=== PATIENT | male | born 1955 | race Caucasian/White ===

== ENCOUNTER → 2016-12-22 | Outpatient (CLI) | payer MEDICARE | LOC: OD 09:06 | PROVIDERS: ATTEND Internal Medicine Medical Oncology | DX: C34.32 Malignant neoplasm of lower lobe, left bronchus or lung (principal) | CPT/HCPCS: 71020 ==

== ENCOUNTER 2017-04-06 00:18 | Emergency (ER) | payer MEDICARE ==
[2017-04-06 00:26] VITALS: BP 117/70
[2017-04-06] MEDS ORDERED: LIDOCAINE 1% INJ-PF (10 MG/ML) 30 ML SDV INJ ONE (00:39)
--- NOTE | 2017-04-06 00:43 | ER Document Report ---
ED General - General Chief Complaint: Laceration Stated Complaint: FOOT INJURY Time Seen by Provider: 04/06/17 00:36 Notes: Patient is a 61-year-old male who presents after cutting a bottom of his right foot. Patient stepped out of the car and sample came off and then he stepped on some sharp because of his foot. Because it is at the base of the right toe. He was bleeding earlier. He is on Plavix. Bleeding is now controlled. No other complaints or injuries other than a scrape over his right elbow. Tetanus shot was approximately 3-4 years ago. TRAVEL OUTSIDE OF THE [place] IN LAST 30 DAYS: No - Related Data Allergies/Adverse Reactions: Penicillins Allergy (Verified 08/06/16 21:34) Past Medical History - Social History Smoking Status: Never Smoker Frequency of alcohol use: None Drug Abuse: None Family History: Reviewed & Not Pertinent Patient has suicidal ideation: No Patient has homicidal ideation: No - Past Medical History Cardiac Medical History: Reports: Hx Coronary Artery Disease, Hx Heart Attack - x3, most recent 1997, Hx Hypercholesterolemia, Hx Hypertension, Hx Peripheral Vascular Disease Pulmonary Medical History: Reports: Hx Bronchitis, Hx COPD, Hx Pneumonia, Hx Sleep Apnea Neurological Medical History: Reports: Hx Migraine, Hx Seizures Renal/ Medical History: Reports: Hx Benign Prostatic Hyperplasia. Denies: Hx Peritoneal Dialysis Malignancy Medical History: Reports Hx Lung Cancer Musculoskeltal Medical History: Reports Hx Arthritis Psychiatric Medical History: Reports: Hx Anxiety, Hx Depression Past Surgical History: Reports: Hx Cardiac Catheterization - Stent 2, Hx Cardiac Surgery, Hx Cholecystectomy - Immunizations Immunizations up to date: Yes Hx Diphtheria, Pertussis, Tetanus Vaccination: Yes Hx Pneumococcal Vaccination: 09/20/11 Review of Systems - Review of Systems Notes: My Normal Review Basic REVIEW OF SYSTEMS: CONSTITUTIONAL : Denies fever, chills, or sweats. Denies recent illness. MUSCULOSKELETAL: cut on Base of right fourth toe. SKIN: Denies rash or skin lesions. NEUROLOGICAL: Denies sensory or motor loss. ALL OTHER SYSTEMS REVIEWED AND NEGATIVE. Physical Exam - Vital signs Vitals: Temp Pulse Resp BP Pulse Ox 97.6 F 91 18 117/70 95 04/06/17 00:20 04/06/17 00:20 04/06/17 00:20 04/06/17 00:20 04/06/17 00:20 - Notes Notes: General Appearance: Well nourished, somnolent but says that he is always like this after he takes his sleeping medications. This is his normal baseline at nighttime., cooperative, no acute distress, no obvious discomfort. Vitals: reviewed, See vital signs table. Extremities: strength 5/5 in all extremities, good pulses in all extremities, cut on the mei of the right 4th toe on the plantar aspect. Wound is dirty, no edema. Skin: warm, dry, appropriate color, no rash. superficial abrasion to right arm. Neuro: distal Sensation intact. Course - Vital Signs Vital signs: Temp Pulse Resp BP Pulse Ox 97.6 F 91 18 117/70 95 04/06/17 00:20 04/06/17 00:20 04/06/17 00:20 04/06/17 00:20 04/06/17 00:20 - Transfer of Care Notes: 04/06/17 01:53 Wound was thoroughly irrigated and cleaned. It was sutured closed. The nurse did apply sterile dressings to the wound of the toe. She also applied a sterile dressing to the skin tear on the right arm. I will place him on doxycycline because the wound is on the bottom of the foot to the dirty area. I will do this to help prevent infection. X-ray showed no evidence for foreign body. Patient will be discharged home but they are encouraged to return to ER if there is any redness or swelling or signs of infection. Patient's family member agrees with plan and patient will be discharged home. Dictation of this chart was performed using voice recognition software; therefore, there may be some unintended grammatical errors. Procedures - Laceration/Wound Repair Right Toe 4th digit Wound length (cm): 1 Wound's Depth, Shape: Linear Anesthetic type: 1% Lidocaine Wound explored: Clean Irrigated w/ Saline (mLs): 90 Wound Repaired With: Sutures Suture Size/Type: 6:0, Ethilon Number of Sutures: 3 Post-procedure NV exam normal: Yes Complications: No Discharge - Discharge Clinical Impression: Toe laceration Qualifiers: Encounter type: initial encounter Toe: unspecified toe Damage to nail status: without damage Foreign body presence: without foreign body Laterality: right Qualified Code(s): S91.119A - Laceration without foreign body of unspecified toe without damage to nail, initial encounter Condition: Good Disposition: HOME, SELF-CARE Additional Instructions: LACERATION CARE: Your laceration has been sutured to keep the skin edges aligned during healing. The time of suture removal depends on the nature and location of your cut. Please follow the care instructions the doctor has outlined for you and return for further care, according to the schedule you've been given. Keep the wound and dressing clean. Unless you were told otherwise, you may shower daily, blotting the wound dry with a clean, unused towel. At other times, If the dressing gets wet or blood soaked, remove it and blot the wound dry, then reapply a new dressing. Unless you were instructed otherwise, dressings should be changed at least daily. If any signs of infection occur (swelling, redness, drainage, increasing tenderness, red streaks, tender lumps in the armpit or groin above the laceration, or fever), see the doctor immediately. SOAP CLEANSING: Gently wash the wound daily using a mild soap (like Ivory, Phisoderm, Neutrogena). Use warm water, rubbing gently until all debris, ooze, and crusting have been washed from the wound. Allow to dry briefly (about 10 minutes) after cleaning. Repeat this cleansing at least three times a day for the first two days and then once or twice a day. PROPHYLACTIC ANTIBIOTIC: The antibiotics which have been prescribed are designed to decrease the risk of infection. Only certain types of wounds benefit from this -- the typical cut, scrape, or burn DOES NOT require antibiotics. Of course, infection can still occur despite the use of prophylactic antibiotics. Your wound will heal with less chance of an infectious complication if you take the medication as directed. The most important dose is the FIRST dose, so don't delay filling the prescription! ORAL FOLLOW-UP CARE: Your sutures should be removed in __7___ days. To facilitate a timely removal of your sutures, you may return to the Emergency Department at [facility]. You do not need to call for an appointment, but the best time to come in for suture removal is early in the morning. If you have been referred to another physician for follow-up care, call that physicians office for an appointment as you were instructed. If you experience a significant change in your laceration, or if you are concerned there may be an infection (swelling, redness, drainage, increasing tenderness, red streaks, tender lumps in the armpit or groin above the laceration, or fever) , return to the Emergency Department immediately re-evaluation. Please stay out of the sun because the antibiotic you are on will make your skin very sensitive to the sun. Prescriptions: Doxycycline Hyclate 100 mg PO AC #7 capsule
--- NOTE | 2017-04-06 01:36 | RADIOLOGY REPORT (SQ) ---
EXAM DESCRIPTION: TOE RIGHT COMPLETED DATE/TIME: 04/06/2017 1:23 am REASON FOR STUDY: laceration 4th toe right foot COMPARISON: None. NUMBER OF VIEWS: Three views. 4 images. TECHNIQUE: AP, lateral, and oblique images acquired of the right fourth toe. LIMITATIONS: None. FINDINGS: MINERALIZATION: Normal. BONES: No acute fracture or dislocation. No worrisome bone lesions. JOINTS: No effusions. SOFT TISSUES: Clinically known right 4th toe soft tissue laceration. No foreign body. OTHER: No other significant finding. IMPRESSION: Soft tissue injury. No evidence of acute bone or joint involvement. No radiopaque fore ign body. COMMENT: SITE OF TRAUMA/COMPLAINT MARKED/STAMP COMPLETED: YES. TECHNICAL DOCUMENTATION: JOB ID: [id number] [employer]- All Rights Reserved
[2017-04-06] MEDS ORDERED: DOXYCYCLINE HYCLATE 100 MG TABLET PO ONE (01:51)
== END 2017-04-06 02:30 | disposition home or self-care (01) ==
LOC: ER 00:18
PROC: 0HQMXZZ Repair Right Foot Skin, External Approach (ICD-10-PCS; principal; 2017-04-06)
DX: S91.311A Laceration without foreign body, right foot, initial encounter (principal); W45.8XXA Other foreign body or object entering through skin, initial encounter
CPT/HCPCS: 99283; 73660; 12001; A9270; J3490

== ENCOUNTER → 2017-12-16 | Outpatient (CLI) | payer MEDICARE ==
--- NOTE | 2017-12-16 14:19 | RADIOLOGY REPORT (SQ) ---
EXAM DESCRIPTION: CT CHEST WITH COMPLETED DATE/TIME: 12/16/2017 11:52 am REASON FOR STUDY: PERSONAL HX OF LUNG CA (Z85.118) Z85.118 PERSONAL HISTORY OF MALIGNANT NEOPLASM O F BRONCHUS A COMPARISON: Chest x-ray 12/22/[address] 03/31/2015 TECHNIQUE: CT scan of the chest performed using helical scanning technique with dynamic intravenous contrast injection. Images reviewed with lung, soft tissue and bone windows. Reconstructed coronal and sagittal MPR images reviewed. All images stored on PACS. All CT scanners at this facility use dose modulation, iterative reconstruction, and/or weight based d osing when appropriate to reduce radiation dose to as low as reasonably achievable (ALARA). [facility]: Dose Right [facility]: CareDose [facility]: Dose Right [facility]: Teradose 4D [facility]: [employer] CONTRAST TYPE AND DOSE: contrast/concentration: Isovue 370.00 mg/ml; Total Contrast Delivered: 80.0 ml; Total Saline Delivered: 55.0 ml RENAL FUNCTION: Creatinine 0.8 RADIATION DOSE: CT Rad equipment meets quality standard of care and radiation dose reduction techniq ues were employed. CTDIvol: 6.4 mGy. DLP: 250 mGy-cm. . LIMITATIONS: None. FINDINGS: LUNGS AND PLEURA: Emphysematous changes are present in both upper lobes. There is no new pulmonary mass. There is no pleural effusion. HILAR AND MEDIASTINAL STRUCTURES: No identified masses or abnormal nodes. HEART AND VASCULAR STRUCTURES: No aneurysm or dissection. No central pulmonary emboli. No pericardi al effusion. HARDWARE: None in the chest. UPPER ABDOMEN: No significant findings. Limited exam. THYROID AND OTHER SOFT TISSUES: No masses. No adenopathy. BONES: No significant finding. OTHER: No other significant finding. IMPRESSION: Pulmonary emphysema. There is no evidence of recurrent or metastatic neoplasm in the est. TECHNICAL DOCUMENTATION: JOB ID: [id number] Quality ID # [id number]: Final reports with documentation of one or more dose reduction techniques (e.g., Au tomated exposure control, adjustment of the mA and/or kV according to patient size, use of iterative reconstruction technique) 2010 [employer]- All Rights Reserved Reading location - IP/workstation name: [email or web address]
== END ==
LOC: RAD 10:41
PROVIDERS: ATTEND Internal Medicine
DX: Z85.118 Personal history of other malignant neoplasm of bronchus and lung (principal); J43.9 Emphysema, unspecified
CPT/HCPCS: 71260; 82565

== ENCOUNTER 2018-10-17 22:38 | Emergency (ER) | payer MEDICARE ==
[2018-10-18] MEDS ORDERED: OXYCODONE-ACETAMINOPHEN 5-325 MG TABLET PO ONE (00:34)
--- NOTE | 2018-10-18 00:58 | ER Document Report ---
HPI - HPI Patient complains to provider of: right rib pain Time Seen by Provider: 10/18/18 00:19 Pain Level: 5 Context: Patient is a 63-year-old male presents to the emergency department complaining of a right rib pain. Patient states about a week ago he tripped and fell onto the concrete onto his right side. Patient states he has been experiencing right pain below his scapula and radiating around underneath his right arm. Patient states it hurts more when you palpate that area and when he takes a deep breath. Patient denies hitting his head, neck, or loss of consciousness upon initial fall. Past medical history: [place], left lung cancer, hypertension, hyperlipidemia Medications: Unknown Allergies: Penicillin Past Medical History - General Information source: Patient - Social History Smoking Status: Current Every Day Smoker Chew tobacco use (# tins/day): No Frequency of alcohol use: None Drug Abuse: None Family History: Reviewed & Not Pertinent Patient has suicidal ideation: No Patient has homicidal ideation: No - Past Medical History Cardiac Medical History: Reports: Hx Coronary Artery Disease, Hx Heart Attack - x3, most recent 1997, Hx Hypercholesterolemia, Hx Hypertension, Hx Peripheral Vascular Disease Pulmonary Medical History: Reports: Hx Bronchitis, Hx COPD, Hx Pneumonia, Hx Sleep Apnea Neurological Medical History: Reports: Hx Migraine, Hx Seizures Renal/ Medical History: Reports: Hx Benign Prostatic Hyperplasia. Denies: Hx Peritoneal Dialysis Malignancy Medical History: Reports Hx Lung Cancer Musculoskeletal Medical History: Reports Hx Arthritis Psychiatric Medical History: Reports: Hx Anxiety, Hx Depression Past Surgical History: Reports: Hx Cardiac Catheterization - Stent 2, Hx Cardiac Surgery, Hx Cholecystectomy - Immunizations Immunizations up to date: Yes Hx Diphtheria, Pertussis, Tetanus Vaccination: Yes Hx Pneumococcal Vaccination: 09/20/11 Vertical Provider Document - CONSTITUTIONAL Agree With Documented VS: Yes Notes: GENERAL: Smells heavily of cigarette smoke in patient room. Alert, interacts well. No acute distress. HEAD: Normocephalic, atraumatic. EYES: Pupils equal, round, and reactive to light. Extraocular movements intact. ENT: Oral mucosa moist, tongue midline. NECK: Full range of motion. Supple. Trachea midline. LUNGS: Clear to auscultation bilaterally, no wheezes, rales, or rhonchi. No respiratory distress. Chest: No crepitus felt, no erythema or ecchymosis noted. Patient complains of pain below right scapula upon palpation and radiating around to below right nipple during palpation of ribs. HEART: Regular rate and rhythm. No murmur ABDOMEN: Soft, non-tender. Non-distended. Bowel sounds present in all 4 quadrants. EXTREMITIES: Moves all 4 extremities spontaneously. No edema, normal radial and dorsalis pedis pulses bilaterally. No cyanosis. BACK: no cervical, thoracic, lumbar midline tenderness. No saddle anesthesia, normal distal neurovascular exam. NEUROLOGICAL: Alert and oriented x3. Normal speech. cranial nerves II through XII grossly intact PSYCH: Normal affect, normal mood. SKIN: Warm, dry, normal turgor. No rashes or lesions noted. - INFECTION CONTROL TRAVEL OUTSIDE OF THE [place] IN LAST 30 DAYS: No Course - Re-evaluation Re-evalutation: 10/18/18 01:14 Patient's chest x-ray does reveal a poorly defined nodular opacity in the right upper lobe measuring 3.6 x 3.0 cm. Patient does have a history of lung cancer in his left side. States he has not been to oncology within a year. Discussed with him at length the need to follow-up with primary care provider and inevitably oncology to get an outpatient CT and potentially biopsy. No rib fractures seen at this time. No pneumothorax seen. Discussed chest x-ray with the Dr. Bae who does recommend covering the patient for community-acquired pneumonia. Discussed this at length with patient. Patient and agree ends with treatment plan. Patient stable for discharge. 10/18/18 01:27 Patient is on a pain management contract for chronic back pain. He refuses narcotics in the emergency room but does have his prescription narcotics with him. Discussed need to continue to take those for rib pain. - Vital Signs Vital signs: Temp Pulse Resp BP Pulse Ox 98.2 F 98 20 114/70 94 10/17/18 22:54 10/17/18 22:54 10/17/18 22:54 10/17/18 22:54 10/17/18 22:54 Discharge - Discharge Clinical Impression: Rib pain Pneumonia Qualifiers: Pneumonia type: due to unspecified organism Laterality: right Lung location: upper lobe of lung Qualified Code(s): J18.1 - Lobar pneumonia, unspecified organism Condition: Stable Disposition: HOME, SELF-CARE Instructions: Chest Wall Pain ([facility]), Pneumonia ([facility]) Additional Instructions: As we discussed you have been seen and treated in the emergency department for pain in your right ribs. Because it is unclear exactly what is showing up on your chest x-ray I am going to cover you for pneumonia. This means you need to take antibiotics as prescribed. You should continue to follow-up with your primary care provider and inevitably oncology in case this is not pneumonia. Please use incentive spirometer as often as possible. Please take pain medication around the clock to aid in your pain. Please return to the emergency room for any other concerning symptoms. Prescriptions: Doxycycline Hyclate 100 mg PO BID #14 capsule Referrals: AYDEE SAUCEDA MD [Primary Care Provider] - Follow up as needed
--- NOTE | 2018-10-18 01:05 | RADIOLOGY REPORT (SQ) ---
EXAM DESCRIPTION: XR CHEST 2 VIEWS COMPLETED DATE/TME: 10/18/2018 00:00 CLINICAL HISTORY: 63 years, Male, rib pain COMPARISON: CT chest 12/16/2017, chest x-ray 12/22/2016. NUMBER OF VIEWS: 2 TECHNIQUE: Frontal and lateral views of the chest LIMITATIONS: None. FINDINGS: The heart size is normal. PICC catheter in place. The distal tip has a coiled appearance in the region of the subclavian vein,. Osteopenia. Poorly defined nodular opacity in the right upper lobe measuring 3.6 x 3.0 cm. Underlying emphysema. IMPRESSION: Poorly defined, nodular opacity in the right upper lobe, for which malignancy is not excluded. Follow-up with CT recommended. Underlying emphysema. copyright 2010 [employer]- All Rights Reserved
[2018-10-18 01:28] VITALS: BP 128/70
== END 2018-10-18 01:30 | disposition home or self-care (01) ==
LOC: ER 22:38
DX: J18.1 Lobar pneumonia, unspecified organism (principal); R07.81 Pleurodynia; W01.0XXA Fall on same level from slipping, tripping and stumbling without subsequent striking against object, initial encounter; M79.601 Pain in right arm; F17.200 Nicotine dependence, unspecified, uncomplicated; I25.10 Atherosclerotic heart disease of native coronary artery without angina pectoris; I25.2 Old myocardial infarction; I10 Essential (primary) hypertension; J44.9 Chronic obstructive pulmonary disease, unspecified
CPT/HCPCS: 71046; 99283

== ENCOUNTER → 2018-11-14 | Outpatient (CLI) | payer MEDICARE ==
--- NOTE | 2018-11-14 10:41 | RADIOLOGY REPORT (SQ) ---
EXAM DESCRIPTION: CT CHEST WITH COMPLETED DATE/TIME: 11/14/2018 10:18 am REASON FOR STUDY: MALIGNANT NEOPLASM OF UNSPEC PART OF UNSPEC LUNG (C34.90) C34.90 MALIGNANT NEOPLA SM OF UNSP PART OF UNSP BRONCHUS OR L COMPARISON: 12/16/2017 TECHNIQUE: CT scan of the chest performed using helical scanning technique with dynamic intravenous contrast injection. Images reviewed with lung, soft tissue and bone windows. Reconstructed coronal and sagittal MPR and MIP images reviewed. All images stored on PACS. All CT scanners at this facility use dose modulation, iterative reconstruction, and/or weight based d osing when appropriate to reduce radiation dose to as low as reasonably achievable (ALARA). [facility]: Dose Right [facility]: CareDose [facility]: Dose Right [facility]: Teradose 4D [facility]: [facility] CONTRAST TYPE AND DOSE: contrast/concentration: Isovue 350.00 mg/ml; Total Contrast Delivered: 80.0 ml; Total Saline Delivered: 55.0 ml 80 cc Omnipaque 350 RENAL FUNCTION: Creatinine 0.7 RADIATION DOSE: CT Rad equipment meets quality standard of care and radiation dose reduction techniq ues were employed. CTDIvol: 6.8 mGy. DLP: 273 mGy-cm. . LIMITATIONS: None. FINDINGS: LUNGS AND PLEURA: There is a new anterior right-sided pleural based and chest wall mass me asuring approximately 8.5 x 4.7 cm (series 2, image 18). There is extension through the chest wall w ith involvement of the right anterolateral 2nd and 3rd ribs. There is associated pathologic right 3r d rib fracture. Postsurgical changes from the left lobectomy. There is centrilobular and panacinar emphysema. Additional fibrotic change along the peripheral right upper pain anterior left lobes, lik ela treatment related. No pneumothorax. No significant pleural effusion. HILAR AND MEDIASTINAL STRUCTURES: Mediastinal adenopathy, largest precarinal node measures 13 mm in s hort axis (series 4, image 54). HEART AND VASCULAR STRUCTURES: Coronary atherosclerosis. Normal heart size. No pericardial effusion . HARDWARE: Right approach central venous catheter looped within the right brachiocephalic vein. UPPER ABDOMEN: No significant findings. Limited exam. THYROID AND OTHER SOFT TISSUES: No masses. No adenopathy. BONES: Pathologic rib fracture of the anterolateral right-sided 3rd rib. Lytic appearance of the ant erior right 2nd and 3rd rib. No additional acute osseous abnormality. IMPRESSION: 1. New anterior right pleural-based mass measuring 8.5 x 4.7 cm most compatible with ne oplasm. There is extension through the chest wall with involvement of the right 2nd and 3rd ribs wit h pathologic right 3rd rib fracture. 2. Mediastinal adenopathy, largest precarinal node measures 13 mm, suspicious for metastatic disease . TECHNICAL DOCUMENTATION: JOB ID: [id number] Quality ID # [id number]: Final reports with documentation of one or more dose reduction techniques (e.g., Au tomated exposure control, adjustment of the mA and/or kV according to patient size, use of iterative reconstruction technique) 2010 [employer]- All Rights Reserved Reading location - IP/workstation name: [email or web address]
== END ==
LOC: RAD 09:32
PROVIDERS: ATTEND Internal Medicine
DX: C34.90 Malignant neoplasm of unspecified part of unspecified bronchus or lung (principal); J44.9 Chronic obstructive pulmonary disease, unspecified; R22.2 Localized swelling, mass and lump, trunk; R59.0 Localized enlarged lymph nodes
CPT/HCPCS: 71260; 82565

== ENCOUNTER → 2018-11-19 | Outpatient (CLI) | payer MEDICARE ==
--- NOTE | 2018-11-20 09:55 | RADIOLOGY REPORT (SQ) ---
EXAM DESCRIPTION: PET CT SKULL/THIGH COMPLETED DATE/TIME: 11/19/2018 9:05 pm REASON FOR STUDY: LUNG CANCER C34.01 MALIGNANT NEOPLASM OF RIGHT MAIN BRONCHUS COMPARISON: None. Correlation: Chest CT 11/14/2018. RADIONUCLIDE AND DOSE: 9.6 mCi F18 FDG The route of agent administration: Intravenous FASTING BLOOD SUGAR: 117 mg/dl CONTRAST TYPE AND DOSE: No CT contrast given. TECHNIQUE: Blood glucose level was verified. Above dose of FDG was injected intravenously. 2-D seg mented attenuation correction images were obtained from the base of the skull to the midthighs. Nonc ontrast CT images were obtained for attenuation correction and fusion with emission images. CT image s were performed without oral or intravenous contrast and are not sensitive for parenchymal lesions. A series of overlapping emission PET images were obtained. Images reviewed and manipulated at [facility] work station by the radiologist. Images stored on PACS. LIMITATIONS: None. FINDINGS: HEAD AND NECK: No areas of abnormal metabolic activity in the soft tissues of the head and neck. CHEST: Right upper lung anterior chest wall mass 12.2 SUV. Unchanged morphologically from recent CT. ABDOMEN AND PELVIS: No areas of abnormal metabolic activity in the abdomen or pelvis. Expected physi ologic activity is present in the genitourinary system and bowel. PROXIMAL LOWER EXTREMITIES: No areas of abnormal metabolic activity in the soft tissues of the lower extremities. BONES: No abnormal metabolic activity in the visualized skeleton. ADDITIONAL CT FINDINGS: No additional significant findings on the noncontrast CT images. OTHER: Blood pool 1.8 SUV. Background liver 2.4 SUV. IMPRESSION: Hypermetabolic right anterior chest wall mass. No evidence of metastatic disease. TECHNICAL DOCUMENTATION: JOB ID: [id number] [employer]- All Rights Reserved Reading location - IP/workstation name: [email or web address]
== END ==
LOC: RAD 18:15
PROVIDERS: ATTEND Internal Medicine Medical Oncology
DX: C34.91 Malignant neoplasm of unspecified part of right bronchus or lung (principal)
CPT/HCPCS: 78815; A9552

== ENCOUNTER → 2018-11-21 | Day surgery (SDC) | payer MEDICARE ==
[~2018-11-21] MED LIST: FENTANYL CITRATE INJ/PF 100 MCG/2 ML AMPUL ONE; LIDOCAINE 1% INJ-PF (10 MG/ML) 30 ML SDV ONE; MIDAZOLAM 2 MG/2 ML INJ ONE
[2018-11-21 09:27] LABS: HEMOGLOBIN 14.3 g/dL (13.5-17.0); MEAN CORPUSCULAR HEMOGLOBIN 33.3 pg (27.0-33.4); MEAN CORPUSCULAR HGB CONC 34.8 g/dL (32.0-36.0); MEAN CORPUSCULAR VOLUME 96 fl (80-97); PLATELET COUNT 360 10^3/uL (150-450); RED BLOOD COUNT 4.29 10^6/uL (4.35-5.55); RED CELL DISTRIBUTION WIDTH 12.1 % (11.5-14.0); WHITE BLOOD COUNT 25.5 10^3/uL (4.0-10.5)
[2018-11-21 09:44] LABS: BLOOD UREA NITROGEN 5 mg/dL (7-20)
[2018-11-21 09:58] LABS: INTERNATIONAL RATION (INR) 0.97; PROTHROMBIN TIME 13.4 SEC (11.4-15.4)
[2018-11-21 09:59] LABS: PARTIAL THROMBOPLASTIN TIME 36.6 SEC (23.5-35.8)
--- NOTE | 2018-11-21 14:26 | RADIOLOGY REPORT (SQ) ---
EXAM DESCRIPTION: CT BIOPSY LUNG/MEDIASTINUM; CT NEEDLE PLACEMENT COMPLETED DATE/TIME: 11/21/2018 11:55 am REASON FOR STUDY: MALIGNANT NEOPLASM OF UNSPECIFIED PART OF RIGHT BRONCHUS; MALIGNANT NEOPLASM OF UN SPECIFIED PART OF RIGHT BRONCHUS, LUNG BIOPSY C34.91 MALIGNANT NEOPLASM OF UNSP PART OF RIGHT BRONCH US OR Z79.01 BUS OR [employer] (CURRENT) USE OF ANTICOAGULANTS COMPARISON: None. TECHNIQUE: CT guided biopsy of the right anterior chest wall mass performed with conscious sedation. CT Fluoroscopy Time: [address] scanners at this facility use dose modulation, iterative reconstruction, and/or weight based d osing when appropriate to reduce radiation dose to as low as reasonably achievable (ALARA). [facility]: Dose Right [facility]: CareDose [facility]: Dose Right [facility]: Teradose 4D [facility]: Smart ITema RADIATION DOSE: CT Rad equipment meets quality standard of care and radiation dose reduction techni ques were employed. CTDIvol: 16.1 mGy. DLP: 245 mGy-cm.mGy. FINDINGS: After obtaining informed consent and explaining the risks and benefits of conscious sedati on,the patient agreed to the procedure. Prior to the procedure, a time out was performed to verify th e patient's identity and planned procedure. IV sedation was administered and physician direction by the registered nurse using 1 milligrams of Ve rsed and 50 micrograms of fentanyl, for conscious sedation. Physiologic monitoring was provided befor e, during, and after sedation. The total sedation time was 30 minutes. Documentation face to face time, the performing proceduralist, spent monitoring the patient: [address] scanning was performed to localize the percutaneous site for the biopsy approach. After sterile skin prep and local lidocaine for skin and deep tissue anesthesia, a coaxial biopsy nee dle was used to obtain multiple cores of tissue. The biopsy tissue was submitted to the lab in forma angela. There were no immediate complications. Pathology is pending at the time of dictation. IMPRESSION: CT GUIDED BIOPSY OF THE RIGHT ANTERIOR CHEST WALL MASS PERFORMED WITHOUT IMMEDIATE COMPL ICATION. PATHOLOGY PENDING. COMMENT: Quality ID 145: Final reports for procedures using fluoroscopy that document radiation exp osure indices, or exposure time and number of fluorographic images (if radiation exposure indices are not available) Patient medication list reviewed: Yes- Quality ID# [id number]:Eligible professional attests to documenting i n the medical record they obtained, updated, or reviewed the patient's current medications.. TECHNICAL DOCUMENTATION: JOB ID: [id number] Quality ID# [id number]: Final reports with documentation of one or more dose reduction techniques (e.g., Aut omated exposure control, adjustment of the mA and/or kV according to patient size, use of iterative r econstruction technique) 2010 [employer]- All Rights Reserved Reading location - IP/workstation name: [email or web address]
--- NOTE | 2018-11-21 14:26 | RADIOLOGY REPORT (SQ) ---
EXAM DESCRIPTION: CT BIOPSY LUNG/MEDIASTINUM; CT NEEDLE PLACEMENT COMPLETED DATE/TIME: 11/21/2018 11:55 am REASON FOR STUDY: MALIGNANT NEOPLASM OF UNSPECIFIED PART OF RIGHT BRONCHUS; MALIGNANT NEOPLASM OF UN SPECIFIED PART OF RIGHT BRONCHUS, LUNG BIOPSY C34.91 MALIGNANT NEOPLASM OF UNSP PART OF RIGHT BRONCH US OR Z79.01 [employer] (CURRENT) USE OF ANTICOAGULANTS COMPARISON: None. TECHNIQUE: CT guided biopsy of the right anterior chest wall mass performed with conscious sedation. CT Fluoroscopy Time: [address] scanners at this facility use dose modulation, iterative reconstruction, and/or weight based d osing when appropriate to reduce radiation dose to as low as reasonably achievable (ALARA). [facility]: Dose Right [facility]: CareDose [facility]: Dose Right [facility]: Teradose 4D [facility]: Smart SmartMove RADIATION DOSE: CT Rad equipment meets quality standard of care and radiation dose reduction techni ques were employed. CTDIvol: 16.1 mGy. DLP: 245 mGy-cm.mGy. FINDINGS: After obtaining informed consent and explaining the risks and benefits of conscious sedati on,the patient agreed to the procedure. Prior to the procedure, a time out was performed to verify th e patient's identity and planned procedure. IV sedation was administered and physician direction by the registered nurse using 1 milligrams of Ve rsed and 50 micrograms of fentanyl, for conscious sedation. Physiologic monitoring was provided befor e, during, and after sedation. The total sedation time was 30 minutes. Documentation face to face time, the performing proceduralist, spent monitoring the patient: [address] scanning was performed to localize the percutaneous site for the biopsy approach. After sterile skin prep and local lidocaine for skin and deep tissue anesthesia, a coaxial biopsy nee dle was used to obtain multiple cores of tissue. The biopsy tissue was submitted to the lab in forma angela. There were no immediate complications. Pathology is pending at the time of dictation. IMPRESSION: CT GUIDED BIOPSY OF THE RIGHT ANTERIOR CHEST WALL MASS PERFORMED WITHOUT IMMEDIATE COMPL ICATION. PATHOLOGY PENDING. COMMENT: Quality ID 145: Final reports for procedures using fluoroscopy that document radiation exp osure indices, or exposure time and number of fluorographic images (if radiation exposure indices are not available) Patient medication list reviewed: Yes- Quality ID# [id number]:Eligible professional attests to documenting i n the medical record they obtained, updated, or reviewed the patient's current medications.. TECHNICAL DOCUMENTATION: JOB ID: [id number] Quality ID# 436: Final reports with documentation of one or more dose reduction techniques (e.g., Aut omated exposure control, adjustment of the mA and/or kV according to patient size, use of iterative r econstruction technique) 2010 [employer]- All Rights Reserved Reading location - IP/workstation name: [email or web address]
[2018-11-21 16:59] VITALS: BP 118/75
== END ==
LOC: RAD 08:26
PROVIDERS: ATTEND Internal Medicine Medical Oncology
DX: C34.91 Malignant neoplasm of unspecified part of right bronchus or lung (principal); I25.10 Atherosclerotic heart disease of native coronary artery without angina pectoris; E78.5 Hyperlipidemia, unspecified; J44.9 Chronic obstructive pulmonary disease, unspecified; E11.65 Type 2 diabetes mellitus with hyperglycemia; E11.49 Type 2 diabetes mellitus with other diabetic neurological complication; E78.00 Pure hypercholesterolemia, unspecified; Z72.0 Tobacco use; Z86.73 Personal history of transient ischemic attack (TIA), and cerebral infarction without residual deficits; Z79.82 Long term (current) use of aspirin; Z79.01 Long term (current) use of anticoagulants; Z88.0 Allergy status to penicillin; Z79.51 Long term (current) use of inhaled steroids; Z79.899 Other long term (current) drug therapy; Z79.02 Long term (current) use of antithrombotics/antiplatelets
CPT/HCPCS: 36415; 84520; 82565; 85027; 85610; 85730; 88342 ×2; 88341 ×2; 88305 ×2; 88313 ×2; 77012; 32405; J2250; J3010; J3490

== ENCOUNTER 2019-02-01 11:40 | Observation (INO) | payer MEDICARE ==
[2019-02-01 12:27] LABS: INTERNATIONAL RATION (INR) 0.99; PROTHROMBIN TIME 13.6 SEC (11.4-15.4)
[2019-02-01 12:28] LABS: HEMATOCRIT 20.7 % (37.9-51.0); MEAN CORPUSCULAR HEMOGLOBIN 36.5 pg (27.0-33.4); MEAN CORPUSCULAR HGB CONC 35.1 g/dL (32.0-36.0); MEAN CORPUSCULAR VOLUME 104 fl (80-97); PARTIAL THROMBOPLASTIN TIME 37.1 SEC (23.5-35.8); RED BLOOD COUNT 1.99 10^6/uL (4.35-5.55); RED CELL DISTRIBUTION WIDTH 19.3 % (11.5-14.0); WHITE BLOOD COUNT 4.9 10^3/uL (4.0-10.5)
[2019-02-01 12:35] LABS: APPEARANCE,URINE SLIGHTLY-CLOUDY; BILIRUBIN,URINE NEGATIVE (NEGATIVE); COLOR,URINE YELLOW; GLUCOSE, URINE 50 mg/dL (NEGATIVE); KETONES,URINE NEGATIVE (NEGATIVE); LEUKOCYTE ESTERASE,URINE NEGATIVE (NEGATIVE); NITRITE,URINE NEGATIVE (NEGATIVE); PROTEIN,URINE NEGATIVE (NEGATIVE); URINE SPECIFIC GRAVITY 1.006; UROBILINOGEN,URINE NEGATIVE mg/dL (<2.0)
[2019-02-01 12:48] LABS: ALANINE AMINOTRANSFERASE 28 U/L (21-72); ALBUMIN 2.9 g/dL (3.5-5.0); ALKALINE PHOSPHATASE 87 U/L (38-126); ANION GAP 7 (5-19); ASPARTATE AMINO TRANSFERASE 26 U/L (17-59); BILIRUBIN,DIRECT 0.2 mg/dL (0.0-0.4); BILIRUBIN,TOTAL 0.2 mg/dL (0.2-1.3); BLOOD UREA NITROGEN 6 mg/dL (7-20); CALCIUM 8.6 mg/dL (8.4-10.2); CARBON DIOXIDE 27 mmol/L (22-30); CHLORIDE 98 mmol/L (98-107); GLUCOSE 85 mg/dL (75-110); POTASSIUM 3.5 mmol/L (3.6-5.0); SODIUM 132.3 mmol/L (137-145); TOTAL PROTEIN 5.9 g/dL (6.3-8.2)
[2019-02-01] MEDS ORDERED: NORMAL SALINE 250 ML IV PRN (12:49)
[2019-02-01 12:58] LABS: HEMOGLOBIN 7.3 g/dL (13.5-17.0)
[2019-02-01 13:00] LABS: ABSOLUTE LYMPHOCYTES# (MANUAL) 0.8 10^3/uL (0.5-4.7); BASOPHILS % (MANUAL) 0 % (0-2); EOSINOPHILS % (MANUAL) 1 % (0-6); LYMPHOCYTES % (MANUAL) 16 % (13-45); MONOCYTES % (MANUAL) 21 % (3-13); SEGMENTED NEUTROPHILS % (MAN) 62 % (42-78); TOTAL CELLS COUNTED 100
[2019-02-01 13:03] LABS: ANISOCYTOSIS 2+; PLATELET COMMENT DECREASED; PLATELET COUNT 94 10^3/uL (150-450)
--- NOTE | 2019-02-01 14:43 | ER Document Report ---
ED General - General Chief Complaint: Abnormal Lab Results Stated Complaint: urinary issues Time Seen by Provider: 02/01/19 12:46 Notes: Patient was sent here to get blood. Patient of Dr. Padilla was with right lung cancer. He has been getting chemotherapy, most recently last week. Also receiving radiation therapy, having a dose this morning. Seen in Valerie's office jovani found to have a hemoglobin of 6.7. Sent here for blood. Patient says he is not vomiting any. Has never vomited blood. He is also not having any change in his bowels or diarrhea and has not noticed any blood in bowel movements. He has been unsteady on his feet and weak and falling. Was seen by Valerie yesterday and blood pressure was low so he got a couple of bags of fluid and then another couple of bags of fluid today. Patient received Procrit yesterday. Patient was diagnosed with lung cancer about 3 years ago and underwent a lower left lobectomy and was told he was free of cancer, but it has now recurred recently. TRAVEL OUTSIDE OF THE [place] IN LAST 30 DAYS: No - Related Data Allergies/Adverse Reactions: Penicillins Allergy (Verified 02/01/19 11:44) Past Medical History - Social History Smoking Status: Current Every Day Smoker Family History: Reviewed & Not Pertinent - Past Medical History Cardiac Medical History: Reports: Hx Coronary Artery Disease, Hx Heart Attack - x3, most recent 1997, Hx Hypercholesterolemia, Hx Hypertension, Hx Peripheral Vascular Disease Pulmonary Medical History: Reports: Hx Bronchitis, Hx COPD, Hx Pneumonia, Hx Sleep Apnea Neurological Medical History: Reports: Hx Migraine, Hx Seizures - brain injury. Denies: Hx Cerebrovascular Accident Renal/ Medical History: Reports: Hx Benign Prostatic Hyperplasia Malignancy Medical History: Reports Hx Lung Cancer Musculoskeletal Medical History: Reports Hx Arthritis Psychiatric Medical History: Reports: Hx Anxiety, Hx Depression Past Surgical History: Reports: Hx Cardiac Catheterization - Stent 2, Hx Cardiac Surgery, Hx Cholecystectomy - Immunizations Immunizations up to date: Yes Hx Diphtheria, Pertussis, Tetanus Vaccination: Yes Hx Pneumococcal Vaccination: 09/20/11 Review of Systems - Review of Systems Notes: REVIEW OF SYSTEMS: CONSTITUTIONAL : Denies fever. Feels generally weak. EENT: Denies eye, ear, mouth or throat pain or other symptoms. Abrasions of the nose from falling onto the floor. CARDIOVASCULAR: Denies chest pain. RESPIRATORY: Denies cough, chest congestion, or shortness of breath. GASTROINTESTINAL: Denies abdominal pain or nausea, vomiting, or diarrhea. GENITOURINARY: Denies difficulty or painful urinating, urinary frequency, blood in urine. MUSCULOSKELETAL: Denies back or neck pain. Denies joint pain or swelling. SKIN: Denies rash or skin lesions. NEUROLOGICAL: Denies LOC or altered mental status. Denies headache. Denies sensory loss or motor deficits. ALL OTHER SYSTEMS REVIEWED AND NEGATIVE. Physical Exam - Vital signs Vitals: Temp Pulse Resp BP Pulse Ox 98.1 F 100 16 96/51 L 95 02/01/19 11:46 02/01/19 11:46 02/01/19 11:46 02/01/19 11:46 02/01/19 11:46 Interpretation: Hypotensive Notes: PHYSICAL EXAMINATION: GENERAL: Well-appearing, in no acute distress. Blood pressure low. HEAD: Atraumatic, normocephalic. EYES: Pupils equal round and reactive to light, extraocular movements intact. ENT: oropharynx clear without exudates. Moist mucous membranes. There are 2 abrasions of the nose, one across the bridge of the nose and the other one at the tip of the nose. These are from the patient's falling. And hitting the floor NECK: Normal range of motion, supple. LUNGS: Breath sounds clear and equal bilaterally. HEART: Regular rate and rhythm without murmurs. ABDOMEN: Soft, nontender. No guarding or rebound. No masses. BACK: No tenderness throughout entire back. EXTREMITIES: Normal range of motion without pain. NEUROLOGICAL: Normal speech, normal gait. Normal sensory, motor, and reflex exams. Awake, alert, and oriented x3. Cranial nerves normal. PSYCH: Normal mood, normal affect. SKIN: Warm, dry, no rashes. Course - Re-evaluation Re-evalutation: 02/01/19 14:55 Patient's blood was typed and crossmatched and couple of units ordered. They are running at this time. I spoke with Dr. Victoria, this patient's primary care provider and he will admit the patient. 02/01/19 14:57 Patient's blood pressure has now come up to systolic over 100. - Vital Signs Vital signs: Temp Pulse Resp BP Pulse Ox 98.3 F 102 H 24 H 109/62 96 02/01/19 16:55 04/25/19 15:15 02/01/19 15:15 02/01/19 15:15 02/01/19 15:15 - Laboratory Result Diagrams: 02/01/19 12:03 02/01/19 12:03 Laboratory results interpreted by me: 02/01/19 02/01/19 02/01/19 12:03 12:03 12:03 RBC 1.99 L Hgb 7.3 L Hct 20.7 L MCV 104 H MCH 36.5 H RDW 19.3 H Plt Count 94 L Monocytes % (Manual) 21 H APTT Sodium 132.3 L Potassium 3.5 L BUN 6 L Total Protein 5.9 L Albumin 2.9 L Urine Glucose (UA) 50 H Crossmatch 02/01/19 02/01/19 12:03 12:06 RBC Hgb Hct MCV MCH RDW Plt Count Monocytes % (Manual) APTT 37.1 H Sodium Potassium BUN Total Protein Albumin Urine Glucose (UA) Crossmatch See Detail Discharge - Discharge Clinical Impression: Hypotension, Anemia, Lung cancer Condition: Stable Disposition: ADMITTED OBSERVATION Admitting Provider: Seth Unit Admitted: Telemetry
--- NOTE | 2019-02-01 19:06 | EKG REPORT ---
SEVERITY:- ABNORMAL ECG - SINUS RHYTHM BORDERLINE LEFT AXIS DEVIATION NONSPECIFIC ST-T CHANGES ANTEROSEPTAL LEADS : Confirmed by: Jimmy Valentine MD 01-Feb-2019 19:05:27
[2019-02-01] MEDS ORDERED: BUTALB/ACETAMINOPHEN/CAFFEINE 1 TAB EACH PO PRN (20:26)
[2019-02-01] MEDS ORDERED: ALBUTEROL SULFATE HFA (90 MCG/PUFF) 200 PUFF/8.5 GM MDI IH PRN (20:26)
[2019-02-01] MEDS ORDERED: PROCHLORPERAZINE MALEATE 10 MG TABLET PO PRN (20:26)
--- NOTE | 2019-02-01 20:26 | PDOC H&P ---
History of Present Illness Admission Date/PCP: 02/01/19 15:14 AYDEE SAUCEDA MD History of Present Illness: LAKSHMI ALAMO is a 63 year old male,He has malignant neoplasm of the Lung presently on active chemotherapy and also radiation therapy he was referred from oncologist office to the emergency room because of severe anemia despite Procrit administrationThe initial hemogram demonstrated low hemoglobin and also thrombocytopenia Past Medical History Cardiac Medical History: Reports: Coronary Artery Disease, Myocardial Infarction - x3, most recent 1997, Hyperlipidema, Hypertension, Peripheral Vascular Disease Pulmonary Medical History: Reports: Bronchitis, Chronic Obstructive Pulmonary Disease (COPD), Pneumonia, Sleep Apnea Neurological Medical History: Reports: Migraine, Seizures - brain injury Malignancy Medical History: Reports: Lung Cancer Musculoskeltal Medical History: Reports: Arthritis Psychiatric Medical History: Reports: Depression Hematology: Denies: Anemia Past Surgical History Past Surgical History: Reports: Cardiac Catheterization - Stent 2, Cholecystectomy Social History Smoking Status: Current Every Day Smoker Cigarettes Packs Per Day: 1 Number of Years Smokin Last Time Smoked: 02/01/2019 Frequency of Alcohol Use: None Hx Recreational Drug Use: No Drugs: None Hx Prescription Drug Abuse: No - Advance Directive Resuscitation Status: Full Code Family History Family History: Reviewed & Not Pertinent Parental Family History Reviewed: Yes Children Family History Reviewed: Yes Sibling(s) Family History Reviewed.: Yes Medication/Allergy Home Medications: Albuterol Sulfate [Proair HFA Inhalation Aerosol 8.5 gm MDI] 2 puff IH Q4HP PRN 02/01/19 Aspirin [Ecotrin 81 mg EC Tablet] 81 mg PO DAILY 02/01/19 Butalb/Acetaminophen/Caffeine [Fioricet (50-325-40 mg) Tablet] 1 tab PO Q4HP PRN 02/01/19 Carbamazepine [Tegretol 200 mg Tablet] 200 mg PO BID 02/01/19 Clopidogrel Bisulfate [Plavix 75 mg Tablet] 75 mg PO DAILY 02/01/19 Dexlansoprazole [Dexilant 30 mg Capsule] 30 mg PO DAILY 02/01/19 Diclofenac Sodium 1 gm TOP QID 02/01/19 Duloxetine HCl [Cymbalta] 60 mg PO BID 02/01/19 Finasteride [Proscar 5 mg Tablet] 5 mg PO QPM 02/01/19 Fluticasone Propionate [Flonase Nasal [place] 50 Mcg/[place] 16 gm] 1 spray NASL DAILY 02/01/19 Fluticasone/Salmeterol [Advair 250-50 Diskus 14 Dose/Diskus] 1 puff IH Q12 02/01/19 Folic Acid [Folvite 1 mg Tablet] 1 mg PO DAILY 02/01/19 Levetiracetam [Keppra 500 mg Tablet] 500 mg PO Q12 02/01/19 Levocetirizine Dihydrochloride [Xyzal] 5 mg PO QPM 02/01/19 Montelukast Sodium [Singulair 10 mg Tablet] 10 mg PO DAILY 02/01/19 Olanzapine [Zyprexa] 20 mg PO QHS 02/01/19 Oxycodone HCl 20 mg PO Q6 02/01/19 Pnv,Calcium 72/Iron/Folic Acid [Pnv Plus Multivit Tab] 1 tab PO DAILY 02/01/19 Prochlorperazine Maleate [Compazine 10 mg Tablet] 10 mg PO Q6HP PRN 02/01/19 Ramipril [Altace 2.5 mg Capsule] 2.5 mg PO DAILY 02/01/19 Rosuvastatin Calcium [Crestor 20 mg Tablet] 20 mg PO QHS 02/01/19 Tamsulosin HCl [Flomax 0.4 mg Cap.sr] 0.4 mg PO QPM 02/01/19 Tiotropium [place] [Spiriva Handihaler 5 Cap/Kit (18 Mcg/Cap)] 1 puff IH DAILY 02/01/19 Trihexyphenidyl HCl [Artane 2 mg Tablet] 2 mg PO QHS 02/01/19 Allergies/Adverse Reactions: Penicillins Allergy (Verified 02/01/19 11:44) Review of Systems Constitutional: PRESENT: fatigue. ABSENT: chills, fever(s), headache(s), weight gain, weight loss Eyes: ABSENT: visual disturbances Ears: ABSENT: hearing changes Cardiovascular: ABSENT: chest pain, dyspnea on exertion, edema, orthropnea, palpitations Respiratory: ABSENT: cough, hemoptysis Gastrointestinal: ABSENT: abdominal pain, constipation, diarrhea, hematemesis, hematochezia, nausea, vomiting Genitourinary: ABSENT: dysuria, hematuria Musculoskeletal: ABSENT: joint swelling Integumentary: ABSENT: rash, wounds Neurological: ABSENT: abnormal gait, abnormal speech, confusion, dizziness, focal weakness, syncope Psychiatric: ABSENT: anxiety, depression, homidical ideation, suicidal ideation Endocrine: ABSENT: cold intolerance, heat intolerance, menstrual abnormalities, polydipsia, polyuria Hematologic/Lymphatic: ABSENT: easy bleeding, easy bruising, lymphadenopathy Physical Exam Vital Signs: Temp Pulse Resp BP Pulse Ox 99.2 F 93 20 114/62 91 L 02/01/19 19:10 02/01/19 19:10 02/01/19 19:10 02/01/19 19:10 02/01/19 19:10 Intake & Output 01/31/19 02/01/19 02/02/19 06:59 06:59 06:59 Intake Total 850 Balance 850 Weight 75.9 kg General appearance: PRESENT: no acute distress Head exam: PRESENT: atraumatic, normocephalic Eye exam: PRESENT: conjunctiva pale, PERRLA Mouth exam: PRESENT: moist, tongue midline Neck exam: PRESENT: full ROM Cardiovascular exam: PRESENT: RRR, +S1, +S2 Vascular exam: PRESENT: normal capillary refill GI/Abdominal exam: PRESENT: normal bowel sounds, soft Rectal exam: PRESENT: deferred Neurological exam: PRESENT: alert, CN II-XII grossly intact Psychiatric exam: PRESENT: appropriate affect, normal mood Skin exam: PRESENT: dry, intact, warm Results Laboratory Results: 02/01/19 12:03 02/01/19 12:03 02/01/19 02/01/19 02/01/19 12:03 12:03 12:03 WBC 4.9 RBC 1.99 L Hgb 7.3 L Hct 20.7 L MCV 104 H MCH 36.5 H MCHC 35.1 RDW 19.3 H Plt Count 94 L Seg Neutrophils % Not Reportable Lymphocytes % Not Reportable Monocytes % Not Reportable Eosinophils % Not Reportable Basophils % Not Reportable Absolute Neutrophils Not Reportable Absolute Lymphocytes Not Reportable Absolute Monocytes Not Reportable Absolute Eosinophils Not Reportable Absolute Basophils Not Reportable Sodium 132.3 L Potassium 3.5 L Chloride 98 Carbon Dioxide 27 Anion Gap 7 BUN 6 L Creatinine 0.66 Est GFR ( Amer) > 60 Est GFR (Non-Af Amer) > 60 Glucose 85 Calcium 8.6 Total Bilirubin 0.2 AST 26 ALT 28 Alkaline Phosphatase 87 Total Protein 5.9 L Albumin 2.9 L Urine Color YELLOW Urine Appearance SLIGHTLY-CLOUDY Urine pH 7.0 Ur Specific [place] 1.006 Urine Protein NEGATIVE Urine Glucose (UA) 50 H Urine Ketones NEGATIVE Urine Blood NEGATIVE Urine Nitrite NEGATIVE Ur Leukocyte Esterase NEGATIVE Urine WBC (Auto) 0 Urine RBC (Auto) 0 Blood Type Antibody Screen 02/01/19 12:06 WBC RBC Hgb Hct MCV MCH MCHC RDW Plt Count Seg Neutrophils % Lymphocytes % Monocytes % Eosinophils % Basophils % Absolute Neutrophils Absolute Lymphocytes Absolute Monocytes Absolute Eosinophils Absolute Basophils Sodium Potassium Chloride Carbon Dioxide Anion Gap BUN Creatinine Est GFR ( Amer) Est GFR (Non-Af Amer) Glucose Calcium Total Bilirubin AST ALT Alkaline Phosphatase Total Protein Albumin Urine Color Urine Appearance Urine pH Ur Specific [place] Urine Protein Urine Glucose (UA) Urine Ketones Urine Blood Urine Nitrite Ur Leukocyte Esterase Urine WBC (Auto) Urine RBC (Auto) Blood Type A POSITIVE Antibody Screen NEGATIVE Assessment & Plan - Diagnosis (1) Anemia Qualifiers: Anemia type: other cause Other causes of anemia: antineoplastic chemotherapy Qualified Code(s): D64.81 - Anemia due to antineoplastic chemotherapy; T45.1X5A - Adverse effect of antineoplastic and immunosuppressive drugs, initial encounter Is this a current diagnosis for this admission?: Yes Plan: Patient is admitted for blood transfusion he has anemia related to chemotherapy (2) Lung cancer Qualifiers: Laterality: right Lung location: unspecified part of lung Qualified Code(s): C34.91 - Malignant neoplasm of unspecified part of right bronchus or lung Is this a current diagnosis for this admission?: Yes
[2019-02-01] MEDS ORDERED: (PENDING PHARMACY ID) (Dexlansoprazole [Dexilant 30 Mg Capsule] 30 MG) PO SCH (20:30)
[2019-02-01] MEDS ORDERED: (PENDING PHARMACY ID) (Pnv,Calcium 72/Iron/Folic Acid [Pnv Prenatal Plus Multivit Tab] 1 T PO SCH (20:30)
[2019-02-01] MEDS: TIOTROPIUM BROMIDE DPI 5 CAP/KIT (18 MCG/CAP) IH SCH (21:03)
[2019-02-01] MEDS: TAMSULOSIN HCL 0.4 MG CAP.SR.24H PO SCH (21:53)
[2019-02-01] MEDS: CETIRIZINE 5 MG TABLET PO SCH (21:53)
[2019-02-01] MEDS: LEVETIRACETAM 500 MG TABLET PO SCH (21:53)
[2019-02-01] MEDS: FOLIC ACID 1 MG TABLET PO SCH (21:54)
[2019-02-01] MEDS: FINASTERIDE 5 MG TABLET PO SCH (21:54)
[2019-02-01] MEDS: DULOXETINE HCL 30 MG CAPSULE.DR PO SCH (21:54)
[2019-02-01] MEDS: CARBAMAZEPINE 200 MG TABLET PO SCH (21:54)
[2019-02-01] MEDS: TRIHEXYPHENIDYL HCL 2 MG TABLET PO SCH (21:55)
[2019-02-01] MEDS: OLANZAPINE 5 MG TABLET PO SCH (21:55)
[2019-02-01] MEDS: MONTELUKAST SODIUM 10 MG TABLET PO SCH (21:55)
[2019-02-01] MEDS: OXYCODONE HCL IR 5 MG TABLET PO SCH (21:56)
[2019-02-01] MEDS: FLUTICASONE NASAL SPRAY 50 MCG/SPRY 120 SPRAY/16 GM NASL SCH (21:56)
[2019-02-01] MEDS: ATORVASTATIN CALCIUM 40 MG TABLET PO SCH (21:58)
[2019-02-01] MEDS ORDERED: (PENDING PHARMACY ID) (Fluticasone/Salmeterol 1 PUFF) IH SCH (22:00)
[2019-02-01] MEDS ORDERED: DICLOFENAC SODIUM 1 GM TOP SCH (22:00)
[2019-02-01] MEDS ORDERED: (PENDING PHARMACY ID) (Rosuvastatin Calcium [Crestor 20 Mg Tablet] 20 MG) PO SCH (22:00)
[2019-02-01] MEDS ORDERED: RAMIPRIL 2.5 MG CAPSULE ONE (22:04)
[2019-02-01] MEDS: RAMIPRIL 2.5 MG CAPSULE PO SCH (22:06)
[2019-02-02] MEDS: OXYCODONE HCL IR 5 MG TABLET PO SCH ×4 (02:26→21:37)
[2019-02-02 09:44] LABS: HEMATOCRIT 25.8 % (37.9-51.0); HEMOGLOBIN 8.9 g/dL (13.5-17.0); MEAN CORPUSCULAR HEMOGLOBIN 33.5 pg (27.0-33.4); MEAN CORPUSCULAR HGB CONC 34.6 g/dL (32.0-36.0); PLATELET COUNT 109 10^3/uL (150-450); RED BLOOD COUNT 2.66 10^6/uL (4.35-5.55); RED CELL DISTRIBUTION WIDTH 22.6 % (11.5-14.0); WHITE BLOOD COUNT 4.6 10^3/uL (4.0-10.5)
[2019-02-02] MEDS: RAMIPRIL 2.5 MG CAPSULE PO SCH (09:57)
[2019-02-02] MEDS: FLUTICASONE NASAL SPRAY 50 MCG/SPRY 120 SPRAY/16 GM NASL SCH (09:57)
[2019-02-02] MEDS: PRENATAL VITAMIN W DHA CAPSULE PO SCH (09:57)
[2019-02-02] MEDS: PANTOPRAZOLE SODIUM 20 MG TABLET.DR PO SCH (09:58)
[2019-02-02] MEDS: FLUTICASONE/VILANTEROL 200-25 MCG/DOSE IH SCH (09:58)
[2019-02-02] MEDS: DULOXETINE HCL 30 MG CAPSULE.DR PO SCH ×2 (09:58→21:35)
[2019-02-02] MEDS: CARBAMAZEPINE 200 MG TABLET PO SCH ×3 (09:59→20:22)
[2019-02-02] MEDS: FOLIC ACID 1 MG TABLET PO SCH (09:59)
[2019-02-02] MEDS: LEVETIRACETAM 500 MG TABLET PO SCH ×2 (09:59→21:35)
[2019-02-02] MEDS: MONTELUKAST SODIUM 10 MG TABLET PO SCH (09:59)
[2019-02-02 10:00] LABS: ALANINE AMINOTRANSFERASE 28 U/L (21-72); ALBUMIN 2.7 g/dL (3.5-5.0); ALKALINE PHOSPHATASE 86 U/L (38-126); ANION GAP 11 (5-19); ASPARTATE AMINO TRANSFERASE 21 U/L (17-59); BILIRUBIN,DIRECT 0.3 mg/dL (0.0-0.4); BILIRUBIN,TOTAL 0.4 mg/dL (0.2-1.3); BLOOD UREA NITROGEN 7 mg/dL (7-20); CALCIUM 8.5 mg/dL (8.4-10.2); CARBON DIOXIDE 25 mmol/L (22-30); CHLORIDE 98 mmol/L (98-107); GLUCOSE 157 mg/dL (75-110); POTASSIUM 3.5 mmol/L (3.6-5.0); SODIUM 134.3 mmol/L (137-145); TOTAL PROTEIN 5.5 g/dL (6.3-8.2)
[2019-02-02] MEDS: TIOTROPIUM BROMIDE DPI 5 CAP/KIT (18 MCG/CAP) IH SCH (10:00)
[2019-02-02 10:02] LABS: MEAN CORPUSCULAR VOLUME 97 fl (80-97)
[2019-02-02 10:17] LABS: ABSOLUTE MONOCYTES # (MANUAL) 0.6 10^3/uL (0.1-1.4); BAND NEUTROPHILS % (MANUAL) 4 % (3-5); BASOPHILS % (MANUAL) 0 % (0-2); EOSINOPHILS % (MANUAL) 0 % (0-6); LYMPHOCYTES % (MANUAL) 19 % (13-45); MONOCYTES % (MANUAL) 14 % (3-13); SEGMENTED NEUTROPHILS % (MAN) 61 % (42-78); TOTAL CELLS COUNTED 100
[2019-02-02 10:23] LABS: POLYCHROMASIA 1+
[2019-02-02 10:24] LABS: ANISOCYTOSIS 2+; OVALOCYTES 2+; PLATELET CLUMPS PRESENT; POIKILOCYTOSIS 1+; TEAR DROP CELLS SLIGHT
[2019-02-02 10:31] LABS: PLATELET COMMENT ADEQUATE
[2019-02-02] MEDS: IPRATROPIUM/ALBUTEROL 0.5-2.5 MG/3 ML AMPUL NEB PRN (17:27)
[2019-02-02] MEDS: FINASTERIDE 5 MG TABLET PO SCH (17:40)
[2019-02-02] MEDS: CETIRIZINE 5 MG TABLET PO SCH (17:40)
[2019-02-02] MEDS: TAMSULOSIN HCL 0.4 MG CAP.SR.24H PO SCH (17:40)
[2019-02-02] MEDS: ATORVASTATIN CALCIUM 40 MG TABLET PO SCH (21:35)
[2019-02-02] MEDS: TRIHEXYPHENIDYL HCL 2 MG TABLET PO SCH (21:35)
[2019-02-02] MEDS: OLANZAPINE 5 MG TABLET PO SCH (21:35)
[2019-02-02] MEDS ORDERED: PT OWN MED (POM) PO PRN (22:17)
[2019-02-03] MEDS: IPRATROPIUM/ALBUTEROL 0.5-2.5 MG/3 ML AMPUL NEB PRN ×2 (00:08→12:20)
[2019-02-03 04:39] LABS: MEAN CORPUSCULAR HEMOGLOBIN 33.2 pg (27.0-33.4); MEAN CORPUSCULAR HGB CONC 35.5 g/dL (32.0-36.0); PLATELET COUNT 115 10^3/uL (150-450); RED CELL DISTRIBUTION WIDTH 20.5 % (11.5-14.0); WHITE BLOOD COUNT 4.1 10^3/uL (4.0-10.5)
[2019-02-03 05:11] LABS: MEAN CORPUSCULAR VOLUME 93 fl (80-97)
[2019-02-03 05:18] LABS: ABSOLUTE LYMPHOCYTES# (MANUAL) 0.9 10^3/uL (0.5-4.7); ABSOLUTE MONOCYTES # (MANUAL) 0.5 10^3/uL (0.1-1.4); ABSOLUTE NEUTROPHILS# (MANUAL) 2.7 10^3/uL (1.7-8.2); BASOPHILS % (MANUAL) 0 % (0-2); EOSINOPHILS % (MANUAL) 0 % (0-6); LYMPHOCYTES % (MANUAL) 20 % (13-45); MONOCYTES % (MANUAL) 13 % (3-13); SEGMENTED NEUTROPHILS % (MAN) 66 % (42-78); TOTAL CELLS COUNTED 100
[2019-02-03 05:21] LABS: TOXIC GRANULATION 1+; TOXIC VACUOLATION PRESENT
[2019-02-03 05:22] LABS: ANISOCYTOSIS 2+; OVALOCYTES 2+; PLATELET COMMENT ADEQUATE; POIKILOCYTOSIS 2+; TEAR DROP CELLS 1+
--- NOTE | 2019-02-03 09:36 | RADIOLOGY REPORT (SQ) ---
EXAM DESCRIPTION: CHEST 2 VIEWS COMPLETED DATE/TIME: 02/03/2019 9:06 am REASON FOR STUDY: rule out pleural effusion COMPARISON: 10/18/2018. EXAM PARAMETERS: NUMBER OF VIEWS: two views TECHNIQUE: Digital Frontal and Lateral radiographic views of the chest acquired. RADIATION DOSE: NA LIMITATIONS: none FINDINGS: LUNGS AND PLEURA: Chronic interstitial changes. Faint density in the anterior right chest , unchanged. No pleural effusion or pneumothorax. MEDIASTINUM AND HILAR STRUCTURES: No masses or contour abnormalities. HEART AND VASCULAR STRUCTURES: Heart normal size. No evidence for failure. BONES: No acute findings. HARDWARE: PICC line. OTHER: No other significant finding. IMPRESSION: CHRONIC INTERSTITIAL CHANGES. FAINT DENSITY IN THE ANTERIOR RIGHT CHEST SECONDARY TO CH EST WALL MASS, UNCHANGED. NO PLEURAL EFFUSION OR PNEUMOTHORAX. TECHNICAL DOCUMENTATION: JOB ID: [id number] [employer]- All Rights Reserved Reading location - IP/workstation name: [email or web address]
[2019-02-03] MEDS: DULOXETINE HCL 30 MG CAPSULE.DR PO SCH (09:59)
[2019-02-03] MEDS: FLUTICASONE/VILANTEROL 200-25 MCG/DOSE IH SCH (09:59)
[2019-02-03] MEDS: FLUTICASONE NASAL SPRAY 50 MCG/SPRY 120 SPRAY/16 GM NASL SCH (09:59)
[2019-02-03] MEDS: FOLIC ACID 1 MG TABLET PO SCH (09:59)
[2019-02-03] MEDS: TIOTROPIUM BROMIDE DPI 5 CAP/KIT (18 MCG/CAP) IH SCH (10:00)
[2019-02-03] MEDS: MONTELUKAST SODIUM 10 MG TABLET PO SCH (10:00)
[2019-02-03] MEDS: PANTOPRAZOLE SODIUM 20 MG TABLET.DR PO SCH (10:00)
[2019-02-03] MEDS: PRENATAL VITAMIN W DHA CAPSULE PO SCH (10:00)
[2019-02-03] MEDS: LEVETIRACETAM 500 MG TABLET PO SCH (10:00)
--- NOTE | 2019-02-03 12:33 | PDOC DISCHARGE SUMMARY ---
General - Admit/Disc Date/PCP Admission Date/Primary Care Provider: 02/01/19 15:14 AYDEE SAUCEDA MD Discharge Date: 02/03/19 - Discharge Diagnosis (1) Anemia Is this a current diagnosis for this admission?: Yes (2) Lung cancer Is this a current diagnosis for this admission?: Yes - Additional Information Resuscitation Status: Full Code Home Medications: Albuterol Sulfate [Proair HFA Inhalation Aerosol 8.5 gm MDI] 2 puff IH Q4HP PRN 02/01/19 Aspirin [Ecotrin 81 mg EC Tablet] 81 mg PO DAILY 02/01/19 Butalb/Acetaminophen/Caffeine [Fioricet (50-325-40 mg) Tablet] 1 tab PO Q4HP PRN 02/01/19 Clopidogrel Bisulfate [Plavix 75 mg Tablet] 75 mg PO DAILY 02/01/19 Dexlansoprazole [Dexilant 30 mg Capsule] 30 mg PO DAILY 02/01/19 Diclofenac Sodium 1 gm TOP QID 02/01/19 Duloxetine HCl [Cymbalta] 60 mg PO BID 02/01/19 Finasteride [Proscar 5 mg Tablet] 5 mg PO QPM 02/01/19 Fluticasone Propionate [Flonase Nasal [place] 50 Mcg/[place] 16 gm] 1 spray NASL DAILY 02/01/19 Fluticasone/Salmeterol [Advair 250-50 Diskus 14 Dose/Diskus] 1 puff IH Q12 02/01/19 Folic Acid [Folvite 1 mg Tablet] 1 mg PO DAILY 02/01/19 Levetiracetam [Keppra 500 mg Tablet] 500 mg PO Q12 02/01/19 Levocetirizine Dihydrochloride [Xyzal] 5 mg PO QPM 02/01/19 Montelukast Sodium [Singulair 10 mg Tablet] 10 mg PO DAILY 02/01/19 Olanzapine [Zyprexa] 20 mg PO QHS 02/01/19 Oxycodone HCl 20 mg PO Q6 02/01/19 Pnv,Calcium 72/Iron/Folic Acid [Pnv Plus Multivit Tab] 1 tab PO DAILY 02/01/19 Prochlorperazine Maleate [Compazine 10 mg Tablet] 10 mg PO Q6HP PRN 02/01/19 Rosuvastatin Calcium [Crestor 20 mg Tablet] 20 mg PO QHS 02/01/19 Tamsulosin HCl [Flomax 0.4 mg Cap.sr] 0.4 mg PO QPM 02/01/19 Tiotropium [place] [Spiriva Hand[place]haler 5 Cap/Kit (18 Mcg/Cap)] 1 puff IH DAILY 02/01/19 Trihexyphenidyl HCl [Artane 2 mg Tablet] 2 mg PO QHS 02/01/19 History of Present Illness History of Present Illness: LAKSHMI ALAMO is a 63 year old male,He has malignant neoplasm of the Lung presently on active chemotherapy and also radiation therapy he was referred from oncologist office to the emergency room because of severe anemia despite Procrit administrationThe initial hemogram demonstrated low hemoglobin and also thrombocytopenia Hospital Course Hospital Course: Patient was transfused with 4 units of packed red blood cells Physical Exam Vital Signs: Temp Pulse Resp BP Pulse Ox 97.9 F 92 18 105/61 96 02/02/19 23:48 02/03/19 12:25 02/03/19 12:25 02/02/19 23:48 02/03/19 12:25 Intake & Output 02/02/19 02/03/19 02/04/19 06:59 06:59 06:59 Intake Total 850 1960 Balance 850 1960 Weight 75.1 kg 78.3 kg General appearance: PRESENT: no acute distress Head exam: PRESENT: atraumatic, normocephalic Eye exam: PRESENT: PERRLA Ear exam: PRESENT: normal external ear exam Neck exam: PRESENT: full ROM Respiratory exam: PRESENT: clear to auscultation todd Cardiovascular exam: PRESENT: RRR, +S1, +S2 Vascular exam: PRESENT: normal capillary refill GI/Abdominal exam: PRESENT: normal bowel sounds, soft Rectal exam: PRESENT: deferred Neurological exam: PRESENT: alert, awake, oriented to person, oriented to place, oriented to time, oriented to situation, CN II-XII grossly intact Psychiatric exam: PRESENT: appropriate affect, normal mood Skin exam: PRESENT: dry, intact, warm Results Laboratory Results: 02/03/19 03:59 02/02/19 09:16 02/01/19 02/03/19 12:06 03:59 WBC 4.1 RBC 3.00 L Hgb 10.0 L Hct 28.0 L MCV 93 D MCH 33.2 MCHC 35.5 RDW 20.5 H Plt Count 115 L Seg Neutrophils % Not Reportable Lymphocytes % Not Reportable Monocytes % Not Reportable Eosinophils % Not Reportable Basophils % Not Reportable Absolute Neutrophils Not Reportable Absolute Lymphocytes Not Reportable Absolute Monocytes Not Reportable Absolute Eosinophils Not Reportable Absolute Basophils Not Reportable Blood Type A POSITIVE Antibody Screen NEGATIVE Impressions: Chest X-Ray 02/03/19 00:00 IMPRESSION: CHRONIC INTERSTITIAL CHANGES. FAINT DENSITY IN THE ANTERIOR RIGHT CHEST SECONDARY TO CHEST WALL MASS, UNCHANGED. NO PLEURAL EFFUSION OR PNEUMOTHORAX. Qualifiers - * PATIENT BEING DISCHARGED WITH ANY OF THE FOLLOWING DIAGNOSIS: No
[2019-02-03 13:55] VITALS: BP 106/52
== END 2019-02-03 14:15 | disposition home or self-care (01) ==
LOC: ER 11:40 → EH 15:14 → 5 18:00
PROVIDERS: ADMIT Internal Medicine; ATTEND Internal Medicine
PROC: 30233N1 Transfusion of Nonautologous Red Blood Cells into Peripheral Vein, Percutaneous Approach (ICD-10-PCS; principal; 2019-02-01)
PROC: 30233N1 Transfusion of Nonautologous Red Blood Cells into Peripheral Vein, Percutaneous Approach (ICD-10-PCS; 2019-02-02)
DX: D64.81 Anemia due to antineoplastic chemotherapy (principal); T45.1X5A Adverse effect of antineoplastic and immunosuppressive drugs, initial encounter; C34.91 Malignant neoplasm of unspecified part of right bronchus or lung; D69.6 Thrombocytopenia, unspecified; R26.81 Unsteadiness on feet; F17.200 Nicotine dependence, unspecified, uncomplicated; I25.2 Old myocardial infarction; I25.10 Atherosclerotic heart disease of native coronary artery without angina pectoris; I73.9 Peripheral vascular disease, unspecified; S00.31XA Abrasion of nose, initial encounter; W19.XXXA Unspecified fall, initial encounter; R53.1 Weakness; I95.9 Hypotension, unspecified; N40.0 Benign prostatic hyperplasia without lower urinary tract symptoms; Z79.899 Other long term (current) drug therapy; Z79.82 Long term (current) use of aspirin; Z90.2 Acquired absence of lung [part of]; Z87.820 Personal history of traumatic brain injury; Z90.49 Acquired absence of other specified parts of digestive tract
CPT/HCPCS: 93005; 99284; 86900; 86901; 36415 ×3; 36430; 86850; 85025 ×3; 85610; 85730; 80053 ×2; 81001; 86920; 71046; 93010; 94640; G0378 ×4; P9016 ×2; A9270 ×31; J3490 ×4; J7620

== ENCOUNTER → 2019-04-01 | Outpatient (CLI) | payer MEDICARE ==
--- NOTE | 2019-04-02 09:26 | RADIOLOGY REPORT (SQ) ---
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 TECHNIQUE: Blood glucose level was verified. Above dose of FDG was injected intravenously. 2-D seg mented attenuation correction images were obtained from the base of the skull to the midthighs. Nonc ontrast CT images were obtained for attenuation correction and fusion with emission images. CT image s were performed without oral or intravenous contrast and are not sensitive for parenchymal lesions. A series of overlapping emission PET images were obtained. Images reviewed and manipulated at [facility] endCuídate work station by the radiologist. Images stored on PACS. LIMITATIONS: None. FINDINGS: HEAD AND NECK: No areas of abnormal metabolic activity in the soft tissues of the head and neck. CHEST: Persistent right anterior chest wall soft tissue mass, 5 x 4 cm in size. There is minimal res idual activity within the mass with SUV 2.7 to 3.0 (was 9 x 6 cm in size with SUV 12.2 on 11/19/2018). Again, this soft tissue mass encases the right anterior 2nd 3rd and 4th ribs with pathologic fractu res of the anterior right 3rd and 4th ribs. ABDOMEN AND PELVIS: No areas of abnormal metabolic activity in the abdomen or pelvis. Expected physi ologic activity is present in the genitourinary system and bowel. PROXIMAL LOWER EXTREMITIES: No areas of abnormal metabolic activity in the soft tissues of the lower extremities. BONES: No abnormal metabolic activity in the visualized skeleton. ADDITIONAL CT FINDINGS: Left lower lobectomy. Post cholecystectomy. Right permanent central line ti p coiled at the junction of the right subclavian and right jugular vein. Calcified coronary arteries . Obstructive lung disease. OTHER: Liver background activity 2.0 SUV. Blood pool background activity 1.7 SUV. IMPRESSION: Treatment response, with decrease in size and metabolic activity along right anterior ch est wall mass. TECHNICAL DOCUMENTATION: JOB ID: [id number] [employer]- All Rights Reserved Reading location - IP/workstation name: [email or web address]
== END ==
LOC: RAD 15:41
PROVIDERS: ATTEND Internal Medicine Medical Oncology
DX: C34.32 Malignant neoplasm of lower lobe, left bronchus or lung (principal)
CPT/HCPCS: 78815; A9552

== ENCOUNTER → 2019-05-15 | Outpatient (CLI) | payer MEDICARE, OTHER ==
--- NOTE | 2019-05-15 12:23 | RADIOLOGY REPORT (SQ) ---
EXAM DESCRIPTION: CT CHEST WITH COMPLETED DATE/TIME: 05/15/2019 10:08 am REASON FOR STUDY: C34.92 MALIGNANT NEOPLASM OF UNSP PART OF LEFT BRONCHUS OR LUNG C34.92 MALIGNANT NEOPLASM OF UNSP PART OF LEFT BRONCHUS OR L COMPARISON: CT lung biopsy 11/21/2018, 04/01/2015 CT chest 11/14/2018, 12/16/2017 TECHNIQUE: CT scan of the chest performed using helical scanning technique with dynamic intravenous contrast injection. Images reviewed with lung, soft tissue and bone windows. Reconstructed coronal and sagittal MPR and MIP images reviewed. All images stored on PACS. All CT scanners at this facility use dose modulation, iterative reconstruction, and/or weight based d osing when appropriate to reduce radiation dose to as low as reasonably achievable (ALARA). [facility]: Dose Right [facility]: CareDose [facility]: Dose Right [facility]: Teradose 4D [facility]: apta.me CONTRAST TYPE AND DOSE: contrast/concentration: Isovue 350.00 mg/ml; Total Contrast Delivered: 80.0 ml; Total Saline Delivered: 55.0 ml RENAL FUNCTION: Creatinine 0.7 RADIATION DOSE: CT Rad equipment meets quality standard of care and radiation dose reduction techniq ues were employed. CTDIvol: 5.6 mGy. DLP: 216 mGy-cm. . LIMITATIONS: None. FINDINGS: LUNGS AND PLEURA: Patient is post left lower lobectomy. Extensive changes of obstructive lung disease are present with hyperlucency. There are also increase d interstitial markings with honeycomb pattern around the periphery of the right middle lobe and ling xavier. No worrisome primary lung nodules are identified. No pleural effusion or pneumothorax. HILAR AND MEDIASTINAL STRUCTURES: Enlarged stable precarinal level 4R lymph node, 1.7 x 1.3 cm unchan ged from 11/14/[address] HEART AND VASCULAR STRUCTURES: No aneurysm or dissection. No central pulmonary emboli. No pericardi al effusion. Coronary artery calcification HARDWARE: Right sided central venous catheter has a loop in the junction of the right subclavian and right jugular vein. The tip is in the superior vena cava. This is similar compared to prior chest C T 11/14/2018 UPPER ABDOMEN: Post cholecystectomy BONES, THYROID AND OTHER SOFT TISSUES: Again, a soft tissue mass is present along the anterior right upper 2nd 3rd and 4th ribs with pathologic fracture in the 4th rib. Overall, this soft tissue mass a long the anterior right upper chest wall measures 5.4 x 2.5 cm (was 8 x 5 cm on 11/21/2018). OTHER: No other significant finding. IMPRESSION: Decrease in size of right anterior chest wall mass. TECHNICAL DOCUMENTATION: JOB ID: [id number] Quality ID # [id number]: Final reports with documentation of one or more dose reduction techniques (e.g., Au tomated exposure control, adjustment of the mA and/or kV according to patient size, use of iterative reconstruction technique) 2010 [employer]- All Rights Reserved Reading location - IP/workstation name: [email or web address]
== END ==
LOC: RAD 09:30
PROVIDERS: ATTEND Internal Medicine Medical Oncology
DX: C34.92 Malignant neoplasm of unspecified part of left bronchus or lung (principal)
CPT/HCPCS: 71260; 82565

== ENCOUNTER 2019-07-06 09:44 | Outpatient (CLI) | payer MEDICARE ==
[~2019-07-06 09:44] MED LIST changes: +DEXAMETHASONE 10 MG in NS 50 ML IV PRN; -FENTANYL CITRATE INJ/PF 100 MCG/2 ML AMPUL ONE; -LIDOCAINE 1% INJ-PF (10 MG/ML) 30 ML SDV ONE; -MIDAZOLAM 2 MG/2 ML INJ ONE; +NORMAL SALINE 250 ML @ KVO IV PRN
[2019-07-06 09:58] VITALS: BP 129/60
[2019-07-06] MEDS ORDERED: CYANOCOBALAMIN (VITAMIN B-12) INJ 1000 MCG/1 ML VIAL IM PRN (10:00)
[2019-07-06] MEDS: MAGNESIUM SULFATE 1 GM/D5W 100 ML IV SCH ×2 (10:15→11:18)
[2019-07-06] MEDS ORDERED: PEMBROLIZUMAB 200 MG in NORMAL SALINE 50 ML IV PRN (10:34)
[2019-07-06] MEDS ORDERED: NORMAL SALINE IV PRN (10:36)
[2019-07-06] MEDS ORDERED: CARBOPLATIN IV PRN (10:36)
[2019-07-07] MEDS ORDERED: PALONOSETRON 0.25 MG/5 ML VIAL IV PRN (05:00)
== END 2019-07-06 14:09 | disposition home or self-care (01) ==
LOC: II 09:44 → 5TH 10:32 → II 14:09
PROVIDERS: ATTEND Internal Medicine
PROC: 3E023GC Introduction of Other Therapeutic Substance into Muscle, Percutaneous Approach (ICD-10-PCS; principal; 2019-07-06)
PROC: 3E0430M Introduction of Antineoplastic, Monoclonal Antibody, into Central Vein, Percutaneous Approach (ICD-10-PCS; 2019-07-06)
PROC: 3E04305 Introduction of Other Antineoplastic into Central Vein, Percutaneous Approach (ICD-10-PCS; 2019-07-06)
PROC: 3E0433Z Introduction of Anti-inflammatory into Central Vein, Percutaneous Approach (ICD-10-PCS; 2019-07-06)
PROC: 3E043GC Introduction of Other Therapeutic Substance into Central Vein, Percutaneous Approach (ICD-10-PCS; 2019-07-06)
DX: Z51.11 Encounter for antineoplastic chemotherapy (principal); C34.2 Malignant neoplasm of middle lobe, bronchus or lung; E83.42 Hypomagnesemia; D51.9 Vitamin B12 deficiency anemia, unspecified
CPT/HCPCS: 96413; 96367; 96372; 96375; 96417; J3420; J9045; J3475; J7040; J1100; J1642; J9271; 96366

== ENCOUNTER 2019-07-27 09:39 | Outpatient (CLI) | payer MEDICARE ==
[~2019-07-27 09:39] MED LIST changes: +CARBOPLATIN IV PRN; +NORMAL SALINE IV PRN; +PALONOSETRON 0.25 MG/5 ML VIAL IV PRN; +PEMBROLIZUMAB 200 MG in NORMAL SALINE 50 ML IV PRN; +PEMETREXED DISODIUM IV PRN
[2019-07-27 10:03] VITALS: BP 108/60
== END 2019-07-27 13:22 | disposition home or self-care (01) ==
LOC: II 09:39 → 5TH 09:40 → II 13:22
PROVIDERS: ATTEND Internal Medicine
PROC: 3E0430M Introduction of Antineoplastic, Monoclonal Antibody, into Central Vein, Percutaneous Approach (ICD-10-PCS; principal; 2019-07-27)
PROC: 3E04305 Introduction of Other Antineoplastic into Central Vein, Percutaneous Approach (ICD-10-PCS; 2019-07-27)
PROC: 3E0433Z Introduction of Anti-inflammatory into Central Vein, Percutaneous Approach (ICD-10-PCS; 2019-07-27)
PROC: 3E043GC Introduction of Other Therapeutic Substance into Central Vein, Percutaneous Approach (ICD-10-PCS; 2019-07-27)
DX: Z51.11 Encounter for antineoplastic chemotherapy (principal); C34.2 Malignant neoplasm of middle lobe, bronchus or lung; E83.42 Hypomagnesemia; D51.9 Vitamin B12 deficiency anemia, unspecified; Z90.2 Acquired absence of lung [part of]
CPT/HCPCS: 96413; 96367; 96375; 96417; J9045; J7050; J7040; J1100; J9305; J2469; J9271; J1642

== ENCOUNTER → 2019-08-13 | Outpatient (CLI) | payer MEDICARE ==
--- NOTE | 2019-08-13 12:29 | RADIOLOGY REPORT (SQ) ---
EXAM DESCRIPTION: CT CHEST WITH COMPLETED DATE/TIME: 08/13/2019 10:25 am REASON FOR STUDY: (C34.12)MALIGNANT NEOPLASM OF UPPER LOBE, LEFT BRONCHUS OR LUNG C34.12 MALIGNANT NEOPLASM OF UPPER LOBE, LEFT BRONCHUS OR RADHA COMPARISON: 05/15/2019 TECHNIQUE: CT scan of the chest performed using helical scanning technique with dynamic intravenous contrast injection. Images reviewed with lung, soft tissue and bone windows. Reconstructed coronal and sagittal MPR and MIP images reviewed. All images stored on PACS. All CT scanners at this facility use dose modulation, iterative reconstruction, and/or weight based d osing when appropriate to reduce radiation dose to as low as reasonably achievable (ALARA). [facility]: Dose Right [facility]: CareDose [facility]: Dose Right [facility]: Teradose 4D [facility]: [employer] CONTRAST TYPE AND DOSE: 83 mL Omnipaque 350- low osmolar. RENAL FUNCTION: BUN 7 creatinine 0.8 RADIATION DOSE: . LIMITATIONS: None. FINDINGS: LUNGS AND PLEURA: Pulmonary emphysema is present. There is pleural thickening in the righ t upper anterior chest. There is pleural/parenchymal scarring. Chronic interstitial changes seen wi th peripheral honeycombing in several areas in the lungs. No new pulmonary mass is seen. HILAR AND MEDIASTINAL STRUCTURES: Precarinal node is slightly smaller, measuring 11 mm in short axis. No additional mediastinal or hilar adenopathy is present. HEART AND VASCULAR STRUCTURES: No aneurysm or dissection. No central pulmonary emboli. No pericardi al effusion. HARDWARE: None in the chest. UPPER ABDOMEN: No significant findings. Limited exam. THYROID AND OTHER SOFT TISSUES: There is an anterior chest wall mass that is smaller, measuring 19.4 prior 31.3 mm. There is rib destruction in this area involving 3 ribs. BONES: There is rib destruction in the anterior right ribs with a pathological fracture in 1 of the r ibs. OTHER: No other significant finding. IMPRESSION: The anterior chest wall mass on the right is smaller. There are destructive changes in the adjacent ribs. There is pulmonary emphysema. There are chronic interstitial changes. TECHNICAL DOCUMENTATION: JOB ID: [id number] Quality ID # [id number]: Final reports with documentation of one or more dose reduction techniques (e.g., Au tomated exposure control, adjustment of the mA and/or kV according to patient size, use of iterative reconstruction technique) 2010 [employer]- All Rights Reserved Reading location - IP/workstation name: [email or web address]
--- NOTE | 2019-08-13 13:54 | RADIOLOGY REPORT (SQ) ---
EXAM DESCRIPTION: CT ABD/PELVIS WITH IV ONLY COMPLETED DATE/TIME: 08/13/2019 10:25 am REASON FOR STUDY: (C34.12)MALIGNANT NEOPLASM OF UPPER LOBE, LEFT BRONCHUS OR LUNG C34.12 MALIGNANT NEOPLASM OF UPPER LOBE, LEFT BRONCHUS OR RADHA COMPARISON: 05/15/2019. PET-CT 04/01/2019. TECHNIQUE: CT scan of the abdomen and pelvis performed using helical scanning technique with dynamic intravenous contrast injection. No oral contrast. Images reviewed with lung, soft tissue, and bone windows. Reconstructed coronal and sagittal MPR images reviewed. Delayed images for evaluation of the urinary system also acquired. All images stored on PACS. All CT scanners at this facility use dose modulation, iterative reconstruction, and/or weight based d osing when appropriate to reduce radiation dose to as low as reasonably achievable (ALARA). [facility]: Dose Right [facility]: CareDose [facility]: Dose Right [facility]: Teradose 4D [facility]: [employer] CONTRAST TYPE AND DOSE: contrast/concentration: Isovue 350.00 mg/ml; Total Contrast Delivered: 83.0 ml; Total Saline Delivered: 69.0 ml RENAL FUNCTION: GFR > 60. RADIATION DOSE: CT Rad equipment meets quality standard of care and radiation dose reduction techniq ues were employed. CTDIvol: 4.8 - 5.2 mGy. DLP: 725 mGy-cm.. LIMITATIONS: None. FINDINGS: LOWER CHEST: See separate report of the same date. LIVER: Normal size. No masses. No dilated ducts. SPLEEN: Normal size. No focal lesions. PANCREAS: Atrophy. No masses or ductal dilatation. GALLBLADDER: Surgically absent. ADRENAL GLANDS: No significant masses or asymmetry. RIGHT KIDNEY AND URETER: No solid masses. No significant calcifications. No hydronephrosis or hyd roureter. LEFT KIDNEY AND URETER: No solid masses. No significant calcifications. No hydronephrosis or hydr oureter. AORTA AND VESSELS: No aneurysm. RETROPERITONEUM: No retroperitoneal adenopathy, hemorrhage or masses. BOWEL AND PERITONEAL CAVITY: No masses or inflammatory changes. No free fluid or peritoneal masses. APPENDIX: Not visualized. PELVIS: No mass. No free fluid. Normal bladder. ABDOMINAL WALL: No masses. No hernias. BONES: Nothing acute. OTHER: No other significant finding. IMPRESSION: No evidence of metastatic disease. TECHNICAL DOCUMENTATION: JOB ID: [id number] Quality ID # [id number]: Final reports with documentation of one or more dose reduction techniques (e.g., Au tomated exposure control, adjustment of the mA and/or kV according to patient size, use of iterative reconstruction technique) 2010 [employer]- All Rights Reserved Reading location - IP/workstation name: [email or web address]
== END ==
LOC: RAD 09:37
PROVIDERS: ATTEND Physician Assistant Medical
DX: C34.12 Malignant neoplasm of upper lobe, left bronchus or lung (principal); J98.2 Interstitial emphysema
CPT/HCPCS: 71260; 74177

== ENCOUNTER 2019-09-27 11:32 | Inpatient (IN) | payer MEDICARE ==
[2019-09-27] MEDS ORDERED: IPRATROPIUM/ALBUTEROL 0.5-2.5 MG/3 ML AMPUL NEB ONE (12:01)
[2019-09-27] MEDS ORDERED: NORMAL SALINE 1000 ML 250 ML IV ONE (12:02)
[2019-09-27] MEDS ORDERED: METHYLPREDNISOLONE INJ 125 MG/2 ML SDV IV ONE (12:02)
--- NOTE | 2019-09-27 12:48 | ER Document Report ---
Entered by CHERELLE ATWOOD SCRIBE 09/27/19 1154 Acting as scribe for:TRA MENA MD ED Fall - General Chief Complaint: Fall Injury Stated Complaint: FALL/FEET SWELLING,DIFFICULTY BREATHING Time Seen by Provider: 09/27/19 11:52 Information source: Relative, [facility] Records Notes: This 64 year old male patient with a history of COPD presents to the ED today with complaints of dyspnea and feet swelling after a fall that occurred prior to arrival. Patient's states that she found the patient on the floor and that he was having trouble breathing. also reports a cough. TRAVEL OUTSIDE OF THE [place] IN LAST 30 DAYS: No - Related data Allergies/Adverse Reactions: Penicillins Allergy (Verified 02/01/19 11:44) Past Medical History - General Information source: Relative, [facility] Records - Social History Smoking Status: Current Every Day Smoker Cigarette use (# per day): Yes Chew tobacco use (# tins/day): No Smoking Education Provided: No Frequency of alcohol use: None Drug Abuse: None Lives with: Spouse/Significant other Family History: Reviewed & Not Pertinent - Past Medical History Cardiac Medical History: Reports: Hx Coronary Artery Disease, Hx Heart Attack - x3, most recent 1997, Hx Hypercholesterolemia, Hx Hypertension, Hx Peripheral Vascular Disease Pulmonary Medical History: Reports: Hx Bronchitis, Hx COPD, Hx Pneumonia, Hx Sleep Apnea Neurological Medical History: Reports: Hx Migraine, Hx Seizures - brain injury Renal/ Medical History: Reports: Hx Benign Prostatic Hyperplasia Malignancy Medical History: Reports Hx Lung Cancer Musculoskeletal Medical History: Reports Hx Arthritis Psychiatric Medical History: Reports: Hx Anxiety, Hx Depression Past Surgical History: Reports: Hx Cardiac Catheterization - Stent 2, Hx Cardiac Surgery, Hx Cholecystectomy - Immunizations Immunizations up to date: Yes Hx Diphtheria, Pertussis, Tetanus Vaccination: Yes Hx Pneumococcal Vaccination: 09/20/11 Review of Systems - Review of Systems Constitutional: No symptoms reported EENT: No symptoms reported Cardiovascular: See HPI, Dyspnea Respiratory: See HPI, Cough Gastrointestinal: No symptoms reported Genitourinary: No symptoms reported Male Genitourinary: No symptoms reported Musculoskeletal: See HPI, Other - feet swelling Skin: No symptoms reported Hematologic/Lymphatic: No symptoms reported Neurological/Psychological: No symptoms reported -: Yes All other systems reviewed and negative Physical Exam - Vital signs Vitals: Resp 17 09/27/19 11:52 - General General appearance: Alert - HEENT Head: Normocephalic, Atraumatic Eyes: Normal Pupils: PERRL - Respiratory Respiratory status: Respiratory distress - 99% on NC, Tachypnea Chest status: Nontender Breath sounds: Rhonchi, Wheezing Chest palpation: Normal - Cardiovascular Rhythm: Tachycardia Heart sounds: Normal auscultation Murmur: No - Abdominal Inspection: Normal Distension: No distension Bowel sounds: Normal Tenderness: Nontender Organomegaly: No organomegaly - Back Back: Normal, Nontender - Extremities General upper extremity: Normal inspection General lower extremity: Edema - +1 edema LE, legs are puffy Ankle: Other - ankles are puffy - Neurological Neuro grossly intact: Yes - Psychological Associated symptoms: Normal affect, Normal mood - Skin Skin Temperature: Warm Skin Moisture: Dry Skin Color: Normal Course - Re-evaluation Re-evalutation: 09/27/19 13:45 Venous PCO2 66.9, pulse ox at this time is 95% on 2 L nasal cannula. Patient states his breathing does feel better now than when he came in. He still does seem to breathe a little fast with some mild retractions. Reviewing prior records, there is only one blood gas that was done over 4 years ago and PCO2 was 37 at that time. There are no ABGs or VBG's for comparison to see what his baseline is at this time. - Vital Signs Vital signs: Temp Pulse Resp BP Pulse Ox 98.3 F 22 H 108/53 L 97 09/27/19 17:12 09/27/19 17:10 09/27/19 17:10 09/27/19 17:10 - Laboratory Result Diagrams: 09/27/19 12:37 09/27/19 12:37 Laboratory results interpreted by me: 09/27/19 09/27/19 09/27/19 12:31 12:37 12:37 WBC 10.9 H RBC 3.05 L Hgb 11.3 L Hct 32.5 L MCV 107 H MCH 37.2 H Seg Neuts % (Manual) 87 H Lymphocytes % (Manual) 4 L Abs Neuts (Manual) 9.5 H Abs Lymphs (Manual) 0.4 L VBG pCO2 66.9 H* VBG HCO3 33.4 H Sodium 135.9 L Potassium 3.5 L BUN 6 L Glucose 130 H Calcium 7.7 L Creatine Kinase 236 H NT-Pro-B Natriuret Pep Albumin 3.3 L 09/27/19 12:37 WBC RBC Hgb Hct MCV MCH Seg Neuts % (Manual) Lymphocytes % (Manual) Abs Neuts (Manual) Abs Lymphs (Manual) VBG pCO2 VBG HCO3 Sodium Potassium BUN Glucose Calcium Creatine Kinase NT-Pro-B Natriuret Pep 137 H Albumin - Diagnostic Test Radiology reviewed: Image reviewed, Reports reviewed - Chest x-ray is read as emphysematous changes, prior left lower lobe lobectomy, stable scarring in the lung bases, right apical pleural thickening. There are no superimposed infiltrates. - EKG Interpretation by Oh EKG shows normal: Sinus rhythm, [place], Intervals, QRS Complexes, ST-T Waves Rate: Normal - 89 Rhythm: NSR [place]/QRS: RBBB, LAHB/LAFB When compared to previous EKG there are: No significant change - Consults Dr. Ann Time consulted: 13:50 Consulted provider: will see as inpatient - Requests admission to [facility]. Critical Care Note - Critical Care Note Total time excluding time spent on procedures (mins): 35 Discharge - Discharge Clinical Impression: COPD with acute exacerbation, Hypoxemia requiring supplemental oxygen, CO2 retention Condition: Fair Disposition: ADMITTED INPATIENT Admitting Provider: Seth Unit Admitted: [facility] Scribe Attestation: 09/27/19 12:48 I personally performed the services described in the documentation, reviewed and edited the documentation which was dictated to the scribe in my presence, and it accurately records my words and actions. I personally performed the services described in the documentation, reviewed and edited the documentation which was dictated to the scribe in my presence, and it accurately records my words and actions.
[2019-09-27 12:59] LABS: HEMATOCRIT 32.5 % (37.9-51.0); HEMOGLOBIN 11.3 g/dL (13.5-17.0); MEAN CORPUSCULAR HEMOGLOBIN 37.2 pg (27.0-33.4); MEAN CORPUSCULAR HGB CONC 34.9 g/dL (32.0-36.0); MEAN CORPUSCULAR VOLUME 107 fl (80-97); PLATELET COUNT 232 10^3/uL (150-450); RED BLOOD COUNT 3.05 10^6/uL (4.35-5.55); RED CELL DISTRIBUTION WIDTH 13.5 % (11.5-14.0); WHITE BLOOD COUNT 10.9 10^3/uL (4.0-10.5)
[2019-09-27 13:15] LABS: ALBUMIN 3.3 g/dL (3.5-5.0); ALKALINE PHOSPHATASE 84 U/L (38-126); ANION GAP 8 (5-19); ASPARTATE AMINO TRANSFERASE 25 U/L (17-59); BILIRUBIN,DIRECT 0.2 mg/dL (0.0-0.4); BILIRUBIN,TOTAL 0.3 mg/dL (0.2-1.3); BLOOD UREA NITROGEN 6 mg/dL (7-20); CALCIUM 7.7 mg/dL (8.4-10.2); CARBON DIOXIDE 30 mmol/L (22-30); CHLORIDE 98 mmol/L (98-107); CREATINE KINASE 236 U/L (55-170); GLUCOSE 130 mg/dL (75-110); POTASSIUM 3.5 mmol/L (3.6-5.0); TOTAL PROTEIN 6.4 g/dL (6.3-8.2)
--- NOTE | 2019-09-27 13:24 | RADIOLOGY REPORT (SQ) ---
EXAM DESCRIPTION: CHEST SINGLE VIEW COMPLETED DATE/TIME: 09/27/2019 12:55 pm REASON FOR STUDY: Hypoxic COPD exacerbation COMPARISON: 02/03/2019 EXAM PARAMETERS: NUMBER OF VIEWS: One view. TECHNIQUE: Single frontal radiographic view of the chest acquired. RADIATION DOSE: NA LIMITATIONS: None. FINDINGS: LUNGS AND PLEURA: Emphysematous changes. Prior left lower lobectomy. Stable areas of sca rring in the lung bases. Right apical pleural thickening. No obvious superimposed pneumonia. MEDIASTINUM AND HILAR STRUCTURES: No masses. Contour normal. HEART AND VASCULAR STRUCTURES: Heart normal in size. Normal vasculature. BONES: No acute findings. HARDWARE: None in the chest. OTHER: Unchanged position of right PICC line. IMPRESSION: Stable, chronic changes. TECHNICAL DOCUMENTATION: JOB ID: [id number]- All Rights Reserved Reading location - IP/workstation name: [email or web address]
[2019-09-27 13:26] LABS: TROPONIN I 0.026 ng/mL
[2019-09-27 13:30] LABS: ABSOLUTE LYMPHOCYTES# (MANUAL) 0.4 10^3/uL (0.5-4.7); ABSOLUTE MONOCYTES # (MANUAL) 0.8 10^3/uL (0.1-1.4); BASOPHILS % (MANUAL) 0 % (0-2); EOSINOPHILS % (MANUAL) 2 % (0-6); LYMPHOCYTES % (MANUAL) 4 % (13-45); MONOCYTES % (MANUAL) 7 % (3-13); SEGMENTED NEUTROPHILS % (MAN) 87 % (42-78); TOTAL CELLS COUNTED 100
[2019-09-27 13:31] LABS: PLATELET COMMENT ADEQUATE
[2019-09-27] MEDS ORDERED: ALBUTEROL SULFATE 0.083% NEB 2.5 MG/3 ML AMPUL NEB ONE (13:36)
[2019-09-27 13:38] LABS: VENOUS BLOOD BASE EXCESS 4.8 mmol/L; VENOUS BLOOD HCO3 33.4 mmol/L (20-32); VENOUS BLOOD PH 7.32 (7.30-7.42)
[2019-09-27 13:42] LABS: VENOUS BLOOD PCO2 66.9 mmHg (35-63)
[2019-09-27] MEDS ORDERED: LEVOFLOXACIN 750 MG/D5W RTU 750 MG/150 ML RTUPB IV ONE (14:05)
[2019-09-27 20:30] LABS: PROTHROMBIN TIME 14.2 SEC (11.4-15.4)
[2019-09-27 20:31] LABS: PARTIAL THROMBOPLASTIN TIME 37.1 SEC (23.5-35.8)
[2019-09-27 20:33] LABS: D-DIMER 0.76 ug/mL (0.00-0.50)
[2019-09-27 20:47] LABS: PHOSPHORUS 1.9 mg/dL (2.5-4.5)
[2019-09-27 20:48] LABS: CHOLESTEROL 104.95 mg/dL (0-200); TRIGLYCERIDES 69 mg/dL (<150)
[2019-09-27 20:59] LABS: CREATINE KINASE MB 3.34 ng/mL (<4.55); DIRECT LDL 56 mg/dL (<100)
[2019-09-27] MEDS: ENOXAPARIN SODIUM INJ 40 MG/0.4 ML DISP.SYRIN SUBCUT SCH (21:06)
[2019-09-27] MEDS: NORMAL SALINE 1000 ML 1,000 ML IV PRN (21:06)
[2019-09-27 21:11] LABS: TROPONIN I 0.034 ng/mL
[2019-09-27 21:39] LABS: APPEARANCE,URINE CLEAR; BILIRUBIN,URINE NEGATIVE (NEGATIVE); COLOR,URINE YELLOW; GLUCOSE, URINE NEGATIVE (NEGATIVE); KETONES,URINE NEGATIVE (NEGATIVE); LEUKOCYTE ESTERASE,URINE NEGATIVE (NEGATIVE); NITRITE,URINE NEGATIVE (NEGATIVE); PROTEIN,URINE NEGATIVE (NEGATIVE); URINE SPECIFIC GRAVITY 1.005; UROBILINOGEN,URINE NEGATIVE mg/dL (<2.0)
[2019-09-27] MEDS ORDERED: BUTALB/ACETAMINOPHEN/CAFFEINE 1 TAB EACH PO PRN (22:05)
[2019-09-27] MEDS ORDERED: ALBUTEROL SULFATE HFA (90 MCG/PUFF) 200 PUFF/8.5 GM MDI IH PRN (22:05)
--- NOTE | 2019-09-27 22:08 | RADIOLOGY REPORT (SQ) ---
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 COMPARISON: 05/15/2019 TECHNIQUE: CT angiogram of the chest with IV contrast. 3-D MIP images were obtained in coronal and sagittal reconstructions. This exam was performed according to our departmental dose-optimization program, which includes automated exposure control, adjustment of the mA and/or kV according to patient size and/or use of iterative reconstruction technique. FINDINGS: No filling defects are identified in the pulmonary trunk, main left and right pulmonary arteries, or the segmental branches. The thyroid gland is normal. There are multiple mediastinal lymph nodes, nonspecific. The heart size is normal without pericardial effusion. The thoracic aorta is normal caliber. There is moderate centrilobular and paraseptal emphysema. There are areas of scarring and fibrosis in both lungs, with areas of groundglass opacity in the right middle lobe. Unchanged mass along the right upper lobe with deformity of the right second, third, and fourth anterior ribs. Unchanged appearance of right subclavian line. IMPRESSION: 1. No acute pulmonary embolism. 2. Groundglass opacity in the right middle lobe which represent small airways disease. 3. Unchanged mass along the right upper lobe with deformity of the adjacent right second, third, and fourth anterior ribs.
--- NOTE | 2019-09-27 22:08 | PDOC H&P ---
History of Present Illness Admission Date/PCP: 09/27/19 14:16 AYDEE SAUCEDA MD History of Present Illness: LAKSHMI ALAMO is a 64 year old male,He was brought to the emergency room for evaluation of shortness of breath, lower extremity swelling, questionable loss of consciousness. Patient with recurrent lung cancer ,a recalcitrant smoker, he continues to smoke despite lung cancer on active chemotherapy, patient's said she saw him laying on the floor stuporous, she tried to bring him to our office but it was a long wait so she decided to take him to the office of the oncologist but the treating oncologist was not in the office so she opted for the ER. In the emergency room he was evaluated a chest x-ray was done tested demonstrated emphysema with stable scarring in the lung bases, right apical pleural thickening there was no superimposed infiltrate, the venous blood gas that was done, PCO2 66.9 bicarbonate 33.4. The ED physician felt patient needed to be admitted to the hospital..When I saw him in the emergency room patient was alert, he was not overly in distress I did CT chest angiography it demonstrated multiple mediastinal lymph nodes, nonspecific. The outside is normal without pericardial effusion. The thoracic aorta is normal in caliber, there was moderate centrilobular and paraseptal emphysema. There are areas of scarring and fibrosis in both lungs with areas of groundglass opacities in the right middle lobe. Unchanged mass along the right upper lobe with deformity of the right second, third and fourth anterior ribs Past Medical History Cardiac Medical History: Reports: Coronary Artery Disease, Myocardial Infarction - x3, most recent 1997, Hyperlipidema, Hypertension, Peripheral Vascular Disease Pulmonary Medical History: Reports: Bronchitis, Chronic Obstructive Pulmonary Disease (COPD), Pneumonia, Sleep Apnea Neurological Medical History: Reports: Migraine, Seizures - brain injury Malignancy Medical History: Reports: Lung Cancer Musculoskeltal Medical History: Reports: Arthritis Psychiatric Medical History: Reports: Depression Past Surgical History Past Surgical History: Reports: Cardiac Catheterization - Stent 2, Cho lecystectomy Social History Lives with: Spouse/Significant other Smoking Status: Current Every Day Smoker Frequency of Alcohol Use: None Hx Recreational Drug Use: No Drugs: None Hx Prescription Drug Abuse: No Family History Family History: Reviewed & Not Pertinent Parental Family History Reviewed: Yes Children Family History Reviewed: Yes Sibling(s) Family History Reviewed.: Yes Medication/Allergy Home Medications: Albuterol Sulfate [Proair HFA Inhalation Aerosol 8.5 gm MDI] 2 puff IH Q4HP PRN 02/01/19 Aspirin [Ecotrin 81 mg EC Tablet] 81 mg PO QHS 02/01/19 Butalb/Acetaminophen/Caffeine [Fioricet (50-325-40 mg) Tablet] 1 tab PO Q4HP PRN 02/01/19 Clopidogrel Bisulfate [Plavix 75 mg Tablet] 75 mg PO QHS 02/01/19 Dexlansoprazole [Dexilant 30 mg Capsule] 30 mg PO QHS 02/01/19 Diclofenac Sodium 1 gm TOP QIDP PRN 02/01/19 Duloxetine HCl [Cymbalta] 60 mg PO Q12 02/01/19 Finasteride [Proscar 5 mg Tablet] 5 mg PO QPM 02/01/19 Fluticasone Propionate [Flonase Nasal [place] 50 Mcg/[place] 16 gm] 1 spray NAREB DAILY 02/01/19 Fluticasone/Salmeterol [Advair 250-50 Diskus 14 Dose/Diskus] 1 puff IH Q12 02/01/19 Folic Acid [Folvite 1 mg Tablet] 1 mg PO QHS 02/01/19 Levetiracetam [Keppra 500 mg Tablet] 500 mg PO Q12 02/01/19 Levocetirizine Dihydrochloride [Xyzal] 5 mg PO QPM 02/01/19 Montelukast Sodium [Singulair 10 mg Tablet] 10 mg PO QHS 02/01/19 Olanzapine [Zyprexa] 20 mg PO QHS 02/01/19 Pnv,Calcium 72/Iron/Folic Acid [Pnv Plus Multivit Tab] 1 tab PO QHS 02/01/19 Rosuvastatin Calcium [Crestor 20 mg Tablet] 20 mg PO QHS 02/01/19 Tamsulosin HCl [Flomax 0.4 mg Cap.sr] 0.4 mg PO QPM 02/01/19 Tiotropium [place] [Spiriva Handihaler 5 Cap/Kit (18 Mcg/Cap)] 1 puff IH DAILY 02/01/19 Furosemide [Lasix 20 mg Tablet] 20 mg PO BID 09/27/19 Morphine Sulfate [Morphine Ir 30 mg Tablet] 30 mg PO Q6HP PRN 09/27/19 Magnesium Oxide [Mag-Oxide] 500 mg PO BID 09/28/19 Nitroglycerin [Nitrostat 0.4 mg (1/150 Gr) Tabs 25/Bottle] 1 tab SL Q5MP PRN 09/28/19 Ondansetron [Zofran Odt 4 mg Tablet] 8 mg PO PRN PRN 09/28/19 Prochlorperazine Maleate [Compazine 10 mg Tablet] 1 tab PO Q8 PRN 09/28/19 Trihexyphenidyl HCl [Artane 2 mg Tablet] 2 mg PO TID 09/28/19 Allergies/Adverse Reactions: Penicillins Allergy (Verified 02/01/19 11:44) Review of Systems Constitutional: PRESENT: chills Eyes: ABSENT: visual disturbances Ears: ABSENT: hearing changes Cardiovascular: ABSENT: as per HPI, chest pain, dyspnea on exertion, edema, orthropnea, palpitations, other Respiratory: PRESENT: dyspnea Gastrointestinal: PRESENT: nausea Genitourinary: ABSENT: dysuria, hematuria Musculoskeletal: ABSENT: joint swelling Integumentary: ABSENT: rash, wounds Neurological: PRESENT: dizziness, lack of coordination, numbness, paresthesias Psychiatric: ABSENT: anxiety, depression, homidical ideation, suicidal ideation Endocrine: ABSENT: cold intolerance, heat intolerance, menstrual abnormalities, polydipsia, polyuria Hematologic/Lymphatic: ABSENT: easy bleeding, easy bruising, lymphadenopathy Physical Exam Vital Signs: Temp Pulse Resp BP Pulse Ox 98.3 F 18 119/57 L 93 09/27/19 17:12 09/27/19 21:01 09/27/19 21:01 09/27/19 21:01 Intake & Output 09/26/19 09/27/19 09/28/19 06:59 06:59 06:59 Intake Total 400 Balance 400 Weight 70 kg General appearance: PRESENT: no acute distress Eye exam: PRESENT: PERRLA Ear exam: PRESENT: normal external ear exam Mouth exam: PRESENT: moist, tongue midline Neck exam: PRESENT: full ROM Respiratory exam: PRESENT: wheezes Cardiovascular exam: PRESENT: RRR, +S1, +S2 Pulses: PRESENT: normal dorsalis pedis pul, +2 pedal pulses bilateral Vascular exam: PRESENT: normal capillary refill GI/Abdominal exam: PRESENT: normal bowel sounds, soft Rectal exam: PRESENT: deferred Neurological exam: PRESENT: alert, CN II-XII grossly intact Psychiatric exam: PRESENT: appropriate affect, normal mood Skin exam: PRESENT: dry, intact, warm Results Laboratory Results: 09/27/19 12:37 09/27/19 12:37 09/27/19 09/27/19 09/27/19 12:31 12:37 12:37 WBC 10.9 H RBC 3.05 L Hgb 11.3 L Hct 32.5 L MCV 107 H MCH 37.2 H MCHC 34.9 RDW 13.5 Plt Count 232 Seg Neutrophils % Not Reportable VBG pH 7.32 VBG pCO2 66.9 H* VBG HCO3 33.4 H VBG Base Excess 4.8 Sodium 135.9 L Potassium 3.5 L Chloride 98 Carbon Dioxide 30 Anion Gap 8 BUN 6 L Creatinine 0.58 Est GFR ( Amer) > 60 Glucose 130 H Calcium 7.7 L Phosphorus Magnesium Total Bilirubin 0.3 AST 25 Alkaline Phosphatase 84 Total Protein 6.4 Albumin 3.3 L Triglycerides Cholesterol LDL Cholesterol Direct VLDL Cholesterol HDL Cholesterol Urine Color Urine Appearance Urine pH Ur Specific [place] Urine Protein Urine Glucose (UA) Urine Ketones Urine Blood Urine Nitrite Ur Leukocyte Esterase Urine WBC (Auto) 09/27/19 09/27/19 09/27/19 19:49 19:49 21:14 WBC RBC Hgb Hct MCV MCH MCHC RDW Plt Count Seg Neutrophils % VBG pH VBG pCO2 VBG HCO3 VBG Base Excess Sodium Potassium Chloride Carbon Dioxide Anion Gap BUN Creatinine Est GFR ( Amer) Glucose Calcium Phosphorus 1.9 L Magnesium 2.0 Total Bilirubin AST Alkaline Phosphatase Total Protein Albumin Triglycerides 69 Cholesterol 104.95 LDL Cholesterol Direct 56 VLDL Cholesterol 14.0 HDL Cholesterol 36 L Urine Color YELLOW Urine Appearance CLEAR Urine pH 7.0 Ur Specific [place] 1.005 Urine Protein NEGATIVE Urine Glucose (UA) NEGATIVE Urine Ketones NEGATIVE Urine Blood NEGATIVE Urine Nitrite NEGATIVE Ur Leukocyte Esterase NEGATIVE Urine WBC (Auto) 0 09/27/19 09/27/19 09/27/19 12:37 12:37 19:49 Creatine Kinase 236 H 206 H CK-MB (CK-2) Troponin I 0.026 NT-Pro-B Natriuret Pep 137 H 09/27/19 19:49 Creatine Kinase CK-MB (CK-2) 3.34 Troponin I 0.034 NT-Pro-B Natriuret Pep Impressions: Chest X-Ray 09/27/19 12:00 IMPRESSION: Stable, chronic changes. Assessment & Plan - Diagnosis (1) Mixed acid base balance disorder Is this a current diagnosis for this admission?: Yes Plan: He has permissive hypercapnia with primary respiratory acidosis and compensated metabolic alkalosis, pH is normal, patient is admitted for observation (2) Malignant neoplasm of right lung Qualifiers: Lung location: upper lobe of lung Qualified Code(s): C34.11 - Malignant neoplasm of upper lobe, right bronchus or lung Is this a current diagnosis for this admission?: Yes (3) Emphysema of lung Qualifiers: Emphysema type: centrilobular Qualified Code(s): J43.2 - Centrilobular emphysema Is this a current diagnosis for this admission?: Yes
[2019-09-27] MEDS ORDERED: LEVETIRACETAM 500 MG TABLET PO SCH (22:15)
[2019-09-27] MEDS ORDERED: (PENDING PHARMACY ID) (Dexlansoprazole [Dexilant 30 Mg Capsule] 30 MG) PO SCH (22:15)
[2019-09-27] MEDS ORDERED: LORATADINE 10 MG TABLET PO ONE (22:30)
[2019-09-27] MEDS: DULOXETINE HCL 30 MG CAPSULE.DR PO SCH (22:54)
[2019-09-27] MEDS: MORPHINE SULFATE IR 30 MG TABLET PO PRN (22:54)
[2019-09-27] MEDS: OLANZAPINE 5 MG TABLET PO SCH (22:54)
[2019-09-27] MEDS: LEVETIRACETAM 500 MG TABLET PO SCH (22:55)
[2019-09-27] MEDS ORDERED: ASPIRIN 81 MG TABLET, ENT COATED PO ONE (23:00)
[2019-09-27] MEDS ORDERED: TAMSULOSIN HCL 0.4 MG CAP.SR.24H PO ONE (23:00)
[2019-09-28] MEDS ORDERED: LORATADINE 10 MG TABLET PO ONE (01:30)
[2019-09-28 01:31] LABS: CREATINE KINASE MB 2.94 ng/mL (<4.55); TROPONIN I 0.035 ng/mL
[2019-09-28] MEDS ORDERED: TAMSULOSIN HCL 0.4 MG CAP.SR.24H PO ONE (02:00)
[2019-09-28] MEDS ORDERED: ASPIRIN 81 MG TABLET, ENT COATED PO ONE (02:00)
[2019-09-28 06:55] LABS: ARTERIAL BLOOD BASE EXCESS 3.3 mmol/L; ARTERIAL BLOOD H2CO3 1.44 mmol/L (1.05-1.35); ARTERIAL BLOOD HCO3 28.7 mmol/L (20-24); ARTERIAL BLOOD O2 SATURATION 96.7 % (94-98); ARTERIAL BLOOD PO2 89.1 mmHg (80-100); ARTERIAL BLOOD TOTAL CO2 30.2 mmol/L (23-27)
[2019-09-28 06:56] LABS: ARTERIAL BLOOD FIO2 3L
[2019-09-28 07:26] LABS: HEMATOCRIT 29.6 % (37.9-51.0); HEMOGLOBIN 10.1 g/dL (13.5-17.0); MEAN CORPUSCULAR HEMOGLOBIN 36.4 pg (27.0-33.4); MEAN CORPUSCULAR HGB CONC 34.3 g/dL (32.0-36.0); MEAN CORPUSCULAR VOLUME 106 fl (80-97); PLATELET COUNT 217 10^3/uL (150-450); RED BLOOD COUNT 2.79 10^6/uL (4.35-5.55); RED CELL DISTRIBUTION WIDTH 13.8 % (11.5-14.0); WHITE BLOOD COUNT 8.9 10^3/uL (4.0-10.5)
[2019-09-28 07:39] LABS: ANION GAP 8 (5-19); BLOOD UREA NITROGEN 8 mg/dL (7-20); CALCIUM 7.5 mg/dL (8.4-10.2); CARBON DIOXIDE 29 mmol/L (22-30); CHLORIDE 102 mmol/L (98-107); GLUCOSE 107 mg/dL (75-110); POTASSIUM 3.8 mmol/L (3.6-5.0)
[2019-09-28 07:50] LABS: CREATINE KINASE MB 2.92 ng/mL (<4.55); TROPONIN I 0.067 ng/mL
[2019-09-28] MEDS: MORPHINE SULFATE IR 30 MG TABLET PO PRN ×3 (08:54→21:33)
[2019-09-28] MEDS: IPRATROPIUM/ALBUTEROL 0.5-2.5 MG/3 ML AMPUL NEB PRN ×2 (08:57→12:30)
[2019-09-28] MEDS: FLUTICASONE/VILANTEROL 200-25 MCG/DOSE IH SCH (10:48)
[2019-09-28] MEDS: UMECLIDINIUM BROMIDE 62.5 MCG/DOSE IH SCH (10:48)
[2019-09-28] MEDS: LEVETIRACETAM 500 MG TABLET PO SCH ×2 (10:49→21:33)
[2019-09-28] MEDS: FOLIC ACID 1 MG TABLET PO SCH (10:49)
[2019-09-28] MEDS: MONTELUKAST SODIUM 10 MG TABLET PO SCH (10:49)
[2019-09-28] MEDS: PANTOPRAZOLE SODIUM 20 MG TABLET.DR PO SCH (10:49)
[2019-09-28] MEDS: DULOXETINE HCL 30 MG CAPSULE.DR PO SCH ×2 (10:49→21:32)
[2019-09-28] MEDS: PRENATAL VITAMIN W DHA CAPSULE PO SCH (10:49)
[2019-09-28] MEDS: ENOXAPARIN SODIUM INJ 40 MG/0.4 ML DISP.SYRIN SUBCUT SCH (10:49)
[2019-09-28] MEDS: ASPIRIN 81 MG TABLET, ENT COATED PO SCH (10:49)
[2019-09-28] MEDS: FINASTERIDE 5 MG TABLET PO SCH (10:49)
[2019-09-28] MEDS: NORMAL SALINE 1000 ML 1,000 ML IV PRN ×2 (10:50→22:34)
[2019-09-28] MEDS: LEVOFLOXACIN 750 MG/D5W RTU 750 MG/150 ML RTUPB IV SCH (10:50)
--- NOTE | 2019-09-28 17:05 | EKG REPORT ---
SEVERITY:- ABNORMAL ECG - SINUS RHYTHM RBBB AND LAFB : Confirmed by: Richie Duong 28-Sep-2019 17:04:20
[2019-09-28] MEDS: TAMSULOSIN HCL 0.4 MG CAP.SR.24H PO SCH (17:31)
[2019-09-28] MEDS: LORATADINE 10 MG TABLET PO SCH (17:31)
[2019-09-28] MEDS: OLANZAPINE 5 MG TABLET PO SCH (21:33)
--- NOTE | 2019-09-28 22:50 | PDOC PROGRESS REPORT ---
Subjective Progress Note for:: 09/28/19 Subjective:: Patient seen by the bedside empirically on IV antibiotic for bronchitis, IV fluid for dehydration Reason For Visit: COPD,LUNG CA, ? PNEUMONIA Physical Exam Vital Signs: Temp Pulse Resp BP Pulse Ox 98.0 F 101 H 15 104/46 L 94 09/28/19 19:36 09/28/19 20:00 09/28/19 19:36 09/28/19 19:36 09/28/19 19:36 Intake & Output 09/27/19 09/28/19 09/29/19 06:59 06:59 06:59 Intake Total 640 3606 Output Total 0 950 Balance 640 2656 Weight 71.6 kg General appearance: PRESENT: no acute distress Eye exam: PRESENT: PERRLA Respiratory exam: PRESENT: clear to auscultation todd Cardiovascular exam: PRESENT: +S1, +S2 GI/Abdominal exam: PRESENT: soft Results Laboratory Results: 09/28/19 07:01 09/28/19 07:01 09/28/19 09/28/19 09/28/19 06:40 07:01 07:01 WBC 8.9 RBC 2.79 L Hgb 10.1 L Hct 29.6 L MCV 106 H MCH 36.4 H MCHC 34.3 RDW 13.8 Plt Count 217 Carbonic Acid 1.44 H HCO3/H2CO3 Ratio 19:1 ABG pH 7.40 ABG pCO2 48.0 H ABG pO2 89.1 ABG HCO3 28.7 H ABG O2 Saturation 96.7 ABG Base Excess 3.3 FiO2 3L Sodium 138.6 Potassium 3.8 Chloride 102 Carbon Dioxide 29 Anion Gap 8 BUN 8 Creatinine 0.60 Est GFR ( Amer) > 60 Glucose 107 Calcium 7.5 L TSH 09/28/19 07:01 WBC RBC Hgb Hct MCV MCH MCHC RDW Plt Count Carbonic Acid HCO3/H2CO3 Ratio ABG pH ABG pCO2 ABG pO2 ABG HCO3 ABG O2 Saturation ABG Base Excess FiO2 Sodium Potassium Chloride Carbon Dioxide Anion Gap BUN Creatinine Est GFR ( Amer) Glucose Calcium TSH 0.15 L 09/27/19 09/27/19 09/27/19 12:37 12:37 19:49 Creatine Kinase 236 H 206 H CK-MB (CK-2) Troponin I 0.026 NT-Pro-B Natriuret Pep 137 H 09/27/19 09/28/19 09/28/19 19:49 00:50 00:50 Creatine Kinase 171 H CK-MB (CK-2) 3.34 2.94 Troponin I 0.034 0.035 NT-Pro-B Natriuret Pep 09/28/19 09/28/19 07:01 07:01 Creatine Kinase 180 H CK-MB (CK-2) 2.92 Troponin I 0.067 NT-Pro-B Natriuret Pep Impressions: Chest/Abdomen CTA 09/27/19 00:00 IMPRESSION: 1. No acute pulmonary embolism. 2. Groundglass opacity in the right middle lobe which represent small airways disease. 3. Unchanged mass along the right upper lobe with deformity of the adjacent right second, third, and fourth anterior ribs. Chest X-Ray 09/27/19 12:00 IMPRESSION: Stable, chronic changes. Assessment & Plan - Diagnosis (1) Mixed acid base balance disorder Is this a current diagnosis for this admission?: Yes (2) Malignant neoplasm of right lung Qualifiers: Lung location: upper lobe of lung Qualified Code(s): C34.11 - Malignant neoplasm of upper lobe, right bronchus or lung Is this a current diagnosis for this admission?: Yes (3) Emphysema of lung Qualifiers: Emphysema type: centrilobular Qualified Code(s): J43.2 - Centrilobular emphysema Is this a current diagnosis for this admission?: Yes - Time Time Spent with patient: 35 or more minutes
[2019-09-29] MEDS: IPRATROPIUM/ALBUTEROL 0.5-2.5 MG/3 ML AMPUL NEB PRN ×2 (03:12→08:35)
[2019-09-29] MEDS: MORPHINE SULFATE IR 30 MG TABLET PO PRN ×4 (03:33→21:14)
[2019-09-29] MEDS: NORMAL SALINE 1000 ML 1,000 ML IV PRN ×2 (08:30→22:19)
[2019-09-29] MEDS: FOLIC ACID 1 MG TABLET PO SCH (09:38)
[2019-09-29] MEDS: DULOXETINE HCL 30 MG CAPSULE.DR PO SCH ×2 (09:38→21:11)
[2019-09-29] MEDS: PRENATAL VITAMIN W DHA CAPSULE PO SCH (09:38)
[2019-09-29] MEDS: MONTELUKAST SODIUM 10 MG TABLET PO SCH (09:38)
[2019-09-29] MEDS: FINASTERIDE 5 MG TABLET PO SCH (09:39)
[2019-09-29] MEDS: LEVETIRACETAM 500 MG TABLET PO SCH ×2 (09:39→21:10)
[2019-09-29] MEDS: ASPIRIN 81 MG TABLET, ENT COATED PO SCH (09:39)
[2019-09-29] MEDS: LEVOFLOXACIN 750 MG/D5W RTU 750 MG/150 ML RTUPB IV SCH (09:39)
[2019-09-29] MEDS: PANTOPRAZOLE SODIUM 20 MG TABLET.DR PO SCH (09:39)
[2019-09-29] MEDS: ENOXAPARIN SODIUM INJ 40 MG/0.4 ML DISP.SYRIN SUBCUT SCH (09:41)
[2019-09-29] MEDS: UMECLIDINIUM BROMIDE 62.5 MCG/DOSE IH SCH (09:44)
[2019-09-29] MEDS: FLUTICASONE/VILANTEROL 200-25 MCG/DOSE IH SCH (09:45)
[2019-09-29] MEDS: IPRATROPIUM/ALBUTEROL 0.5-2.5 MG/3 ML AMPUL NEB SCH ×2 (14:58→20:42)
--- NOTE | 2019-09-29 15:02 | PDOC PROGRESS REPORT ---
Subjective Progress Note for:: 09/29/19 Subjective:: Patient was seen by the bedside, he has history of lung cancer, he was initially admitted for observation, the plan was for him to be discharged home today, on auscultation of his chest he has diffuse wheeze on both lung field, he has underlining COPD. He has multiple complaints including anorexia, decreased appetite. Reason For Visit: COPD,LUNG CA, ? PNEUMONIA Physical Exam Vital Signs: Temp Pulse Resp BP Pulse Ox 97.6 F 92 16 115/59 L 95 09/29/19 11:33 09/29/19 11:33 09/29/19 11:33 09/29/19 11:33 09/29/19 11:33 Intake & Output 09/28/19 09/29/19 09/30/19 06:59 06:59 06:59 Intake Total 640 3606 1143 Output Total 0 3175 Balance 158 329 2998 Weight 71.6 kg 71.7 kg General appearance: PRESENT: mild distress Eye exam: PRESENT: PERRLA Respiratory exam: PRESENT: wheezes Cardiovascular exam: PRESENT: +S1, +S2 GI/Abdominal exam: PRESENT: soft Neurological exam: PRESENT: alert Results Laboratory Results: 09/28/19 07:01 09/28/19 07:01 09/27/19 09/27/19 09/27/19 12:37 12:37 19:49 Creatine Kinase 236 H 206 H CK-MB (CK-2) Troponin I 0.026 NT-Pro-B Natriuret Pep 137 H 09/27/19 09/28/19 09/28/19 19:49 00:50 00:50 Creatine Kinase 171 H CK-MB (CK-2) 3.34 2.94 Troponin I 0.034 0.035 NT-Pro-B Natriuret Pep 09/28/19 09/28/19 07:01 07:01 Creatine Kinase 180 H CK-MB (CK-2) 2.92 Troponin I 0.067 NT-Pro-B Natriuret Pep Impressions: Chest/Abdomen CTA 09/27/19 00:00 IMPRESSION: 1. No acute pulmonary embolism. 2. Groundglass opacity in the right middle lobe which represent small airways disease. 3. Unchanged mass along the right upper lobe with deformity of the adjacent right second, third, and fourth anterior ribs. Chest X-Ray 09/27/19 12:00 IMPRESSION: Stable, chronic changes. Assessment & Plan - Diagnosis (1) Mixed acid base balance disorder Is this a current diagnosis for this admission?: Yes (2) Malignant neoplasm of right lung Qualifiers: Lung location: upper lobe of lung Qualified Code(s): C34.11 - Malignant neoplasm of upper lobe, right bronchus or lung Is this a current diagnosis for this admission?: Yes (3) Emphysema of lung Qualifiers: Emphysema type: centrilobular Qualified Code(s): J43.2 - Centrilobular emphysema Is this a current diagnosis for this admission?: Yes (4) Acute exacerbation of chronic obstructive pulmonary disease (COPD) Is this a current diagnosis for this admission?: Yes Plan: He has acute exacerbation of chronic obstructive pulmonary disease, start intravenous Solu-Medrol, scheduled bronchodilators DuoNeb every 6 hours with as needed DuoNeb every 4 hours (5) Anorexia Is this a current diagnosis for this admission?: Yes Plan: Start Megace for appetite stimulation - Time Time Spent with patient: 35 or more minutes Level of Care: IMCU - The plan of care discussed with spouse, patient with lung cancer, continue to smoke overall prognosis is very poor
[2019-09-29] MEDS: METHYLPREDNISOLONE INJ 125 MG/2 ML SDV IV SCH ×2 (15:32→21:12)
[2019-09-29] MEDS: MEGESTROL ACETATE 20 MG TABLET PO SCH (17:41)
[2019-09-29] MEDS: TAMSULOSIN HCL 0.4 MG CAP.SR.24H PO SCH (17:41)
[2019-09-29] MEDS: LORATADINE 10 MG TABLET PO SCH (17:42)
[2019-09-29] MEDS ORDERED: FUROSEMIDE 20 MG TABLET PO ONE (19:45)
[2019-09-29] MEDS: OLANZAPINE 5 MG TABLET PO SCH (21:11)
[2019-09-30] MEDS: IPRATROPIUM/ALBUTEROL 0.5-2.5 MG/3 ML AMPUL NEB SCH ×4 (02:19→20:20)
[2019-09-30] MEDS: MORPHINE SULFATE IR 30 MG TABLET PO PRN ×3 (04:51→18:58)
[2019-09-30] MEDS: METHYLPREDNISOLONE INJ 125 MG/2 ML SDV IV SCH ×3 (05:24→21:14)
[2019-09-30] MEDS: NORMAL SALINE 1000 ML 1,000 ML IV PRN ×2 (08:53→18:56)
[2019-09-30] MEDS: ASPIRIN 81 MG TABLET, ENT COATED PO SCH (09:50)
[2019-09-30] MEDS: FUROSEMIDE 20 MG TABLET PO SCH ×2 (09:50→17:17)
[2019-09-30] MEDS: PANTOPRAZOLE SODIUM 20 MG TABLET.DR PO SCH (09:50)
[2019-09-30] MEDS: FOLIC ACID 1 MG TABLET PO SCH (09:51)
[2019-09-30] MEDS: LEVETIRACETAM 500 MG TABLET PO SCH ×2 (09:51→21:14)
[2019-09-30] MEDS: UMECLIDINIUM BROMIDE 62.5 MCG/DOSE IH SCH (09:51)
[2019-09-30] MEDS: PRENATAL VITAMIN W DHA CAPSULE PO SCH (09:51)
[2019-09-30] MEDS: MONTELUKAST SODIUM 10 MG TABLET PO SCH (09:51)
[2019-09-30] MEDS: FINASTERIDE 5 MG TABLET PO SCH (09:51)
[2019-09-30] MEDS: DULOXETINE HCL 30 MG CAPSULE.DR PO SCH ×2 (09:51→21:14)
[2019-09-30] MEDS: FLUTICASONE/VILANTEROL 200-25 MCG/DOSE IH SCH (09:51)
[2019-09-30] MEDS: LEVOFLOXACIN 750 MG/D5W RTU 750 MG/150 ML RTUPB IV SCH (09:52)
[2019-09-30] MEDS: ENOXAPARIN SODIUM INJ 40 MG/0.4 ML DISP.SYRIN SUBCUT SCH (09:53)
[2019-09-30] MEDS: MEGESTROL ACETATE 20 MG TABLET PO SCH (09:56)
--- NOTE | 2019-09-30 15:23 | PDOC PROGRESS REPORT ---
Subjective Progress Note for:: 09/30/19 Subjective:: Patient was started on intravenous Solu-Medrol yesterday, he seems to be responding to treatment, complain of constipation Reason For Visit: COPD EXACERBATION Physical Exam Vital Signs: Temp Pulse Resp BP Pulse Ox 98.0 F 120 H 18 133/56 H 90 L 09/30/19 11:37 09/30/19 14:16 09/30/19 14:16 09/30/19 11:37 09/30/19 14:16 Intake & Output 09/29/19 09/30/19 10/01/19 06:59 06:59 06:59 Intake Total 3606 2963 1150 Output Total 3175 4575 Balance 431 -1612 1150 Weight 71.7 kg 72.3 kg General appearance: PRESENT: no acute distress Eye exam: PRESENT: PERRLA Respiratory exam: PRESENT: clear to auscultation todd Cardiovascular exam: PRESENT: +S1, +S2 GI/Abdominal exam: PRESENT: soft Neurological exam: PRESENT: alert, CN II-XII grossly intact Results Laboratory Results: 09/28/19 07:01 09/28/19 07:01 09/27/19 09/27/19 09/27/19 12:37 12:37 19:49 Creatine Kinase 236 H 206 H CK-MB (CK-2) Troponin I 0.026 NT-Pro-B Natriuret Pep 137 H 09/27/19 09/28/19 09/28/19 19:49 00:50 00:50 Creatine Kinase 171 H CK-MB (CK-2) 3.34 2.94 Troponin I 0.034 0.035 NT-Pro-B Natriuret Pep 09/28/19 09/28/19 07:01 07:01 Creatine Kinase 180 H CK-MB (CK-2) 2.92 Troponin I 0.067 NT-Pro-B Natriuret Pep Impressions: Chest/Abdomen CTA 09/27/19 00:00 IMPRESSION: 1. No acute pulmonary embolism. 2. Groundglass opacity in the right middle lobe which represent small airways disease. 3. Unchanged mass along the right upper lobe with deformity of the adjacent right second, third, and fourth anterior ribs. Chest X-Ray 09/27/19 12:00 IMPRESSION: Stable, chronic changes. Assessment & Plan - Diagnosis (1) Mixed acid base balance disorder Is this a current diagnosis for this admission?: Yes (2) Malignant neoplasm of right lung Qualifiers: Lung location: upper lobe of lung Qualified Code(s): C34.11 - Malignant neoplasm of upper lobe, right bronchus or lung Is this a current diagnosis for this admission?: Yes (3) Emphysema of lung Qualifiers: Emphysema type: centrilobular Qualified Code(s): J43.2 - Centrilobular emphysema Is this a current diagnosis for this admission?: Yes (4) Acute exacerbation of chronic obstructive pulmonary disease (COPD) Is this a current diagnosis for this admission?: Yes Plan: Continue IV Solu-Medrol, bronchodilators, antibiotic (5) Anorexia Is this a current diagnosis for this admission?: Yes - Time Time Spent with patient: 25-34 minutes
[2019-09-30] MEDS: POLYETHYLENE GLYCOL 3350 POWDER 17 GM/1 PACKET PO SCH (15:45)
[2019-09-30] MEDS: LORATADINE 10 MG TABLET PO SCH (17:17)
[2019-09-30] MEDS: TAMSULOSIN HCL 0.4 MG CAP.SR.24H PO SCH (17:17)
[2019-09-30] MEDS: IPRATROPIUM/ALBUTEROL 0.5-2.5 MG/3 ML AMPUL NEB PRN (17:44)
[2019-09-30] MEDS: OLANZAPINE 5 MG TABLET PO SCH (21:14)
[2019-10-01] MEDS: MORPHINE SULFATE IR 30 MG TABLET PO PRN ×3 (03:29→17:04)
[2019-10-01] MEDS: NORMAL SALINE 1000 ML 1,000 ML IV PRN ×2 (05:14→18:13)
[2019-10-01] MEDS: METHYLPREDNISOLONE INJ 125 MG/2 ML SDV IV SCH ×3 (05:24→21:55)
[2019-10-01] MEDS: POLYETHYLENE GLYCOL 3350 POWDER 17 GM/1 PACKET PO SCH (10:06)
[2019-10-01] MEDS: LEVETIRACETAM 500 MG TABLET PO SCH ×2 (10:08→21:56)
[2019-10-01] MEDS: ASPIRIN 81 MG TABLET, ENT COATED PO SCH (10:08)
[2019-10-01] MEDS: FINASTERIDE 5 MG TABLET PO SCH (10:08)
[2019-10-01] MEDS: MEGESTROL ACETATE 20 MG TABLET PO SCH (10:08)
[2019-10-01] MEDS: MONTELUKAST SODIUM 10 MG TABLET PO SCH (10:08)
[2019-10-01] MEDS: DULOXETINE HCL 30 MG CAPSULE.DR PO SCH ×2 (10:08→21:55)
[2019-10-01] MEDS: PRENATAL VITAMIN W DHA CAPSULE PO SCH (10:08)
[2019-10-01] MEDS: FOLIC ACID 1 MG TABLET PO SCH (10:08)
[2019-10-01] MEDS: PANTOPRAZOLE SODIUM 20 MG TABLET.DR PO SCH (10:08)
[2019-10-01] MEDS: ENOXAPARIN SODIUM INJ 40 MG/0.4 ML DISP.SYRIN SUBCUT SCH (10:09)
[2019-10-01] MEDS: FUROSEMIDE 20 MG TABLET PO SCH ×2 (10:09→17:04)
[2019-10-01] MEDS: UMECLIDINIUM BROMIDE 62.5 MCG/DOSE IH SCH (10:11)
[2019-10-01] MEDS: FLUTICASONE/VILANTEROL 200-25 MCG/DOSE IH SCH (10:11)
[2019-10-01] MEDS: LEVOFLOXACIN 750 MG/D5W RTU 750 MG/150 ML RTUPB IV SCH (10:12)
[2019-10-01] MEDS: LORATADINE 10 MG TABLET PO SCH (17:04)
[2019-10-01] MEDS: TAMSULOSIN HCL 0.4 MG CAP.SR.24H PO SCH (17:04)
--- NOTE | 2019-10-01 20:19 | PDOC DISCHARGE SUMMARY ---
Impression - Admit/DC Date/PCP Admission Date/Primary Care Provider: 09/30/19 11:15 AYDEE SAUCEDA MD Discharge Date: 10/01/19 - Discharge Diagnosis (1) Mixed acid base balance disorder Is this a current diagnosis for this admission?: Yes (2) Malignant neoplasm of right lung Is this a current diagnosis for this admission?: Yes (3) Emphysema of lung Is this a current diagnosis for this admission?: Yes (4) Acute exacerbation of chronic obstructive pulmonary disease (COPD) Is this a current diagnosis for this admission?: Yes (5) Anorexia Is this a current diagnosis for this admission?: Yes - Additional Information Referrals: AYDEE SAUCEDA MD [Primary Care Provider] - 10/16/19 2:30 pm Prescriptions: Prednisone [Deltasone 20 mg Tablet] 40 mg PO DAILY #5 tablet Megestrol Acetate [Megace 20 mg Tablet] 80 mg PO DAILY #90 tablet Home Medications: Albuterol Sulfate [Proair HFA Inhalation Aerosol 8.5 gm MDI] 2 puff IH Q4HP PRN 02/01/19 Aspirin [Ecotrin 81 mg EC Tablet] 81 mg PO QHS 02/01/19 Butalb/Acetaminophen/Caffeine [Fioricet (50-325-40 mg) Tablet] 1 tab PO Q4HP PRN 02/01/19 Clopidogrel Bisulfate [Plavix 75 mg Tablet] 75 mg PO QHS 02/01/19 Dexlansoprazole [Dexilant 30 mg Capsule] 30 mg PO QHS 02/01/19 Diclofenac Sodium 1 gm TOP QIDP PRN 02/01/19 Duloxetine HCl [Cymbalta] 60 mg PO Q12 02/01/19 Finasteride [Proscar 5 mg Tablet] 5 mg PO QPM 02/01/19 Fluticasone Propionate [Flonase Nasal [place] 50 Mcg/[place] 16 gm] 1 spray NAREB DAILY 02/01/19 Fluticasone/Salmeterol [Advair 250-50 Diskus 14 Dose/Diskus] 1 puff IH Q12 02/01/19 Folic Acid [Folvite 1 mg Tablet] 1 mg PO QHS 02/01/19 Levetiracetam [Keppra 500 mg Tablet] 500 mg PO Q12 02/01/19 Levocetirizine Dihydrochloride [Xyzal] 5 mg PO QPM 02/01/19 Montelukast Sodium [Singulair 10 mg Tablet] 10 mg PO QHS 02/01/19 Olanzapine [Zyprexa] 20 mg PO QHS 02/01/19 Pnv,Calcium 72/Iron/Folic Acid [Pnv Plus Multivit Tab] 1 tab PO QHS 02/01/19 Rosuvastatin Calcium [Crestor 20 mg Tablet] 20 mg PO QHS 02/01/19 Tamsulosin HCl [Flomax 0.4 mg Cap.sr] 0.4 mg PO QPM 02/01/19 Tiotropium [place] [Spiriva [place] 5 Cap/Kit (18 Mcg/Cap)] 1 puff IH DAILY 02/01/19 Furosemide [Lasix 20 mg Tablet] 20 mg PO BID 09/27/19 Morphine Sulfate [Morphine Ir 30 mg Tablet] 30 mg PO Q6HP PRN 09/27/19 Magnesium Oxide [Mag-Oxide] 500 mg PO BID 09/28/19 Nitroglycerin [Nitrostat 0.4 mg (1/150 Gr) Tabs 25/Bottle] 1 tab SL Q5MP PRN 09/28/19 Ondansetron [Zofran Odt 4 mg Tablet] 8 mg PO PRN PRN 09/28/19 Prochlorperazine Maleate [Compazine 10 mg Tablet] 1 tab PO Q8 PRN 09/28/19 Trihexyphenidyl HCl [Artane 2 mg Tablet] 2 mg PO TID 09/28/19 Megestrol Acetate [Megace 20 mg Tablet] 80 mg PO DAILY #90 tablet 10/01/19 Prednisone [Deltasone 20 mg Tablet] 40 mg PO DAILY #5 tablet 10/01/19 History of Present Illiness History of Present Illness: LAKSHMI ALAMO is a 64 year old male,He was brought to the emergency room for e valuation of shortness of breath, lower extremity swelling, questionable loss of consciousness. Patient with recurrent lung cancer ,a recalcitrant smoker, he continues to smoke despite lung cancer on active chemotherapy, patient's said she saw him laying on the floor stuporous, she tried to bring him to our office but it was a long wait so she decided to take him to the office of the oncologist but the treating oncologist was not in the office so she opted for the ER. In the emergency room he was evaluated a chest x-ray was done tested demonstrated emphysema with stable scarring in the lung bases, right apical pleural thickening there was no superimposed infiltrate, the venous blood gas that was done, PCO2 66.9 bicarbonate 33.4. The ED physician felt patient needed to be admitted to the hospital..When I saw him in the emergency room patient was alert, he was not overly in distress I did CT chest angiography it demonstrated multiple mediastinal lymph nodes, nonspecific. The outside is normal without pericardial effusion. The thoracic aorta is normal in caliber, there was moderate centrilobular and paraseptal emphysema. There are areas of scarring and fibrosis in both lungs with areas of groundglass opacities in the right middle lobe. Unchanged mass along the right upper lobe with deformity of the right second, third and fourth anterior ribs Hospital Course Hospital Course: Patient was admitted for evaluation of shortness of breath, he had episode of overt audible wheezing, he was treated with intravenous Solu-Medrol, bro nchodilators, IV antibiotic. He has underlining COPD and lung cancer he continues to smoke despite lung cancer and COPD. Patient overall prognosis is very poor, he has loss of appetite he was given appetite stimulant, Megace Physical Exam Vital Signs: Temp Pulse Resp BP Pulse Ox 98.5 F 102 H 16 134/58 H 92 10/01/19 15:21 10/01/19 15:21 10/01/19 15:21 10/01/19 15:21 10/01/19 15:21 Intake & Output 09/30/19 10/01/19 10/02/19 06:59 06:59 06:59 Intake Total 2963 4500 3250 Output Total 4575 3125 750 Balance -1612 1375 2500 Weight 72.3 kg 71.5 kg General appearance: PRESENT: no acute distress Eye exam: PRESENT: PERRLA Respiratory exam: PRESENT: clear to auscultation todd Cardiovascular exam: PRESENT: +S1, +S2 GI/Abdominal exam: PRESENT: soft Neurological exam: PRESENT: alert, CN II-XII grossly intact Results Laboratory Results: WBC 8.9 10^3/uL (4.0-10.5) 09/28/19 07:01 RBC 2.79 10^6/uL (4.35-5.55) L 09/28/19 07:01 Hgb 10.1 g/dL (13.5-17.0) L 09/28/19 07:01 Hct 29.6 % (37.9-51.0) L 09/28/19 07:01 MCV 106 fl (80-97) H 09/28/19 07:01 MCH 36.4 pg (27.0-33.4) H 09/28/19 07:01 MCHC 34.3 g/dL (32.0-36.0) 09/28/19 07:01 RDW 13.8 % (11.5-14.0) 09/28/19 07:01 Plt Count 217 10^3/uL (150-450) 09/28/19 07:01 Lymph % (Auto) Not Reportable 09/27/19 12:37 [place] % (Auto) Not Reportable 09/27/19 12:37 Eos % (Auto) Not Reportable 09/27/19 12:37 Baso % (Auto) Not Reportable 09/27/19 12:37 Absolute Neuts (auto) Not Reportable 09/27/19 12:37 Absolute Lymphs (auto) Not Reportable 09/27/19 12:37 Absolute Monos (auto) Not Reportable 09/27/19 12:37 Absolute Eos (auto) Not Reportable 09/27/19 12:37 Absolute Basos (auto) Not Reportable 09/27/19 12:37 Total Counted 100 09/27/19 12:37 Seg Neutrophils % Not Reportable 09/27/19 12:37 Seg Neuts % (Manual) 87 % (42-78) H 09/27/19 12:37 Lymphocytes % (Manual) 4 % (13-45) L 09/27/19 12:37 Monocytes % (Manual) 7 % (3-13) 09/27/19 12:37 Eosinophils % (Manual) 2 % (0-6) 09/27/19 12:37 Basophils % (Manual) 0 % (0-2) 09/27/19 12:37 Abs Neuts (Manual) 9.5 10^3/uL (1.7-8.2) H 09/27/19 12:37 Abs Lymphs (Manual) 0.4 10^3/uL (0.5-4.7) L 09/27/19 12:37 Abs Monocytes (Manual) 0.8 10^3/uL (0.1-1.4) 09/27/19 12:37 Absolute Eos (Manual) 0.2 10^3/uL (0.0-0.6) 09/27/19 12:37 Abs Basophils (Manual) 0.0 10^3/uL (0.0-0.2) 09/27/19 12:37 Platelet Comment ADEQUATE 09/27/19 12:37 Macrocytosis 2+ 09/27/19 12:37 PT 14.2 SEC (11.4-15.4) 09/27/19 19:49 INR 1.10 09/27/19 19:49 APTT 37.1 SEC (23.5-35.8) H 09/27/19 19:49 D-Dimer 0.76 ug/mL (0.00-0.50) H 09/27/19 19:49 Carbonic Acid 1.44 mmol/L (1.05-1.35) H 09/28/19 06:40 HCO3/H2CO3 Ratio 19:1 09/28/19 06:40 ABG pH 7.40 (7.35-7.45) 09/28/19 06:40 ABG pCO2 48.0 mmHg (35-45) H 09/28/19 06:40 ABG pO2 89.1 mmHg (80-100) 09/28/19 06:40 ABG HCO3 28.7 mmol/L (20-24) H 09/28/19 06:40 ABG Total CO2 30.2 mmol/L (23-27) H 09/28/19 06:40 ABG O2 Saturation 96.7 % (94-98) 09/28/19 06:40 ABG Base Excess 3.3 mmol/L 09/28/19 06:40 VBG pH 7.32 (7.30-7.42) 09/27/19 12:31 VBG pCO2 66.9 mmHg (35-63) H* 09/27/19 12:31 VBG HCO3 33.4 mmol/L (20-32) H 09/27/19 12:31 VBG Base Excess 4.8 mmol/L 09/27/19 12:31 FiO2 3L 09/28/19 06:40 Sodium 138.6 mmol/L (137-145) 09/28/19 07:01 Potassium 3.8 mmol/L (3.6-5.0) 09/28/19 07:01 Chloride 102 mmol/L (98-107) 09/28/19 07:01 Carbon Dioxide 29 mmol/L (22-30) 09/28/19 07:01 Anion Gap 8 (5-19) 09/28/19 07:01 BUN 8 mg/dL (7-20) 09/28/19 07:01 Creatinine 0.60 mg/dL (0.52-1.25) 09/28/19 07:01 Est GFR ( Amer) > 60 (>60) 09/28/19 07:01 Est GFR (MDRD) Non-Af > 60 (>60) 09/28/19 07:01 Glucose 107 mg/dL (75-110) 09/28/19 07:01 Hemoglobin A1c % 5.5 % (4.7-6.0) 09/27/19 12:37 Lactic Acid (Sepsis) 1.2 mmol/L (0.7-2.1) 09/27/19 12:37 Calcium 7.5 mg/dL (8.4-10.2) L 09/28/19 07:01 Phosphorus 1.9 mg/dL (2.5-4.5) L 09/27/19 19:49 Magnesium 2.0 mg/dL (1.6-2.3) 09/27/19 19:49 Total Bilirubin 0.3 mg/dL (0.2-1.3) 09/27/19 12:37 Direct Bilirubin 0.2 mg/dL (0.0-0.4) 09/27/19 12:37 Neonat Total Bilirubin Not Reportable 09/27/19 12:37 Neonat Direct Bilirubin Not Reportable 09/27/19 12:37 Neonat Indirect Bili Not Reportable 09/27/19 12:37 AST 25 U/L (17-59) 09/27/19 12:37 ALT 14 U/L (<50) 09/27/19 12:37 Alkaline Phosphatase 84 U/L (38-126) 09/27/19 12:37 Creatine Kinase 180 U/L (55-170) H 09/28/19 07:01 CK-MB (CK-2) 2.92 ng/mL (<4.55) 09/28/19 07:01 Troponin I 0.067 ng/mL 09/28/19 07:01 NT-Pro-B Natriuret Pep 137 pg/mL (<125) H 09/27/19 12:37 Total Protein 6.4 g/dL (6.3-8.2) 09/27/19 12:37 Albumin 3.3 g/dL (3.5-5.0) L 09/27/19 12:37 Triglycerides 69 mg/dL (<150) 09/27/19 19:49 Cholesterol 104.95 mg/dL (0-200) 09/27/19 19:49 LDL Cholesterol Direct 56 mg/dL (<100) 09/27/19 19:49 VLDL Cholesterol 14.0 mg/dL (10-31) 09/27/19 19:49 HDL Cholesterol 36 mg/dL (>40) L 09/27/19 19:49 TSH 0.15 uIU/mL (0.47-4.68) L 09/28/19 07:01 Urine Color YELLOW 09/27/19 21:14 Urine Appearance CLEAR 09/27/19 21:14 Urine pH 7.0 (5.0-9.0) 09/27/19 21:14 Ur Specific [place] 1.005 09/27/19 21:14 Urine Protein NEGATIVE mg/dL (NEGATIVE) 09/27/19 21:14 Urine Glucose (UA) NEGATIVE mg/dL (NEGATIVE) 09/27/19 21:14 Urine Ketones NEGATIVE mg/dL (NEGATIVE) 09/27/19 21:14 Urine Blood NEGATIVE (NEGATIVE) 09/27/19 21:14 Urine Nitrite NEGATIVE (NEGATIVE) 09/27/19 21:14 Urine Bilirubin NEGATIVE (NEGATIVE) 09/27/19 21:14 Urine Urobilinogen NEGATIVE mg/dL (<2.0) 09/27/19 21:14 Ur Leukocyte Esterase NEGATIVE (NEGATIVE) 09/27/19 21:14 Urine WBC (Auto) 0 /HPF 09/27/19 21:14 Squamous Epi Cells Auto <1 /HPF 09/27/19 21:14 Urine Mucus (Auto) RARE /LPF 09/27/19 21:14 Urine Ascorbic Acid NEGATIVE (NEGATIVE) 09/27/19 21:14 09/27/19 09/27/19 09/28/19 12:37 19:49 00:50 CK-MB (CK-2) 3.34 2.94 Troponin I 0.026 0.034 0.035 NT-Pro-B Natriuret Pep 137 H 09/28/19 07:01 CK-MB (CK-2) 2.92 Troponin I 0.067 NT-Pro-B Natriuret Pep Impressions: Chest/Abdomen CTA 09/27/19 00:00 IMPRESSION: 1. No acute pulmonary embolism. 2. Groundglass opacity in the right middle lobe which represent small airways disease. 3. Unchanged mass along the right upper lobe with deformity of the adjacent right second, third, and fourth anterior ribs. Chest X-Ray 09/27/19 12:00 IMPRESSION: Stable, chronic changes. Stroke Is this a Stroke Patient?: No Acute Heart Failure - Is this a Heart Failure Patient?: No
[2019-10-01] MEDS: OLANZAPINE 5 MG TABLET PO SCH (21:56)
[2019-10-02] MEDS: NORMAL SALINE 1000 ML 1,000 ML IV PRN (04:55)
[2019-10-02] MEDS: METHYLPREDNISOLONE INJ 125 MG/2 ML SDV IV SCH (06:05)
[2019-10-02 08:15] VITALS: BP 141/71
== END 2019-10-02 07:50 | disposition home or self-care (01) | DRG 191 ==
LOC: ER 11:32 → EH 14:16 → INTOOBSV 14:16 → 3S 23:21 → OBSVTOIN 09-30 11:15
PROVIDERS: ADMIT Internal Medicine; ATTEND Internal Medicine
DX: J44.1 Chronic obstructive pulmonary disease with (acute) exacerbation (principal); E87.4 Mixed disorder of acid-base balance; C34.91 Malignant neoplasm of unspecified part of right bronchus or lung; R56.9 Unspecified convulsions; I25.10 Atherosclerotic heart disease of native coronary artery without angina pectoris; E78.5 Hyperlipidemia, unspecified; I10 Essential (primary) hypertension; I73.9 Peripheral vascular disease, unspecified; G47.30 Sleep apnea, unspecified; G43.909 Migraine, unspecified, not intractable, without status migrainosus; M19.90 Unspecified osteoarthritis, unspecified site; F32.9 Major depressive disorder, single episode, unspecified; F17.210 Nicotine dependence, cigarettes, uncomplicated; R63.0 Anorexia; Z79.52 Long term (current) use of systemic steroids; Z79.02 Long term (current) use of antithrombotics/antiplatelets; Z79.82 Long term (current) use of aspirin; Z79.899 Other long term (current) drug therapy; I25.2 Old myocardial infarction; Z87.820 Personal history of traumatic brain injury; Z95.5 Presence of coronary angioplasty implant and graft; Z88.0 Allergy status to penicillin
CPT/HCPCS: 36415; 71045; 71275; 80048; 80053; 80061; 81001; 82550; 82553; 82803; 83036; 83605; 83735; 83880; 84100; 84443; 84484; 85025; 85027; 85379; 85610; 85730; 87040; 93005; 93010; 94640; 96374; 99291; G0378; J1650; J1956; J2930; J3490; J7030; J7620

== ENCOUNTER → 2019-10-25 | Outpatient (CLI) | payer MEDICARE ==
--- NOTE | 2019-10-25 13:35 | RADIOLOGY REPORT (SQ) ---
EXAM DESCRIPTION: CT CHEST WITHOUT COMPLETED DATE/TIME: 10/25/2019 8:33 am REASON FOR STUDY: C34.2 MALIGNANT NEOPLASM OF MIDDLE LOBE, BRONCHUS OR LUNG C34.2 MALIGNANT NEOPLAS M OF MIDDLE LOBE, BRONCHUS OR LUNG COMPARISON: 09/27/2019 TECHNIQUE: CT scan performed of the chest without intravenous contrast. Images reviewed with lung, soft tissue and bone windows. Reconstructed coronal and sagittal MPR images reviewed. All images st ored on PACS. All CT scanners at this facility use dose modulation, iterative reconstruction, and/or weight based d osing when appropriate to reduce radiation dose to as low as reasonably achievable (ALARA). [facility]: Dose Right [facility]: CareDose [facility]: Dose Right [facility]: Teradose 4D [facility]: [employer] RADIATION DOSE: CT Rad equipment meets quality standard of care and radiation dose reduction techniq ues were employed. CTDIvol: 6.1 mGy. DLP: 240 mGy-cm. mGy. LIMITATIONS: No technical limitations. FINDINGS: LUNGS AND PLEURA: Limited ground-glass opacification in the right upper lobe. Centrilobul ar and paraseptal emphysema. Persistent right anterior chest wall mass with rib involvement. Appear s stable. Limited ground-glass infiltrate in the lingula. HILAR AND MEDIASTINAL STRUCTURES: No identified masses or abnormal nodes. No obvious aneurysm. HEART AND VASCULAR STRUCTURES: No aneurysm. No pericardial effusion. UPPER ABDOMEN: No significant findings. Limited exam. THYROID AND OTHER SOFT TISSUES: No masses. No adenopathy. BONES: No significant finding. HARDWARE: None in the chest. OTHER: No other significant findings. IMPRESSION: Persistent anterior chest wall mass that appears stable. Limited ground-glass opacifica tion in the right upper lobe and in the lingula. Pulmonary emphysema. TECHNICAL DOCUMENTATION: JOB ID: [id number] Quality ID # [id number]: Final reports with documentation of one or more dose reduction techniques (e.g., Au tomated exposure control, adjustment of the mA and/or kV according to patient size, use of iterative reconstruction technique) 2010 [employer]- All Rights Reserved Reading location - IP/workstation name: [email or web address]
== END ==
LOC: RAD 08:12
PROVIDERS: ATTEND Internal Medicine
DX: C34.2 Malignant neoplasm of middle lobe, bronchus or lung (principal); J43.2 Centrilobular emphysema
CPT/HCPCS: 71250

== ENCOUNTER 2019-12-11 09:49 | Inpatient (IN) | payer MEDICARE ==
[2019-12-11] MEDS ORDERED: PROMETHAZINE HCL INJ 25 MG/1 ML VIAL IM ONE (09:58)
--- NOTE | 2019-12-11 10:01 | ER Document Report ---
ED Medical Screen (RME) - General Chief Complaint: Vomiting/Diarrhea Stated Complaint: VOMITING,DIARRHEA,WEAKNESS Time Seen by Provider: 12/11/19 09:56 Primary Care Provider: AYDEE SAUCEDA MD [Primary Care Provider] - Follow up as needed Notes: 64 y/o male with history of stage 4 CA on chemo presents for RLQ pain, nausea/vomiting, and diarrhea that started Tuesday. Pt had chemo treatment on Tuesday. Pt has taken oxycodone and zofran for pain and nausea with little relief. Pt appears uncomfortable. Abd soft, tenderness to RLQ. I have greeted and performed a rapid initial assessment of this patient. A compr ehensive ED assessment and evaluation of the patient, analysis of test results and completion of the medical decision making process with be conducted by additional ED providers. TRAVEL OUTSIDE OF THE [place] IN LAST 30 DAYS: No - Related Data Allergies/Adverse Reactions: Penicillins Allergy (Verified 02/01/19 11:44) Past Medical History - Past Medical History Cardiac Medical History: Reports: Hx Coronary Artery Disease, Hx Heart Attack - x3, most recent 1997, Hx Hypercholesterolemia, Hx Hypertension, Hx Peripheral Vascular Disease Pulmonary Medical History: Reports: Hx Bronchitis, Hx COPD, Hx Pneumonia, Hx Sleep Apnea Denies: Hx Asthma Neurological Medical History: Reports: Hx Migraine, Hx Seizures - brain injury. Denies: Hx Cerebrovascular Accident Renal/ Medical History: Reports: Hx Benign Prostatic Hyperplasia. Denies: Hx Peritoneal Dialysis Malignancy Medical History: Reports Hx Lung Cancer Musculoskeltal Medical History: Reports Hx Arthritis Psychiatric Medical History: Reports: Hx Anxiety, Hx Depression Past Surgical History: Reports: Hx Cardiac Catheterization - Stent 2, Hx Cardiac Surgery, Hx Cholecystectomy - Immunizations Immunizations up to date: Yes Hx Diphtheria, Pertussis, Tetanus Vaccination: Yes Physical Exam - Vital signs Vitals: Temp Pulse Resp BP Pulse Ox 98.0 F 112 H 16 140/75 H 95 12/11/19 09:54 12/11/19 09:54 12/11/19 09:54 12/11/19 09:54 12/11/19 09:54 Course - Vital Signs Vital signs: Temp Pulse Resp BP Pulse Ox 98.0 F 112 H 16 140/75 H 95 12/11/19 09:54 12/11/19 09:54 12/11/19 09:54 12/11/19 09:54 12/11/19 09:54 Doctor's Discharge - Discharge Referrals: AYDEE SAUCEDA MD [Primary Care Provider] - Follow up as needed
[2019-12-11 11:04] LABS: ABSOLUTE EOSINOPHILS # (AUTO) 0.1 10^3/uL (0.0-0.6); ABSOLUTE LYMPHOCYTES (AUTO) 0.7 10^3/uL (0.5-4.7); ABSOLUTE MONOCYTES (AUTO) 0.9 10^3/uL (0.1-1.4); ABSOLUTE NEUT (AUTO) 7.2 10^3/uL (1.7-8.2); BASOPHILS % (AUTO) 0.4 % (0-2); EOSINOPHILS % (AUTO) 0.6 % (0-6); HEMATOCRIT 33.5 % (37.9-51.0); HEMOGLOBIN 11.7 g/dL (13.5-17.0); LYMPHOCYTES % (AUTO) 7.4 % (13-45); MEAN CORPUSCULAR HGB CONC 34.9 g/dL (32.0-36.0); MEAN CORPUSCULAR VOLUME 97 fl (80-97); MONOCYTES % (AUTO) 10.3 % (3-13); PLATELET COUNT 399 10^3/uL (150-450); RED BLOOD COUNT 3.44 10^6/uL (4.35-5.55); RED CELL DISTRIBUTION WIDTH 14.7 % (11.5-14.0); SEGMENTED NEUTROPHILS % (AUTO) 81.3 % (42-78); TOTAL CELLS COUNTED % (AUTO) 100 %; WHITE BLOOD COUNT 8.8 10^3/uL (4.0-10.5)
[2019-12-11 11:25] LABS: ALBUMIN 3.4 g/dL (3.5-5.0); ALKALINE PHOSPHATASE 60 U/L (38-126); ANION GAP 11 (5-19); ASPARTATE AMINO TRANSFERASE 22 U/L (17-59); BILIRUBIN,TOTAL 0.3 mg/dL (0.2-1.3); BLOOD UREA NITROGEN 10 mg/dL (7-20); CALCIUM 9.1 mg/dL (8.4-10.2); CARBON DIOXIDE 25 mmol/L (22-30); CHLORIDE 95 mmol/L (98-107); GLUCOSE 164 mg/dL (75-110); POTASSIUM 3.6 mmol/L (3.6-5.0)
[2019-12-11] MEDS: NORMAL SALINE 1000 ML 1,000 ML IV PRN ×2 (12:14→12:58)
--- NOTE | 2019-12-11 12:37 | ER Document Report ---
ED GI/ - General Chief Complaint: Nausea/Vomiting/Diarrhea Stated Complaint: VOMITING,DIARRHEA,WEAKNESS Time Seen by Provider: 12/11/19 09:56 Primary Care Provider: AYDEE SAUCEDA MD [Primary Care Provider] - Follow up as needed Notes: HPI: 64-year-old male on chemotherapy every 3 hours with last chemotherapy on Tuesday. After the chemotherapy he started to have some nausea, vomiting, and diarrhea. Some mild periumbilical abdominal pain. Patient normally has one episode of vomiting but does not only have diarrhea after this treatment. He is being treated for lung cancer with a local oncologist here. Patient denies any fevers, dysuria, or flank pain. No blood in the vomit or diarrhea. ROS: See HPI All other review of systems reviewed and otherwise negative Reviewed vital signs and nursing note as charted by RN. PHYSICAL EXAM: CONSTITUTIONAL: Alert and oriented and responds appropriately to questions. Well-appearing; well-nourished HEAD: Normocephalic; atraumatic EYES: Sclerae non-icteric ENT: Normal nose; no rhinorrhea; moist mucous membranes; pharynx without lesions noted NECK: Supple without meningismus; non-tender; no cervical lymphadenopathy, no masses CARD: Regular rate and rhythm; no murmurs; symmetric distal pulses RESP: Normal chest excursion without splinting or tachypnea; breath sounds clear and equal bilaterally; no wheezes, no rhonchi, no rales ABD/GI: Normal bowel sounds; non-distended; reducible periumbilical hernia that the patient states is chronic. No abdominal bruits. No focal tenderness BACK: The back appears normal and is non-tender to palpation EXT: Normal ROM in all joints; non-tender to palpation; no edema SKIN: No acute lesions noted NEURO: CN 2-12 intact; 5/5 bilateral upper and lower extremity strength with sensation intact to light touch PSYCH: The patient's mood and manner are appropriate. Grooming and personal hygiene are appropriate. TRAVEL OUTSIDE OF THE [place] IN LAST 30 DAYS: No - Related Data Allergies/Adverse Reactions: Penicillins Allergy (Verified 12/11/19 10:03) Past Medical History - Social History Smoking Status: Former Smoker Family History: Reviewed & Not Pertinent Patient has suicidal ideation: No Patient has homicidal ideation: No - Past Medical History Cardiac Medical History: Reports: Hx Coronary Artery Disease, Hx Heart Attack - x3, most recent 1997, Hx Hypercholesterolemia, Hx Hypertension, Hx Peripheral Vascular Disease Pulmonary Medical History: Reports: Hx Bronchitis, Hx COPD, Hx Pneumonia, Hx Sleep Apnea Denies: Hx Asthma Neurological Medical History: Reports: Hx Migraine, Hx Seizures - brain injury. Denies: Hx Cerebrovascular Accident Renal/ Medical History: Reports: Hx Benign Prostatic Hyperplasia. Denies: Hx Peritoneal Dialysis Malignancy Medical History: Reports Hx Lung Cancer Musculoskeletal Medical History: Reports Hx Arthritis Psychiatric Medical History: Reports: Hx Anxiety, Hx Depression Past Surgical History: Reports: Hx Cardiac Catheterization - Stent 2, Hx Cardiac Surgery, Hx Cholecystectomy - Immunizations Immunizations up to date: Yes Hx Diphtheria, Pertussis, Tetanus Vaccination: Yes Hx Pneumococcal Vaccination: 09/20/11 Physical Exam - Vital signs Vitals: Temp Pulse Resp BP Pulse Ox 98.0 F 112 H 16 140/75 H 95 12/11/19 09:54 12/11/19 09:54 12/11/19 09:54 12/11/19 09:54 12/11/19 09:54 Course - Re-evaluation Re-evalutation: Given the history and physical, on chemo, with diarrhea, basic labs including a liver panel, lipase, and stool studies have been ordered. CT scan of the ab domen and pelvis has also been sent given the patient's abdominal discomfort 12/11/19 12:39 Labs as recorded. 2 L of fluid have been provided. Afebrile with no current tenderness. I will hold antibiotics at this moment. 12/11/19 15:25 CT scan of the abdomen pelvis as recorded. Patient will be admitted to the hospitalist for further evaluation and treatment. I did call and speak directly to the oncologist he would like me to provide Solu-Medrol given that he believes some of the diarrhea is secondary to inflammation from the chemotherapy drugs. Stool studies are pending. Repeat lactic acid is pending. 2 L of fluid have been provided. - Vital Signs Vital signs: Temp Pulse Resp BP Pulse Ox 98.0 F 112 H 19 125/73 94 12/11/19 09:54 12/11/19 09:54 12/11/19 15:00 12/11/19 14:01 12/11/19 15:00 - Laboratory Result Diagrams: 12/11/19 10:48 03/03/20 10:48 Laboratory results interpreted by me: 12/11/19 12/11/19 12/11/19 10:48 10:48 10:48 RBC 3.44 L Hgb 11.7 L Hct 33.5 L MCH 34.0 H RDW 14.7 H Lymph % (Auto) 7.4 L Seg Neutrophils % 81.3 H Sodium 130.7 L Chloride 95 L Glucose 164 H Lactic Acid 2.3 H Total Protein 6.0 L Albumin 3.4 L Lipase < 10.0 L Discharge - Discharge Clinical Impression: Nausea vomiting and diarrhea Abdominal pain Qualifiers: Abdominal location: unspecified location Qualified Code(s): R10.9 - Unspecified abdominal pain Condition: Fair Disposition: ADMITTED INPATIENT Admitting Provider: Juni (Hospitalist) Unit Admitted: Medical Floor Referrals: AYDEE SAUCEDA MD [Primary Care Provider] - Follow up as needed
[2019-12-11 13:16] LABS: APPEARANCE,URINE CLEAR; BILIRUBIN,URINE NEGATIVE (NEGATIVE); COLOR,URINE YELLOW; GLUCOSE, URINE NEGATIVE (NEGATIVE); KETONES,URINE NEGATIVE (NEGATIVE); PROTEIN,URINE NEGATIVE (NEGATIVE); URINE SPECIFIC GRAVITY 1.009; UROBILINOGEN,URINE NEGATIVE mg/dL (<2.0)
--- NOTE | 2019-12-11 15:02 | RADIOLOGY REPORT (SQ) ---
EXAM DESCRIPTION: CT ABD/PELVIS WITH IV ONLY COMPLETED DATE/TIME: 12/11/2019 2:41 pm REASON FOR STUDY: 11, vomiting, diarrhea, abdominal pain COMPARISON: 10/25/2019. TECHNIQUE: CT scan of the abdomen and pelvis performed using helical scanning technique with dynamic intravenous contrast injection. No oral contrast. Images reviewed with lung, soft tissue, and bone windows. Reconstructed coronal and sagittal MPR images reviewed. Delayed images for evaluation of the urinary system also acquired. All images stored on PACS. All CT scanners at this facility use dose modulation, iterative reconstruction, and/or weight based d osing when appropriate to reduce radiation dose to as low as reasonably achievable (ALARA). [facility]: Dose Right [facility]: CareDose [facility]: Dose Right [facility]: Teradose 4D [facility]: [employer] CONTRAST TYPE AND DOSE: contrast/concentration: Isovue 350.00 mg/ml; Total Contrast Delivered: 80.0 ml; Total Saline Delivered: 68.0 ml RENAL FUNCTION: BUN 10 creatinine 0.57. RADIATION DOSE: CT Rad equipment meets quality standard of care and radiation dose reduction techniq ues were employed. CTDIvol: 6.0 - 7.9 mGy. DLP: 764 mGy-cm.. LIMITATIONS: None. FINDINGS: LOWER CHEST: No acute findings. Chronic scarring. Vague nodularity in the right base. LIVER: Normal size. No masses. No dilated ducts. SPLEEN: Normal size. No focal lesions. PANCREAS: No masses. No significant calcifications. No adjacent inflammation or peripancreatic fluid collections. Pancreatic duct not dilated. GALLBLADDER: Surgically absent. ADRENAL GLANDS: No significant masses or asymmetry. RIGHT KIDNEY AND URETER: No solid masses. No significant calcifications. No hydronephrosis or hyd roureter. LEFT KIDNEY AND URETER: No solid masses. No significant calcifications. No hydronephrosis or hydr oureter. AORTA AND VESSELS: No aneurysm. No dissection. Renal arteries, SMA, celiac without stenosis. RETROPERITONEUM: No retroperitoneal adenopathy, hemorrhage or masses. BOWEL AND PERITONEAL CAVITY: Large amount of stool throughout the colon and rectum. No masses or inf lammatory changes. No free fluid or peritoneal masses. APPENDIX: Not visualized. PELVIS: No mass. No free fluid. Normal bladder. ABDOMINAL WALL: No masses. No hernias. BONES: No significant or acute findings. OTHER: No other significant finding. IMPRESSION: LARGE AMOUNT OF STOOL THROUGHOUT THE COLON AND RECTUM. NO OTHER SIGNIFICANT OR ACUTE FI NDING IN THE ABDOMEN OR PELVIS ON CT SCAN WITH IV CONTRAST. TECHNICAL DOCUMENTATION: JOB ID: [id number] Quality ID # [id number]: Final reports with documentation of one or more dose reduction techniques (e.g., Au tomated exposure control, adjustment of the mA and/or kV according to patient size, use of iterative reconstruction technique) 2010 [employer]- All Rights Reserved Reading location - IP/workstation name: [email or web address]
[2019-12-11] MEDS ORDERED: METHYLPREDNISOLONE INJ 125 MG/2 ML SDV IV ONE (15:21)
[2019-12-11 16:02] LABS: C DIFFICILE GDH NEGATIVE (NEGATIVE)
[2019-12-11] MEDS ORDERED: IPRATROPIUM/ALBUTEROL 0.5-2.5 MG/3 ML AMPUL NEB PRN (17:57)
[2019-12-11] MEDS: RINGERS SOLUTION,LACTATED 1,000 ML IV PRN (18:29)
[2019-12-11] MEDS: ENOXAPARIN SODIUM INJ 40 MG/0.4 ML DISP.SYRIN SUBCUT SCH (18:29)
--- NOTE | 2019-12-11 18:56 | EKG REPORT ---
SEVERITY:- ABNORMAL ECG - SINUS RHYTHM VENTRICULAR PREMATURE COMPLEX RBBB AND LAFB : Confirmed by: Jimmy Valentine MD 11-Dec-2019 18:55:50
[2019-12-11 19:10] LABS: ANION GAP 8 (5-19); BLOOD UREA NITROGEN 9 mg/dL (7-20); CALCIUM 8.2 mg/dL (8.4-10.2); CARBON DIOXIDE 25 mmol/L (22-30); CHLORIDE 100 mmol/L (98-107); GLUCOSE 124 mg/dL (75-110); PHOSPHORUS 2.3 mg/dL (2.5-4.5); POTASSIUM 3.9 mmol/L (3.6-5.0)
[2019-12-11 19:11] LABS: INTERNATIONAL RATION (INR) 1.13; PARTIAL THROMBOPLASTIN TIME 33.2 SEC (23.5-35.8); PROTHROMBIN TIME 14.5 SEC (11.4-15.4)
[2019-12-11 19:14] LABS: AMYLASE < 30 U/L (30-110)
[2019-12-11 19:25] LABS: CREATINE KINASE MB 1.46 ng/mL (<4.55); TROPONIN I 0.013 ng/mL
[2019-12-11 19:29] LABS: FREE T4 (FREE THYROXINE) 1.18 ng/dL (0.78-2.19)
[2019-12-11 19:43] LABS: THYROID STIMULATING HORMONE 0.62 uIU/mL (0.47-4.68)
[2019-12-11 19:51] LABS: URINE AMPHETAMINES SCREEN NEGATIVE; URINE BARBITURATES SCREEN NEGATIVE; URINE BENZODIAZEPINES SCREEN NEGATIVE; URINE COCAINE SCREEN NEGATIVE; URINE MARIJUANA (THC) SCREEN NEGATIVE; URINE METHADONE SCREEN NEGATIVE; URINE PHENCYCLIDINE SCREEN NEGATIVE
--- NOTE | 2019-12-11 20:36 | PDOC H&P ---
History of Present Illness Admission Date/PCP: 12/11/19 15:40 AYDEE SAUCEDA MD History of Present Illness: LAKSHMI ALAMO is a 64 year old male, He has a history of stage IV recurrent lung cancer on chemotherapy he came to the emergency room for evaluation of vomiting and diarrhea. He apparently is on Keytruda according to the record for couple of months, GI side effects is a complication of the medication.CAT scan of the abdomen and pelvis with IV contrast was obtained in the emergency room, it demonstrated large amount of stool throughout the colon and rectum there was no other significant findings, no evidence of colitis on the CAT scan.He was seen by the oncologist he was given a dose of intravenous glucocorticoid, Solu- Medrol, the oncologist felt the GI symptoms is probably from the chemotherapeutic agent that patient is receiving for his lung cancer.Patient unfortunately continues to smoke tobacco despite stage IV lung cancer, recurrent, I see him on the floor, he will stay for 24 hours for hydration and symptom control Past Medical History Cardiac Medical History: Reports: Coronary Artery Disease, Myocardial Infarction - x3, most recent 1997, Hyperlipidema, Hypertension, Peripheral Vascular Disease Pulmonary Medical History: Reports: Bronchitis, Chronic Obstructive Pulmonary Disease (COPD), Pneumonia, Sleep Apnea Neurological Medical History: Reports: Migraine, Seizures - brain injury Malignancy Medical History: Reports: Lung Cancer Musculoskeltal Medical History: Reports: Arthritis Psychiatric Medical History: Reports: Depression Past Surgical History Past Surgical History: Reports: Cardiac Catheterization - Stent 2, Cholecystectomy Social History Smoking Status: Current Every Day Smoker Cigarettes Packs Per Day: 2 Electronic Cigarette use?: No Frequency of Alcohol Use: None Hx Recreational Drug Use: No Drugs: None Hx Prescription Drug Abuse: No Family History Family History: Reviewed & Not Pertinent Parental Family History Reviewed: Yes Children Family History Reviewed: Yes Sibling(s) Family History Reviewed.: Yes Medication/Allergy Home Medications: Albuterol Sulfate [Proair HFA Inhalation Aerosol 8.5 gm MDI] 2 puff IH Q4HP PRN 02/01/19 Aspirin [Ecotrin 81 mg EC Tablet] 81 mg PO QHS 02/01/19 Butalb/Acetaminophen/Caffeine [Fioricet (50-325-40 mg) Tablet] 1 tab PO Q4HP PRN 02/01/19 Clopidogrel Bisulfate [Plavix 75 mg Tablet] 75 mg PO QHS 02/01/19 Dexlansoprazole [Dexilant 30 mg Capsule] 30 mg PO QHS 02/01/19 Diclofenac Sodium 1 gm TOP QIDP PRN 02/01/19 Duloxetine HCl [Cymbalta] 60 mg PO Q12 02/01/19 Finasteride [Proscar 5 mg Tablet] 5 mg PO QPM 02/01/19 Fluticasone Propionate [Flonase Nasal [place] 50 Mcg/[place] 16 gm] 1 spray NAREB DAILY 02/01/19 Fluticasone/Salmeterol [Advair 250-50 Diskus 14 Dose/Diskus] 1 puff IH Q12 02/01/19 Folic Acid [Folvite 1 mg Tablet] 1 mg PO QHS 02/01/19 Levetiracetam [Keppra 500 mg Tablet] 500 mg PO Q12 02/01/19 Levocetirizine Dihydrochloride [Xyzal] 5 mg PO QPM 02/01/19 Montelukast Sodium [Singulair 10 mg Tablet] 10 mg PO QHS 02/01/19 Olanzapine [Zyprexa] 20 mg PO QHS 02/01/19 Tamsulosin HCl [Flomax 0.4 mg Cap.sr] 0.4 mg PO QPM 02/01/19 Magnesium Oxide [Mag-Oxide] 500 mg PO BID 09/28/19 Ondansetron [Zofran Odt 4 mg Tablet] 8 mg PO TIDP PRN 09/28/19 Dronabinol 5 mg PO BID 12/11/19 Nitroglycerin [Nitrostat 0.4 mg (1/150 Gr) Tabs 25/Bottle] 1 tab SL Q5MP PRN 12/11/19 Oxycodone HCl 20 mg PO QIDP PRN 12/11/19 Potassium Chloride [Klor-Con M20] 20 meq PO DAILY 12/11/19 Vit/Dha [ Multi + Dha Capsule] 1 cap PO DAILY 12/11/19 Rosuvastatin Calcium 10 mg PO QHS 12/11/19 Diphenoxylate HCl/Atrop Sulf [Lomotil 2.5 mg Tablet] 1 tab PO Q6HP PRN #120 tablet 12/12/19 Prednisone [Deltasone 20 mg Tablet] 60 mg PO DAILY #21 tablet 12/12/19 Promethazine HCl 12.5 mg PO Q6HP PRN #60 tablet 12/12/19 Allergies/Adverse Reactions: Penicillins Allergy (Verified 12/11/19 10:03) Review of Systems Constitutional: ABSENT: chills, fever(s), headache(s), weight gain, weight loss Eyes: ABSENT: visual disturbances Ears: ABSENT: hearing changes Cardiovascular: ABSENT: chest pain, dyspnea on exertion, edema, orthropnea, palpitations Respiratory: ABSENT: cough, hemoptysis Gastrointestinal: PRESENT: diarrhea, vomiting Genitourinary: ABSENT: dysuria, hematuria Musculoskeletal: ABSENT: joint swelling Integumentary: ABSENT: rash, wounds Neurological: ABSENT: abnormal gait, abnormal speech, confusion, dizziness, focal weakness, syncope Psychiatric: ABSENT: anxiety, depression, homidical ideation, suicidal ideation Endocrine: ABSENT: cold intolerance, heat intolerance, menstrual abnormalities, polydipsia, polyuria Hematologic/Lymphatic: ABSENT: easy bleeding, easy bruising, lymphadenopathy Physical Exam Vital Signs: Temp Pulse Resp BP Pulse Ox 98.2 F 96 18 119/62 91 L 12/11/19 17:30 12/11/19 17:34 12/11/19 17:30 12/11/19 17:30 12/11/19 17:30 Intake & Output 12/10/19 12/11/19 12/12/19 06:59 06:59 06:59 Intake Total 1999 Balance 1999 Weight 72 kg General appearance: PRESENT: no acute distress Head exam: PRESENT: atraumatic, normocephalic Eye exam: PRESENT: conjunctiva pink, EOMI, PERRLA Ear exam: PRESENT: normal external ear exam Mouth exam: PRESENT: moist, tongue midline Neck exam: PRESENT: full ROM Respiratory exam: PRESENT: clear to auscultation todd Cardiovascular exam: PRESENT: RRR, +S1, +S2 Pulses: PRESENT: normal dorsalis pedis pul, +2 pedal pulses bilateral Vascular exam: PRESENT: normal capillary refill GI/Abdominal exam: PRESENT: normal bowel sounds, soft Rectal exam: PRESENT: deferred Neurological exam: PRESENT: alert, CN II-XII grossly intact Psychiatric exam: PRESENT: appropriate affect, normal mood Skin exam: PRESENT: dry, intact, warm Results Laboratory Results: 12/11/19 10:48 12/11/19 18:22 03/03/20 03/03/20 03/03/20 10:48 10:48 10:48 WBC 8.8 RBC 3.44 L Hgb 11.7 L Hct 33.5 L MCV 97 MCH 34.0 H MCHC 34.9 RDW 14.7 H Plt Count 399 Seg Neutrophils % 81.3 H Sodium 130.7 L Potassium 3.6 Chloride 95 L Carbon Dioxide 25 Anion Gap 11 BUN 10 Creatinine 0.57 Est GFR ( Amer) > 60 Glucose 164 H Lactic Acid 2.3 H Calcium 9.1 Phosphorus Magnesium Total Bilirubin 0.3 AST 22 Alkaline Phosphatase 60 Ammonia Total Protein 6.0 L Albumin 3.4 L Amylase Lipase < 10.0 L TSH Free T4 Urine Color Urine Appearance Urine pH Ur Specific [place] Urine Protein Urine Glucose (UA) Urine Ketones Urine Blood Urine RBC (Auto) Stool for White Cells 12/11/19 12/11/19 12/11/19 12:52 13:26 18:22 WBC RBC Hgb Hct MCV MCH MCHC RDW Plt Count Seg Neutrophils % Sodium 133.1 L Potassium 3.9 Chloride 100 Carbon Dioxide 25 Anion Gap 8 BUN 9 Creatinine 0.48 L Est GFR ( Amer) > 60 Glucose 124 H Lactic Acid Calcium 8.2 L Phosphorus 2.3 L Magnesium 1.5 L Total Bilirubin AST Alkaline Phosphatase Ammonia Total Protein Albumin Amylase < 30 L Lipase < 10.0 L TSH Free T4 Urine Color YELLOW Urine Appearance CLEAR Urine pH 6.0 Ur Specific [place] 1.009 Urine Protein NEGATIVE Urine Glucose (UA) NEGATIVE Urine Ketones NEGATIVE Urine Blood NEGATIVE Urine RBC (Auto) 1 Stool for White Cells NO WBCs SEEN 12/11/19 12/11/19 18:22 18:22 WBC RBC Hgb Hct MCV MCH MCHC RDW Plt Count Seg Neutrophils % Sodium Potassium Chloride Carbon Dioxide Anion Gap BUN Creatinine Est GFR ( Amer) Glucose Lactic Acid Calcium Phosphorus Magnesium Total Bilirubin AST Alkaline Phosphatase Ammonia < 8.7 L Total Protein Albumin Amylase Lipase TSH 0.62 Free T4 1.18 Urine Color Urine Appearance Urine pH Ur Specific [place] Urine Protein Urine Glucose (UA) Urine Ketones Urine Blood Urine RBC (Auto) Stool for White Cells 12/11/19 12/11/19 12/11/19 18:22 18:22 18:22 Creatine Kinase 155 CK-MB (CK-2) 1.46 Troponin I 0.013 NT-Pro-B Natriuret Pep 153 H Impressions: Abdomen/Pelvis CT 12/11/19 12:36 IMPRESSION: LARGE AMOUNT OF STOOL THROUGHOUT THE COLON AND RECTUM. NO OTHER SIGNIFICANT OR ACUTE FINDING IN THE ABDOMEN OR PELVIS ON CT SCAN WITH IV CONTRAST. Assessment & Plan - Diagnosis (1) Acute gastroenteritis Is this a current diagnosis for this admission?: Yes Plan: This is most likely related to the chemotherapeutic agent, patient received a dose of steroid (2) Stage 4 lung cancer Qualifiers: Laterality: unspecified laterality Qualified Code(s): C34.90 - Malignant neoplasm of unspecified part of unspecified bronchus or lung Is this a current diagnosis for this admission?: Yes (3) Chemotherapy induced diarrhea Is this a current diagnosis for this admission?: Yes
[2019-12-11] MEDS ORDERED: OXYCODONE-ACETAMINOPHEN 5-325 MG TABLET ONE (23:40)
[2019-12-11] MEDS ORDERED: LEVETIRACETAM 500 MG TABLET PO SCH (23:45)
[2019-12-11] MEDS ORDERED: (PENDING PHARMACY ID) (Fluticasone/Salmeterol 1 PUFF) IH SCH (23:45)
[2019-12-11] MEDS ORDERED: ONDANSETRON 4 MG TAB.RAPDIS PO PRN (23:50)
[2019-12-11] MEDS ORDERED: DICLOFENAC SODIUM 1 GM TOP PRN (23:50)
[2019-12-11] MEDS ORDERED: ALBUTEROL SULFATE HFA (90 MCG/PUFF) 8 GM MDI (1 MDI/ER DISP) IH PRN (23:50)
[2019-12-11] MEDS ORDERED: NITROGLYCERIN 0.4 MG/TAB 25 TAB/BOTTLE SL PRN (23:50)
[2019-12-11] MEDS ORDERED: BUTALB/ACETAMINOPHEN/CAFFEINE 1 TAB EACH PO PRN (23:50)
[2019-12-12] MEDS ORDERED: LEVETIRACETAM 500 MG TABLET PO ONE ×2 (00:15→02:45)
[2019-12-12] MEDS ORDERED: FOLIC ACID 1 MG TABLET PO ONE ×2 (00:15→02:45)
[2019-12-12] MEDS ORDERED: ATORVASTATIN CALCIUM 20 MG TABLET PO ONE ×2 (00:15→02:45)
[2019-12-12] MEDS ORDERED: DULOXETINE HCL 30 MG CAPSULE.DR PO ONE ×2 (00:15→02:45)
[2019-12-12] MEDS ORDERED: CLOPIDOGREL BISULFATE 75 MG TABLET PO ONE ×2 (00:15→02:45)
[2019-12-12] MEDS ORDERED: FINASTERIDE 5 MG TABLET PO ONE ×2 (00:15→02:45)
[2019-12-12] MEDS ORDERED: OLANZAPINE 5 MG TABLET PO ONE ×2 (00:15→02:45)
[2019-12-12] MEDS ORDERED: PANTOPRAZOLE SODIUM 20 MG TABLET.DR PO ONE ×2 (00:15→02:45)
[2019-12-12] MEDS ORDERED: TAMSULOSIN HCL 0.4 MG CAP.SR.24H PO ONE ×2 (01:00→03:00)
[2019-12-12] MEDS ORDERED: MONTELUKAST SODIUM 10 MG TABLET PO ONE ×2 (01:00→03:00)
[2019-12-12] MEDS ORDERED: ASPIRIN 81 MG TABLET, ENT COATED PO ONE ×2 (01:00→03:00)
[2019-12-12 01:04] LABS: CREATINE KINASE MB 1.2 ng/mL (<4.55); TROPONIN I 0.012 ng/mL
[2019-12-12] MEDS: RINGERS SOLUTION,LACTATED 1,000 ML IV PRN ×2 (02:59→11:58)
[2019-12-12] MEDS: OXYCODONE HCL IR 5 MG TABLET PO PRN ×2 (03:00→09:37)
[2019-12-12 06:16] LABS: ABSOLUTE LYMPHOCYTES (AUTO) 0.7 10^3/uL (0.5-4.7); ABSOLUTE MONOCYTES (AUTO) 0.5 10^3/uL (0.1-1.4); ABSOLUTE NEUT (AUTO) 5.6 10^3/uL (1.7-8.2); BASOPHILS % (AUTO) 0.3 % (0-2); HEMATOCRIT 28.4 % (37.9-51.0); HEMOGLOBIN 9.8 g/dL (13.5-17.0); LYMPHOCYTES % (AUTO) 9.9 % (13-45); MEAN CORPUSCULAR HEMOGLOBIN 33.9 pg (27.0-33.4); MEAN CORPUSCULAR HGB CONC 34.6 g/dL (32.0-36.0); MEAN CORPUSCULAR VOLUME 98 fl (80-97); MONOCYTES % (AUTO) 7.4 % (3-13); PLATELET COUNT 298 10^3/uL (150-450); RED CELL DISTRIBUTION WIDTH 14.5 % (11.5-14.0); SEGMENTED NEUTROPHILS % (AUTO) 82.4 % (42-78); TOTAL CELLS COUNTED % (AUTO) 100 %; WHITE BLOOD COUNT 6.8 10^3/uL (4.0-10.5)
[2019-12-12 06:37] LABS: ALBUMIN 2.8 g/dL (3.5-5.0); ALKALINE PHOSPHATASE 45 U/L (38-126); ASPARTATE AMINO TRANSFERASE 18 U/L (17-59); BILIRUBIN,TOTAL 0.2 mg/dL (0.2-1.3); CREATINE KINASE 88 U/L (55-170); TOTAL PROTEIN 4.8 g/dL (6.3-8.2)
[2019-12-12 06:45] LABS: CREATINE KINASE MB 1.03 ng/mL (<4.55); TROPONIN I 0.013 ng/mL
[2019-12-12] MEDS ORDERED: ALBUTEROL SULFATE HFA (90 MCG/PUFF) 8 GM MDI IH PRN (06:57)
--- NOTE | 2019-12-12 09:08 | PDOC CONSULTATION ---
Consultation Consult Date: 12/12/19 Attending physician:: AYDEE SAUCEDA Provider Consulted: BARBER COLLADO Consult reason:: Patient with stage IV lung cancer currently on Keytruda here with severe diarrhea and shortness of breath nausea vomiting History of Present Illness Admission Date/PCP: 12/11/19 15:40 AYDEE SAUCEDA MD Patient complains of: Diarrhea, nausea vomiting History of Present Illness: LAKSHMI ALAMO is a 64 year old male with known history of stage IV lung cancer who has been on Keytruda now longstanding for about 10 months. Received a dose of treatment last week and about 24 hours after receiving this as well as Xgeva began having severe diarrhea at about 6-7 episodes prior to coming in along with nausea and vomiting. CT of the abdomen pelvis just shows a lot of stool in the bowel. However I instructed the ED to give them a dose of Solu-Medrol 125 mg IV. Within 24 hours is diarrhea had stopped and nausea vomiting improved. He is doing better now and advancing his diet. Past Medical History Cardiac Medical History: Reports: Coronary Artery Disease, Myocardial Infarction - x3, most recent 1997, Hyperlipidema, Hypertension, Peripheral Vascular Disease Pulmonary Medical History: Reports: Bronchitis, Chronic Obstructive Pulmonary Disease (COPD), Pneumonia, Sleep Apnea Denies: Asthma Neurological Medical History: Reports: Migraine, Seizures - brain injury Malignancy Medical History: Reports: Lung Cancer Musculoskeltal Medical History: Reports: Arthritis Psychiatric Medical History: Reports: Depression Hematology: Denies: Anemia Past Surgical History Past Surgical History: Reports: Cardiac Catheterization - Stent 2, Cholecystectomy Social History Smoking Status: Current Every Day Smoker Cigarettes Packs Per Day: 2 Electronic Cigarette use?: No Frequency of Alcohol Use: None Hx Recreational Drug Use: No Drugs: None Hx Prescription Drug Abuse: No - Advance Directive Resuscitation Status: Full Code Family History Family History: Reviewed & Not Pertinent Parental Family History Reviewed: Yes Children Family History Reviewed: Yes Sibling(s) Family History Reviewed.: Yes Medication/Allergy Home Medications: Albuterol Sulfate [Proair HFA Inhalation Aerosol 8.5 gm MDI] 2 puff IH Q4HP PRN 02/01/19 Aspirin [Ecotrin 81 mg EC Tablet] 81 mg PO QHS 02/01/19 Butalb/Acetaminophen/Caffeine [Fioricet (50-325-40 mg) Tablet] 1 tab PO Q4HP PRN 02/01/19 Clopidogrel Bisulfate [Plavix 75 mg Tablet] 75 mg PO QHS 02/01/19 Dexlansoprazole [Dexilant 30 mg Capsule] 30 mg PO QHS 02/01/19 Diclofenac Sodium 1 gm TOP QIDP PRN 02/01/19 Duloxetine HCl [Cymbalta] 60 mg PO Q12 02/01/19 Finasteride [Proscar 5 mg Tablet] 5 mg PO QPM 02/01/19 Fluticasone Propionate [Flonase Nasal [place] 50 Mcg/[place] 16 gm] 1 spray NAREB DAILY 02/01/19 Fluticasone/Salmeterol [Advair 250-50 Diskus 14 Dose/Diskus] 1 puff IH Q12 02/01/19 Folic Acid [Folvite 1 mg Tablet] 1 mg PO QHS 02/01/19 Levetiracetam [Keppra 500 mg Tablet] 500 mg PO Q12 02/01/19 Levocetirizine Dihydrochloride [Xyzal] 5 mg PO QPM 02/01/19 Montelukast Sodium [Singulair 10 mg Tablet] 10 mg PO QHS 02/01/19 Olanzapine [Zyprexa] 20 mg PO QHS 02/01/19 Tamsulosin HCl [Flomax 0.4 mg Cap.sr] 0.4 mg PO QPM 02/01/19 Magnesium Oxide [Mag-Oxide] 500 mg PO BID 09/28/19 Ondansetron [Zofran Odt 4 mg Tablet] 8 mg PO TIDP PRN 09/28/19 Dronabinol 5 mg PO BID 12/11/19 Nitroglycerin [Nitrostat 0.4 mg (1/150 Gr) Tabs 25/Bottle] 1 tab SL Q5MP PRN 12/11/19 Oxycodone HCl 20 mg PO QIDP PRN 12/11/19 Potassium Chloride [Klor-Con M20] 20 meq PO DAILY 12/11/19 Vit/Dha [ Multi + Dha Capsule] 1 cap PO DAILY 12/11/19 Rosuvastatin Calcium 10 mg PO QHS 12/11/19 Allergies/Adverse Reactions: Penicillins Allergy (Verified 12/11/19 10:03) Review of Systems Constitutional: ABSENT: chills, fever(s), headache(s), weight gain, weight loss Eyes: ABSENT: visual disturbances Ears: ABSENT: hearing changes Cardiovascular: ABSENT: chest pain, dyspnea on exertion, edema, orthropnea, palpitations Respiratory: ABSENT: cough, hemoptysis Gastrointestinal: ABSENT: abdominal pain, constipation, diarrhea, hematemesis, hematochezia, nausea, vomiting Genitourinary: ABSENT: dysuria, hematuria Musculoskeletal: ABSENT: joint swelling Integumentary: ABSENT: rash, wounds Neurological: ABSENT: abnormal gait, abnormal speech, confusion, dizziness, focal weakness, syncope Psychiatric: ABSENT: anxiety, depression, homidical ideation, suicidal ideation Endocrine: ABSENT: cold intolerance, heat intolerance, polydipsia, polyuria Hematologic/Lymphatic: ABSENT: easy bleeding, easy bruising Physical Exam Vital Signs: Temp Pulse Resp BP Pulse Ox 98.5 F 115 H 18 140/54 H 94 12/12/19 08:05 12/12/19 08:05 12/12/19 08:05 12/12/19 08:05 12/12/19 08:05 Intake & Output 12/11/19 12/12/19 12/13/19 06:59 06:59 06:59 Intake Total 3100 Balance 3100 Weight 72.1 kg General appearance: PRESENT: no acute distress, well-developed, well-nourished Head exam: PRESENT: atraumatic, normocephalic Eye exam: PRESENT: conjunctiva pink, EOMI, PERRLA. ABSENT: scleral icterus Ear exam: PRESENT: normal external ear exam Mouth exam: PRESENT: moist, tongue midline Neck exam: ABSENT: carotid bruit, JVD, lymphadenopathy, thyromegaly Respiratory exam: PRESENT: clear to auscultation todd. ABSENT: rales, rhonchi, wheezes Cardiovascular exam: PRESENT: RRR. ABSENT: diastolic murmur, rubs, systolic murmur Pulses: PRESENT: normal dorsalis pedis pul Vascular exam: PRESENT: normal capillary refill GI/Abdominal exam: PRESENT: normal bowel sounds, soft. ABSENT: distended, guarding, mass, organolmegaly, rebound, tenderness Rectal exam: PRESENT: deferred Extremities exam: PRESENT: full ROM. ABSENT: calf tenderness, clubbing, pedal edema Neurological exam: PRESENT: alert, awake, oriented to person, oriented to place, oriented to time, oriented to situation, CN II-XII grossly intact. ABSENT: motor sensory deficit Psychiatric exam: PRESENT: appropriate affect, normal mood. ABSENT: homicidal ideation, suicidal ideation Skin exam: PRESENT: dry, intact, warm. ABSENT: cyanosis, rash Results Laboratory Results: 12/12/19 05:55 12/11/19 18:22 12/11/19 12/11/19 12/11/19 10:48 10:48 10:48 WBC 8.8 RBC 3.44 L Hgb 11.7 L Hct 33.5 L MCV 97 MCH 34.0 H MCHC 34.9 RDW 14.7 H Plt Count 399 Seg Neutrophils % 81.3 H Sodium 130.7 L Potassium 3.6 Chloride 95 L Carbon Dioxide 25 Anion Gap 11 BUN 10 Creatinine 0.57 Est GFR ( Amer) > 60 Glucose 164 H Lactic Acid 2.3 H Calcium 9.1 Phosphorus Magnesium Total Bilirubin 0.3 AST 22 Alkaline Phosphatase 60 Ammonia Total Protein 6.0 L Albumin 3.4 L Amylase Lipase < 10.0 L TSH Free T4 Urine Color Urine Appearance Urine pH Ur Specific [place] Urine Protein Urine Glucose (UA) Urine Ketones Urine Blood Urine RBC (Auto) Stool for White Cells 12/11/19 12/11/19 12/11/19 12:52 13:26 18:22 WBC RBC Hgb Hct MCV MCH MCHC RDW Plt Count Seg Neutrophils % Sodium 133.1 L Potassium 3.9 Chloride 100 Carbon Dioxide 25 Anion Gap 8 BUN 9 Creatinine 0.48 L Est GFR ( Amer) > 60 Glucose 124 H Lactic Acid Calcium 8.2 L Phosphorus 2.3 L Magnesium 1.5 L Total Bilirubin AST Alkaline Phosphatase Ammonia Total Protein Albumin Amylase < 30 L Lipase < 10.0 L TSH Free T4 Urine Color YELLOW Urine Appearance CLEAR Urine pH 6.0 Ur Specific [place] 1.009 Urine Protein NEGATIVE Urine Glucose (UA) NEGATIVE Urine Ketones NEGATIVE Urine Blood NEGATIVE Urine RBC (Auto) 1 Stool for White Cells NO WBCs SEEN 12/11/19 12/11/19 12/12/19 18:22 18:22 05:55 WBC 6.8 RBC 2.90 L Hgb 9.8 L Hct 28.4 L MCV 98 H MCH 33.9 H MCHC 34.6 RDW 14.5 H Plt Count 298 Seg Neutrophils % 82.4 H Sodium Potassium Chloride Carbon Dioxide Anion Gap BUN Creatinine Est GFR ( Amer) Glucose Lactic Acid Calcium Phosphorus Magnesium Total Bilirubin AST Alkaline Phosphatase Ammonia < 8.7 L Total Protein Albumin Amylase Lipase TSH 0.62 Free T4 1.18 Urine Color Urine Appearance Urine pH Ur Specific [place] Urine Protein Urine Glucose (UA) Urine Ketones Urine Blood Urine RBC (Auto) Stool for White Cells 12/12/19 05:55 WBC RBC Hgb Hct MCV MCH MCHC RDW Plt Count Seg Neutrophils % Sodium Potassium Chloride Carbon Dioxide Anion Gap BUN Creatinine Est GFR ( Amer) Glucose Lactic Acid Calcium Phosphorus Magnesium Total Bilirubin 0.2 AST 18 Alkaline Phosphatase 45 Ammonia Total Protein 4.8 L Albumin 2.8 L Amylase Lipase TSH Free T4 Urine Color Urine Appearance Urine pH Ur Specific [place] Urine Protein Urine Glucose (UA) Urine Ketones Urine Blood Urine RBC (Auto) Stool for White Cells 12/11/19 12/11/19 12/11/19 18:22 18:22 18:22 Creatine Kinase 155 CK-MB (CK-2) 1.46 Troponin I 0.013 NT-Pro-B Natriuret Pep 153 H 12/12/19 12/12/19 12/12/19 00:23 00:23 05:55 Creatine Kinase 111 88 CK-MB (CK-2) 1.20 Troponin I 0.012 NT-Pro-B Natriuret Pep 12/12/19 05:55 Creatine Kinase CK-MB (CK-2) 1.03 Troponin I 0.013 NT-Pro-B Natriuret Pep Impressions: Abdomen/Pelvis CT 12/11/19 12:36 IMPRESSION: LARGE AMOUNT OF STOOL THROUGHOUT THE COLON AND RECTUM. NO OTHER SIGNIFICANT OR ACUTE FINDING IN THE ABDOMEN OR PELVIS ON CT SCAN WITH IV CONTRAST. Status: Image reviewed by me Assessment & Plan - Diagnosis (1) Nausea vomiting and diarrhea Is this a current diagnosis for this admission?: Yes Plan: It may be colitis related to the Keytruda. This can happen at any time. Given the severe presentation, and no other answer for why he had it, we must consider the possibility of inflammatory colitis, initiate prednisone 60 mg daily. He will need to be on a 4-week steroid taper. (2) Lung cancer Qualifiers: Laterality: right Lung location: unspecified part of lung Qualified Code(s): C34.91 - Malignant neoplasm of unspecified part of right bronchus or lung Is this a current diagnosis for this admission?: Yes Plan: Stage IV lung cancer, holding Keytruda until steroids are tapered. Last imaging done about 6 weeks ago indicated stable disease. - Time Time Spent: Greater than 70 Minutes
[2019-12-12] MEDS: ENOXAPARIN SODIUM INJ 40 MG/0.4 ML DISP.SYRIN SUBCUT SCH (09:24)
[2019-12-12] MEDS ORDERED: LEVETIRACETAM 500 MG TABLET PO SCH (10:00)
[2019-12-12] MEDS ORDERED: FLUTICASONE NASAL SPRAY 50 MCG/SPRY 120 SPRAY/16 GM NAREB SCH (10:00)
[2019-12-12] MEDS ORDERED: FLUTICASONE/VILANTEROL 200-25 MCG/DOSE IH SCH (10:00)
[2019-12-12] MEDS ORDERED: DRONABINOL 2.5 MG CAPSULE PO SCH (10:00)
[2019-12-12] MEDS ORDERED: MAGNESIUM OXIDE 400 MG TABLET PO SCH (10:00)
[2019-12-12] MEDS ORDERED: DULOXETINE HCL 30 MG CAPSULE.DR PO SCH (10:00)
[2019-12-12] MEDS ORDERED: PRENATAL VITAMIN W DHA CAPSULE PO SCH (10:00)
[2019-12-12] MEDS ORDERED: POTASSIUM CHLORIDE 10 MEQ TABLET.ER PO SCH (10:00)
[2019-12-12] MEDS ORDERED: PREDNISONE 20 MG TABLET PO SCH (10:00)
[2019-12-12] MEDS ORDERED: DIPHENOXYLATE HCL/ATROP SULF 2.5-0.025 MG TABLET PO PRN (10:15)
[2019-12-12] MEDS ORDERED: DIPHENOXYLATE HCL/ATROP SULF 2.5-0.025 MG TABLET PO ONE (10:45)
[2019-12-12 15:06] VITALS: BP 119/62
--- NOTE | 2019-12-12 16:25 | PDOC DISCHARGE SUMMARY ---
Impression - Admit/DC Date/PCP Admission Date/Primary Care Provider: 12/11/19 15:40 AYDEE SAUCEDA MD Discharge Date: 12/12/19 - Discharge Diagnosis (1) Acute gastroenteritis Is this a current diagnosis for this admission?: Yes (2) Stage 4 lung cancer Is this a current diagnosis for this admission?: Yes (3) Chemotherapy induced diarrhea Is this a current diagnosis for this admission?: Yes - Additional Information Resuscitation Status: Full Code Discharge Activity: Activity As Tolerated Referrals: AYDEE SAUCEDA MD [Primary Care Provider] - 12/20/19 9:15 am Prescriptions: Diphenoxylate HCl/Atrop Sulf [Lomotil 2.5 mg Tablet] 1 tab PO Q6HP PRN #120 tablet PRN Reason: Promethazine HCl 12.5 mg PO Q6HP PRN #60 tablet PRN Reason: Prednisone [Deltasone 20 mg Tablet] 60 mg PO DAILY #21 tablet Home Medications: Albuterol Sulfate [Proair HFA Inhalation Aerosol 8.5 gm MDI] 2 puff IH Q4HP PRN 02/01/19 Aspirin [Ecotrin 81 mg EC Tablet] 81 mg PO QHS 02/01/19 Butalb/Acetaminophen/Caffeine [Fioricet (50-325-40 mg) Tablet] 1 tab PO Q4HP PRN 02/01/19 Clopidogrel Bisulfate [Plavix 75 mg Tablet] 75 mg PO QHS 02/01/19 Dexlansoprazole [Dexilant 30 mg Capsule] 30 mg PO QHS 02/01/19 Diclofenac Sodium 1 gm TOP QIDP PRN 02/01/19 Duloxetine HCl [Cymbalta] 60 mg PO Q12 02/01/19 Finasteride [Proscar 5 mg Tablet] 5 mg PO QPM 02/01/19 Fluticasone Propionate [Flonase Nasal [place] 50 Mcg/[place] 16 gm] 1 spray NAREB DAILY 02/01/19 Fluticasone/Salmeterol [Advair 250-50 Diskus 14 Dose/Diskus] 1 puff IH Q12 02/01/19 Folic Acid [Folvite 1 mg Tablet] 1 mg PO QHS 02/01/19 Levetiracetam [Keppra 500 mg Tablet] 500 mg PO Q12 02/01/19 Levocetirizine Dihydrochloride [Xyzal] 5 mg PO QPM 02/01/19 Montelukast Sodium [Singulair 10 mg Tablet] 10 mg PO QHS 02/01/19 Olanzapine [Zyprexa] 20 mg PO QHS 02/01/19 Tamsulosin HCl [Flomax 0.4 mg Cap.sr] 0.4 mg PO QPM 02/01/19 Magnesium Oxide [Mag-Oxide] 500 mg PO BID 09/28/19 Ondansetron [Zofran Odt 4 mg Tablet] 8 mg PO TIDP PRN 09/28/19 Dronabinol 5 mg PO BID 12/11/19 Nitroglycerin [Nitrostat 0.4 mg (1/150 Gr) Tabs 25/Bottle] 1 tab SL Q5MP PRN 12/11/19 Oxycodone HCl 20 mg PO QIDP PRN 12/11/19 Potassium Chloride [Klor-Con M20] 20 meq PO DAILY 12/11/19 Vit/Dha [ Multi + Dha Capsule] 1 cap PO DAILY 12/11/19 Rosuvastatin Calcium 10 mg PO QHS 12/11/19 Diphenoxylate HCl/Atrop Sulf [Lomotil 2.5 mg Tablet] 1 tab PO Q6HP PRN #120 tablet 12/12/19 Prednisone [Deltasone 20 mg Tablet] 60 mg PO DAILY #21 tablet 12/12/19 Promethazine HCl 12.5 mg PO Q6HP PRN #60 tablet 12/12/19 History of Present Illiness History of Present Illness: LAKSHMI ALAMO is a 64 year old male, He has a history of stage IV recurrent lung cancer on chemotherapy he came to the emergency room for evaluation of vomiting and diarrhea. He apparently is on Keytruda according to the record for couple of months, GI side effects is a complication of the medication.CAT scan of the abdomen and pelvis with IV contrast was obtained in the emergency room, it demonstrated large amount of stool throughout the colon and rectum there was no other significant findings, no evidence of colitis on the CAT scan.He was seen by the oncologist he was given a dose of intravenous glucocorticoid, Solu- Medrol, the oncologist felt the GI symptoms is probably from the chemotherapeutic agent that patient is receiving for his lung cancer.Patient unfortunately continues to smoke tobacco despite stage IV lung cancer, recurrent, I see him on the floor, he will stay for 24 hours for hydration and symptom control Hospital Course Hospital Course: Patient was admitted for the management of acute GI symptoms, vomiting and diarrhea, suspected to be from chemotherapeutic agent that he uses for his lung cancer. He was seen by treating oncologist, he recommended that patient uses prednisone, the CAT scan that was obtained did not demonstrate any acute pathology other than extensive stool in the large intestine and rectum. Patient is presently symptom-free he was to be discharged home, I agree patient could be discharged home since he is presently asymptomatic, there is no abdominal pain there is no vomiting there is no diarrhea, is prescribed Lomotil to use as needed for diarrhea and also Phenergan to use as needed for vomiting and nausea Physical Exam Vital Signs: Temp Pulse Resp BP Pulse Ox 98.2 F 102 H 15 119/62 93 12/12/19 15:03 12/12/19 15:03 12/12/19 15:03 12/12/19 15:03 12/12/19 15:03 Intake & Output 12/11/19 12/12/19 12/13/19 06:59 06:59 06:59 Intake Total 3100 1200 Balance 3100 1200 Weight 72.1 kg General appearance: PRESENT: no acute distress Eye exam: PRESENT: PERRLA Respiratory exam: PRESENT: clear to auscultation todd Cardiovascular exam: PRESENT: +S1, +S2 GI/Abdominal exam: PRESENT: soft Neurological exam: PRESENT: alert Results Laboratory Results: WBC 6.8 10^3/uL (4.0-10.5) 12/12/19 05:55 RBC 2.90 10^6/uL (4.35-5.55) L 12/12/19 05:55 Hgb 9.8 g/dL (13.5-17.0) L 12/12/19 05:55 Hct 28.4 % (37.9-51.0) L 12/12/19 05:55 MCV 98 fl (80-97) H 12/12/19 05:55 MCH 33.9 pg (27.0-33.4) H 12/12/19 05:55 MCHC 34.6 g/dL (32.0-36.0) 12/12/19 05:55 RDW 14.5 % (11.5-14.0) H 12/12/19 05:55 Plt Count 298 10^3/uL (150-450) 12/12/19 05:55 Lymph % (Auto) 9.9 % (13-45) L 12/12/19 05:55 [place] % (Auto) 7.4 % (3-13) 12/12/19 05:55 Eos % (Auto) 0.0 % (0-6) 12/12/19 05:55 Baso % (Auto) 0.3 % (0-2) 12/12/19 05:55 Absolute Neuts (auto) 5.6 10^3/uL (1.7-8.2) 12/12/19 05:55 Absolute Lymphs (auto) 0.7 10^3/uL (0.5-4.7) 12/12/19 05:55 Absolute Monos (auto) 0.5 10^3/uL (0.1-1.4) 12/12/19 05:55 Absolute Eos (auto) 0.0 10^3/uL (0.0-0.6) 12/12/19 05:55 Absolute Basos (auto) 0.0 10^3/uL (0.0-0.2) 12/12/19 05:55 Seg Neutrophils % 82.4 % (42-78) H 12/12/19 05:55 PT 14.5 SEC (11.4-15.4) 12/11/19 18:22 INR 1.13 12/11/19 18:22 APTT 33.2 SEC (23.5-35.8) 12/11/19 18:22 Sodium 133.1 mmol/L (137-145) L 12/11/19 18:22 Potassium 3.9 mmol/L (3.6-5.0) 12/11/19 18:22 Chloride 100 mmol/L (98-107) 12/11/19 18:22 Carbon Dioxide 25 mmol/L (22-30) 12/11/19 18:22 Anion Gap 8 (5-19) 12/11/19 18:22 BUN 9 mg/dL (7-20) 12/11/19 18:22 Creatinine 0.48 mg/dL (0.52-1.25) L 12/11/19 18:22 Est GFR ( Amer) > 60 (>60) 12/11/19 18:22 Est GFR (MDRD) Non-Af > 60 (>60) 12/11/19 18:22 Glucose 124 mg/dL (75-110) H 12/11/19 18:22 Hemoglobin A1c % 5.8 % (4.7-6.0) 12/12/19 05:55 Lactic Acid 2.3 mmol/L (0.7-2.1) H 12/11/19 10:48 Calcium 8.2 mg/dL (8.4-10.2) L 12/11/19 18:22 Phosphorus 2.3 mg/dL (2.5-4.5) L 12/11/19 18:22 Magnesium 1.5 mg/dL (1.6-2.3) L 12/11/19 18:22 Total Bilirubin 0.2 mg/dL (0.2-1.3) 12/12/19 05:55 Direct Bilirubin 0.0 mg/dL (0.0-0.4) 12/12/19 05:55 Neonat Total Bilirubin Not Reportable 12/12/19 05:55 Neonat Direct Bilirubin Not Reportable 12/12/19 05:55 Neonat Indirect Bili Not Reportable 12/12/19 05:55 AST 18 U/L (17-59) 12/12/19 05:55 ALT 12 U/L (<50) 12/12/19 05:55 Alkaline Phosphatase 45 U/L (38-126) 12/12/19 05:55 Ammonia < 8.7 umol/L (9-33) L 12/11/19 18:22 Creatine Kinase 88 U/L (55-170) 12/12/19 05:55 CK-MB (CK-2) 1.03 ng/mL (<4.55) 12/12/19 05:55 Troponin I 0.013 ng/mL 12/12/19 05:55 NT-Pro-B Natriuret Pep 153 pg/mL (<125) H 12/11/19 18:22 Total Protein 4.8 g/dL (6.3-8.2) L 12/12/19 05:55 Albumin 2.8 g/dL (3.5-5.0) L 12/12/19 05:55 Amylase < 30 U/L (30-110) L 12/11/19 18:22 Lipase < 10.0 U/L (23-300) L 12/11/19 18:22 TSH 0.62 uIU/mL (0.47-4.68) 12/11/19 18:22 Free T4 1.18 ng/dL (0.78-2.19) 12/11/19 18:22 Urine Color YELLOW 12/11/19 12:52 Urine Appearance CLEAR 12/11/19 12:52 Urine pH 6.0 (5.0-9.0) 12/11/19 12:52 Ur Specific [place] 1.009 12/11/19 12:52 Urine Protein NEGATIVE mg/dL (NEGATIVE) 12/11/19 12:52 Urine Glucose (UA) NEGATIVE mg/dL (NEGATIVE) 12/11/19 12:52 Urine Ketones NEGATIVE mg/dL (NEGATIVE) 12/11/19 12:52 Urine Blood NEGATIVE (NEGATIVE) 12/11/19 12:52 Urine Nitrite (Reflex) NEGATIVE (NEGATIVE) 12/11/19 12:52 Urine Bilirubin NEGATIVE (NEGATIVE) 12/11/19 12:52 Urine Urobilinogen NEGATIVE mg/dL (<2.0) 12/11/19 12:52 Leukocyte Esterase Rfl NEGATIVE (NEGATIVE) 12/11/19 12:52 Urine RBC (Auto) 1 /HPF 12/11/19 12:52 Urine WBC (Reflex) 1 /HPF 12/11/19 12:52 Urine Mucus (Auto) RARE /LPF 12/11/19 12:52 Urine Ascorbic Acid NEGATIVE (NEGATIVE) 12/11/19 12:52 Stool for White Cells NO WBCs SEEN 12/11/19 13:26 Stl C. Difficile GDH Ag NEGATIVE (NEGATIVE) 12/11/19 13:26 Stl C.difficile Tox A&B NEGATIVE (NEGATIVE) 12/11/19 13:26 Urine Opiates Screen UNCONFIRMED POSITIVE 12/11/19 12:52 Urine Methadone Screen NEGATIVE 12/11/19 12:52 Ur Barbiturates Screen NEGATIVE 12/11/19 12:52 Ur Phencyclidine Scrn NEGATIVE 12/11/19 12:52 Ur Amphetamines Screen NEGATIVE 12/11/19 12:52 U Benzodiazepines Scrn NEGATIVE 12/11/19 12:52 Urine Cocaine Screen NEGATIVE 12/11/19 12:52 U Marijuana (THC) Screen NEGATIVE 12/11/19 12:52 12/11/19 12/11/19 12/12/19 18:22 18:22 00:23 CK-MB (CK-2) 1.46 1.20 Troponin I 0.013 0.012 NT-Pro-B Natriuret Pep 153 H 12/12/19 05:55 CK-MB (CK-2) 1.03 Troponin I 0.013 NT-Pro-B Natriuret Pep Impressions: Abdomen/Pelvis CT 12/11/19 12:36 IMPRESSION: LARGE AMOUNT OF STOOL THROUGHOUT THE COLON AND RECTUM. NO OTHER SIGNIFICANT OR ACUTE FINDING IN THE ABDOMEN OR PELVIS ON CT SCAN WITH IV CONTRAST. Stroke Is this a Stroke Patient?: No Acute Heart Failure - Is this a Heart Failure Patient?: No
[2019-12-12] MEDS ORDERED: FINASTERIDE 5 MG TABLET PO SCH (18:00)
[2019-12-12] MEDS ORDERED: CETIRIZINE 10 MG TABLET PO SCH (18:00)
[2019-12-12] MEDS ORDERED: TAMSULOSIN HCL 0.4 MG CAP.SR.24H PO SCH (18:00)
[2019-12-12] MEDS ORDERED: CLOPIDOGREL BISULFATE 75 MG TABLET PO SCH (22:00)
[2019-12-12] MEDS ORDERED: FOLIC ACID 1 MG TABLET PO SCH (22:00)
[2019-12-12] MEDS ORDERED: ATORVASTATIN CALCIUM 20 MG TABLET PO SCH (22:00)
[2019-12-12] MEDS ORDERED: OLANZAPINE 5 MG TABLET PO SCH (22:00)
[2019-12-12] MEDS ORDERED: MONTELUKAST SODIUM 10 MG TABLET PO SCH (22:00)
[2019-12-12] MEDS ORDERED: PANTOPRAZOLE SODIUM 20 MG TABLET.DR PO SCH (22:00)
[2019-12-12] MEDS ORDERED: ASPIRIN 81 MG TABLET, ENT COATED PO SCH (22:00)
== END 2019-12-12 15:30 | disposition home or self-care (01) | DRG 394 ==
LOC: ER 09:49 → EH 15:40 → 3W 17:25
PROVIDERS: ADMIT Internal Medicine; ATTEND Internal Medicine
DX: K52.1 Toxic gastroenteritis and colitis (principal); C34.91 Malignant neoplasm of unspecified part of right bronchus or lung; T45.1X5A Adverse effect of antineoplastic and immunosuppressive drugs, initial encounter; K52.9 Noninfective gastroenteritis and colitis, unspecified; I25.10 Atherosclerotic heart disease of native coronary artery without angina pectoris; E78.5 Hyperlipidemia, unspecified; I10 Essential (primary) hypertension; I73.9 Peripheral vascular disease, unspecified; M19.90 Unspecified osteoarthritis, unspecified site; F32.9 Major depressive disorder, single episode, unspecified; F17.210 Nicotine dependence, cigarettes, uncomplicated; Z79.51 Long term (current) use of inhaled steroids; Z79.899 Other long term (current) drug therapy; I25.2 Old myocardial infarction; Z88.0 Allergy status to penicillin; Z90.49 Acquired absence of other specified parts of digestive tract; Z79.02 Long term (current) use of antithrombotics/antiplatelets
CPT/HCPCS: 36415; 74177; 80053; 80076; 80307; 81001; 82140; 82150; 82550; 82553; 83036; 83605; 83690; 83735; 83880; 84100; 84439; 84443; 84484; 85025; 85610; 85730; 87040; 87045; 87086; 87205; 87324; 87449; 89055; 93005; 93010; 94640; 96360; 96361; 96372; 99285; A9270-GY; J1650; J2550; J2930; J3490; J7030; J7120; J7512; J7620

== ENCOUNTER 2020-03-19 13:39 | Inpatient (IN) | payer MEDICARE ==
[2020-03-19] MEDS ORDERED: NORMAL SALINE 250 ML with FUROSEMIDE 250 MG IV PRN ×2 (15:09)
--- NOTE | 2020-03-19 15:25 | RADIOLOGY REPORT (SQ) ---
EXAM DESCRIPTION: CHEST SINGLE VIEW IMAGES COMPLETED DATE/TIME: 03/19/2020 2:58 pm REASON FOR STUDY: lung cancer COMPARISON: AP view of the chest from 09/27/[address] of the chest with contrast from 01/15/2020. EXAM PARAMETERS: NUMBER OF VIEWS: One view. TECHNIQUE: An AP view of the chest was obtained. RADIATION DOSE: NA LIMITATIONS: None. FINDINGS: LUNGS AND PLEURA: Chronic pleural thickening and interstitial opacities in the mid to supe rior aspect of the right hemithorax and chronic interstitial opacities in the lingula. There is no a cute consolidation, sizeable pleural effusion or pneumothorax. MEDIASTINUM AND HILAR STRUCTURES: Stable mediastinal and hilar contours. HEART AND VASCULAR STRUCTURES: The cardiac silhouette and pulmonary vasculature are within normal agrawal its. BONES: No acute findings. HARDWARE: The tip of the right upper extremity PICC projects within the right brachiocephalic vein. OTHER: Emphysema. IMPRESSION: Chronic findings as detailed above. There is no acute cardiopulmonary process. TECHNICAL DOCUMENTATION: JOB ID: [id number] 2010 [employer]- All Rights Reserved Reading location - IP/workstation name: [email or web address]
[2020-03-19 15:30] LABS: ABSOLUTE BASOPHILS # (AUTO) 0.1 10^3/uL (0.0-0.2); ABSOLUTE EOSINOPHILS # (AUTO) 0.2 10^3/uL (0.0-0.6); ABSOLUTE LYMPHOCYTES (AUTO) 0.8 10^3/uL (0.5-4.7); ABSOLUTE MONOCYTES (AUTO) 1.1 10^3/uL (0.1-1.4); ABSOLUTE NEUT (AUTO) 6.2 10^3/uL (1.7-8.2); BASOPHILS % (AUTO) 0.9 % (0-2); EOSINOPHILS % (AUTO) 2.9 % (0-6); HEMATOCRIT 37.5 % (37.9-51.0); HEMOGLOBIN 12.8 g/dL (13.5-17.0); LYMPHOCYTES % (AUTO) 9.8 % (13-45); MEAN CORPUSCULAR HEMOGLOBIN 33.3 pg (27.0-33.4); MEAN CORPUSCULAR VOLUME 98 fl (80-97); MONOCYTES % (AUTO) 12.8 % (3-13); PLATELET COUNT 311 10^3/uL (150-450); RED BLOOD COUNT 3.83 10^6/uL (4.35-5.55); SEGMENTED NEUTROPHILS % (AUTO) 73.6 % (42-78); TOTAL CELLS COUNTED % (AUTO) 100 %; WHITE BLOOD COUNT 8.4 10^3/uL (4.0-10.5)
[2020-03-19 15:46] LABS: ALBUMIN 3.4 g/dL (3.5-5.0); ALKALINE PHOSPHATASE 98 U/L (38-126); ANION GAP 7 (5-19); ASPARTATE AMINO TRANSFERASE 30 U/L (17-59); BILIRUBIN,TOTAL 0.4 mg/dL (0.2-1.3); BLOOD UREA NITROGEN 7 mg/dL (7-20); CALCIUM 8.6 mg/dL (8.4-10.2); CARBON DIOXIDE 36 mmol/L (22-30); CHLORIDE 90 mmol/L (98-107); CREATINE KINASE 63 U/L (55-170); GLUCOSE 136 mg/dL (75-110); POTASSIUM 3.5 mmol/L (3.6-5.0); TOTAL PROTEIN 6.1 g/dL (6.3-8.2)
[2020-03-19 15:57] LABS: CREATINE KINASE MB 1.58 ng/mL (<4.55); TROPONIN I 0.014 ng/mL
--- NOTE | 2020-03-19 17:20 | PDOC H&P ---
History of Present Illness Admission Date/PCP: 03/19/20 13:39 BARBER COLLADO MD History of Present Illness: LAKSHMI ALAMO is a 64 year old male,He has a history of recurrent lung cancer, COPD, a recalcitrant smoker, he continues to smoke despite lung cancer on active chemotherapy, he came to the office today for evaluation of severe bilateral leg swelling, shortness of breath, in the office he was evaluated he has tremendous bilateral edema up to the thighs, he was audibly wheezing bilaterally on auscultation of his lungs and he has JVD because of all these findings I felt patient needed to be admitted to the hospital for treatment.Transthoracic echocardiogram was done the left ventricle is normal wall thickness, estimated ejection fraction 65%, Doppler measurements suggest impaired left ventricular relaxation which is associated with grade 1/4 or mild diastolic dysfunction the pulmonary pressure could not be measured,Because the tricuspid regurgitation jet envelope was not well defined to measure right ventricular systolic pressure accurately Lungs are hyperinflated and hyperlucent from obstructive disease, there is bandlike scarring along the anterior aspect of the right upper lobe adjacent to the second, third, and fourth ribs. Past Medical History Cardiac Medical History: Reports: Coronary Artery Disease, Myocardial Infarction - x3, most recent 1997, Hyperlipidema, Hypertension, Peripheral Vascular Disease Pulmonary Medical History: Reports: Bronchitis, Chronic Obstructive Pulmonary Disease (COPD), Pneumonia, Sleep Apnea Neurological Medical History: Reports: Migraine, Seizures - brain injury Malignancy Medical History: Reports: Lung Cancer Musculoskeltal Medical History: Reports: Arthritis Psychiatric Medical History: Reports: Depression Denies: Bipolar Disorder, Post Traumatic Stress Disorder Hematology: Denies: Anemia Past Surgical History Past Surgical History: Reports: Cardiac Catheterization - Stent 2, Cho lecystectomy Social History Smoking Status: Current Every Day Smoker Cigarettes Packs Per Day: 2 Electronic Cigarette use?: No Number of Years Smokin Last Time Smoked: 03/19/20 Frequency of Alcohol Use: None Hx Recreational Drug Use: No Drugs: None Hx Prescription Drug Abuse: No Family History Family History: Reviewed & Not Pertinent Parental Family History Reviewed: Yes Children Family History Reviewed: Yes Sibling(s) Family History Reviewed.: Yes Medication/Allergy Home Medications: RX: Albuterol Sulfate [Proair HFA Inhalation Aerosol 8.5 gm MDI] 2 puff IH Q4HP PRN 02/01/19 RX: Aspirin [Ecotrin 81 mg EC Tablet] 81 mg PO QHS 02/01/19 RX: Butalb/Acetaminophen/Caffeine [Fioricet (50-325-40 mg) Tablet] 1 tab PO Q4HP PRN 02/01/19 RX: Clopidogrel Bisulfate [Plavix 75 mg Tablet] 75 mg PO QHS 02/01/19 RX: Dexlansoprazole [Dexilant 30 mg Capsule] 30 mg PO QHS 02/01/19 RX: Diclofenac Sodium 1 gm TOP QIDP PRN 02/01/19 RX: Duloxetine HCl [Cymbalta] 60 mg PO Q12 02/01/19 RX: Finasteride [Proscar 5 mg Tablet] 5 mg PO QPM 02/01/19 RX: Fluticasone Propionate [Flonase Nasal [place] 50 Mcg/[place] 16 gm] 1 spray NAREB DAILY 02/01/19 RX: Fluticasone/Salmeterol [Advair 250-50 Diskus 14 Dose/Diskus] 1 puff IH Q12 02/01/19 RX: Folic Acid [Folvite 1 mg Tablet] 1 mg PO QHS 02/01/19 RX: Levetiracetam [Keppra 500 mg Tablet] 500 mg PO Q12 02/01/19 RX: Levocetirizine Dihydrochloride [Xyzal] 5 mg PO QPM 02/01/19 RX: Montelukast Sodium [Singulair 10 mg Tablet] 10 mg PO QHS 02/01/19 RX: Olanzapine [Zyprexa] 20 mg PO QHS 02/01/19 RX: Tamsulosin HCl [Flomax 0.4 mg Cap.sr] 0.4 mg PO QPM 02/01/19 RX: Magnesium Oxide [Mag-Oxide] 500 mg PO BID 09/28/19 RX: Ondansetron [Zofran Odt 4 mg Tablet] 8 mg PO TIDP PRN 09/28/19 RX: Dronabinol 5 mg PO BID@07,12 12/11/19 RX: Nitroglycerin [Nitrostat 0.4 mg (1/150 Gr) Tabs 25/Bottle] 1 tab SL Q5MP PRN 12/11/19 RX: Potassium Chloride [Klor-Con M20] 20 meq PO DAILY 12/11/19 RX: Vit/Dha [ Multi + Dha Capsule] 1 cap PO DAILY 12/11/19 RX: Rosuvastatin Calcium 10 mg PO QHS 12/11/19 RX: Diphenoxylate HCl/Atrop Sulf [Lomotil 2.5 mg Tablet] 1 tab PO Q6HP PRN #120 tablet 12/12/19 RX: Promethazine HCl 12.5 mg PO Q6HP PRN #60 tablet 12/12/19 Megestrol Acetate [Megace 20 mg Tablet] 80 mg PO DAILY 03/19/20 RX: Hydromorphone HCl [Dilaudid] 8 mg PO Q6HP PRN 03/19/20 RX: Trihexyphenidyl HCl [Artane 2 mg Tablet] 2 mg PO Q12 03/19/20 Tiotropium [place] [Spiriva [place] 5 Cap/Kit (18 Mcg/Cap)] 1 cap IH DAILY 03/19/20 Allergies/Adverse Reactions: Penicillins Allergy (Verified 12/11/19 10:03) Review of Systems Constitutional: ABSENT: chills, fever(s), headache(s), weight gain, weight loss Eyes: ABSENT: visual disturbances Ears: ABSENT: hearing changes Cardiovascular: PRESENT: dyspnea on exertion, edema. ABSENT: chest pain, orthropnea, palpitations Respiratory: PRESENT: cough, dyspnea. ABSENT: hemoptysis Gastrointestinal: ABSENT: abdominal pain, constipation, diarrhea, hematemesis, hematochezia, nausea, vomiting Genitourinary: ABSENT: dysuria, hematuria Musculoskeletal: ABSENT: joint swelling Integumentary: ABSENT: rash, wounds Neurological: ABSENT: abnormal gait, abnormal speech, confusion, dizziness, focal weakness, syncope Psychiatric: ABSENT: anxiety, depression, homidical ideation, suicidal ideation Endocrine: ABSENT: cold intolerance, heat intolerance, menstrual abnormalities, polydipsia, polyuria Hematologic/Lymphatic: ABSENT: easy bleeding, easy bruising, lymphadenopathy Physical Exam Vital Signs: Temp Pulse Resp BP Pulse Ox 98.5 F 89 18 113/71 92 03/19/20 16:55 03/19/20 16:55 03/19/20 16:55 03/19/20 16:55 03/19/20 16:55 Intake & Output 03/18/20 03/19/20 03/20/20 06:59 06:59 06:59 Weight 71.9 kg General appearance: PRESENT: mild distress Head exam: PRESENT: atraumatic, normocephalic Eye exam: PRESENT: PERRLA Neck exam: PRESENT: full ROM Respiratory exam: PRESENT: retraction, wheezes Cardiovascular exam: PRESENT: RRR, +S1, +S2 Vascular exam: PRESENT: normal capillary refill GI/Abdominal exam: PRESENT: normal bowel sounds, soft Rectal exam: PRESENT: deferred Extremities exam: PRESENT: pedal edema, other - Lower extremity edema up to mid thigh Neurological exam: PRESENT: alert, CN II-XII grossly intact Psychiatric exam: PRESENT: appropriate affect, normal mood Skin exam: PRESENT: dry, intact, warm Results Laboratory Results: 03/19/20 14:37 03/19/20 14:37 03/19/20 03/19/20 14:37 14:37 WBC 8.4 RBC 3.83 L Hgb 12.8 L Hct 37.5 L MCV 98 H MCH 33.3 MCHC 34.0 RDW 14.0 Plt Count 311 Seg Neutrophils % 73.6 Sodium 132.5 L Potassium 3.5 L Chloride 90 L Carbon Dioxide 36 H Anion Gap 7 BUN 7 Creatinine 0.73 Est GFR ( Amer) > 60 Glucose 136 H Calcium 8.6 Total Bilirubin 0.4 AST 30 Alkaline Phosphatase 98 Total Protein 6.1 L Albumin 3.4 L 03/19/20 03/19/20 14:37 14:37 Creatine Kinase 63 CK-MB (CK-2) 1.58 Troponin I 0.014 NT-Pro-B Natriuret Pep 501 H Impressions: Chest X-Ray 03/19/20 00:00 IMPRESSION: Chronic findings as detailed above. There is no acute cardiopulmonary process. Assessment & Plan - Diagnosis (1) Acute exacerbation of chronic obstructive pulmonary disease (COPD) Is this a current diagnosis for this admission?: Yes Plan: Patient is audibly wheezing on auscultation of the chest with retraction of accessory muscles of breathing, start intravenous Solu-Medrol, 125 mg IV every 8, bronchodilators with DuoNeb every 4-6 hours as needed (2) Pulmonary hypertension Is this a current diagnosis for this admission?: Yes Plan: The lower extremity edema is most likely from pulmonary hypertension, unfortunately the transthoracic echocardiogram, the pulmonary pressure could not be measured because of the poor tricuspid regurgitation jet. He will be claudia pierce with low-dose Lasix infusion, 2 mg/h this is somewhat tricky because Volume is needed to overcome the increased pulmonary pressure, loss of volume from diuretic use could trigger hypotension (3) Nicotine dependence, cigarettes, uncomplicated Is this a current diagnosis for this admission?: Yes Plan: Patient continues to smoke very heavily despite lung cancer on active chemotherapy the CT chest did not demonstrate any mass suggesting patient is responding to chemotherapy (4) Stage 4 lung cancer Qualifiers: Laterality: unspecified laterality Qualified Code(s): C34.90 - Malignant neoplasm of unspecified part of unspecified bronchus or lung
[2020-03-19 18:28] LABS: APPEARANCE,URINE CLEAR; BILIRUBIN,URINE NEGATIVE (NEGATIVE); COLOR,URINE YELLOW; GLUCOSE, URINE NEGATIVE (NEGATIVE); KETONES,URINE NEGATIVE (NEGATIVE); LEUKOCYTE ESTERASE,URINE NEGATIVE (NEGATIVE); NITRITE,URINE NEGATIVE (NEGATIVE); PROTEIN,URINE NEGATIVE (NEGATIVE); URINE SPECIFIC GRAVITY 1.003; UROBILINOGEN,URINE NEGATIVE mg/dL (<2.0)
[2020-03-19] MEDS ORDERED: IPRATROPIUM/ALBUTEROL 0.5-2.5 MG/3 ML AMPUL NEB PRN (19:44)
[2020-03-19] MEDS ORDERED: (PENDING PHARMACY ID) (Fluticasone/Salmeterol 1 PUFF) IH SCH (19:45)
[2020-03-19] MEDS ORDERED: IPRATROPIUM/ALBUTEROL 0.5-2.5 MG/3 ML AMPUL NEB SCH (20:00)
[2020-03-19] MEDS ORDERED: HYDROMORPHONE HCL 2 MG TABLET PO PRN (20:00)
[2020-03-19] MEDS: BUTALB/ACETAMINOPHEN/CAFFEINE 1 TAB EACH PO PRN (20:28)
[2020-03-19] MEDS: FLUTICASONE/VILANTEROL 200-25 MCG/DOSE IH SCH (21:31)
[2020-03-19] MEDS: ENOXAPARIN SODIUM INJ 40 MG/0.4 ML DISP.SYRIN SUBCUT SCH (21:35)
[2020-03-19] MEDS: DRONABINOL 2.5 MG CAPSULE PO SCH (21:35)
[2020-03-19] MEDS: METHYLPREDNISOLONE INJ 125 MG/2 ML SDV IV SCH (21:35)
[2020-03-19] MEDS: PRENATAL VITAMIN W DHA CAPSULE PO SCH (21:36)
[2020-03-19] MEDS: OLANZAPINE 5 MG TABLET PO SCH (21:36)
[2020-03-19] MEDS: TRIHEXYPHENIDYL HCL 2 MG TABLET PO SCH (21:36)
[2020-03-19] MEDS: TAMSULOSIN HCL 0.4 MG CAP.SR.24H PO SCH (21:36)
[2020-03-19] MEDS: FOLIC ACID 1 MG TABLET PO SCH (21:36)
[2020-03-19] MEDS: LEVETIRACETAM 500 MG TABLET PO SCH (21:36)
[2020-03-19] MEDS: DULOXETINE HCL 30 MG CAPSULE.DR PO SCH (21:36)
[2020-03-19] MEDS: FINASTERIDE 5 MG TABLET PO SCH (21:36)
[2020-03-19] MEDS: PANTOPRAZOLE SODIUM 20 MG TABLET.DR PO SCH (21:36)
[2020-03-19] MEDS: CETIRIZINE 5 MG TABLET PO SCH (21:36)
[2020-03-19] MEDS: ATORVASTATIN CALCIUM 20 MG TABLET PO SCH (21:36)
[2020-03-19] MEDS ORDERED: (PENDING PHARMACY ID) (Rosuvastatin Calcium [Rosuvastatin Calcium] 10 MG) PO SCH (22:00)
[2020-03-19] MEDS ORDERED: (PENDING PHARMACY ID) (Dexlansoprazole [Dexilant 30 Mg Capsule] 30 MG) PO SCH (22:00)
--- NOTE | 2020-03-19 22:01 | RADIOLOGY REPORT (SQ) ---
US LOWER EXTREMITY VEINS HISTORY: Leg pain and swelling. COMPARISON: None. TECHNIQUE: Tovar-scale, color Doppler and spectral Doppler images of the bilateral lower extremity veins were obtained. FINDINGS: RIGHT: The right common femoral, superficial femoral and popliteal veins are patent and compressible. Normal augmentation and color Doppler blood flow in the aforementioned veins. The visualized calf veins are also patent. Diffuse subcutaneous edema is present. LEFT: The left common femoral, superficial femoral and popliteal veins are patent and compressible. Normal augmentation and color Doppler blood flow in the aforementioned veins. The visualized calf veins are also patent. Diffuse subcutaneous edema is present. IMPRESSION: No DVT in the bilateral lower extremities.
[2020-03-19 22:54] LABS: CREATINE KINASE MB 1.26 ng/mL (<4.55)
[2020-03-19 22:55] LABS: TROPONIN I < 0.012 ng/mL
[2020-03-20] MEDS: METHYLPREDNISOLONE INJ 125 MG/2 ML SDV IV SCH ×3 (05:06→21:21)
[2020-03-20 07:18] LABS: CREATINE KINASE MB 1.15 ng/mL (<4.55)
[2020-03-20 07:31] LABS: TROPONIN I < 0.012 ng/mL
--- NOTE | 2020-03-20 08:01 | EKG REPORT ---
SEVERITY:- ABNORMAL ECG - SINUS RHYTHM VENTRICULAR PREMATURE COMPLEX RBBB AND LAFB : Confirmed by: Sarita Stallings MD 20-Mar-2020 08:00:40
[2020-03-20] MEDS: DRONABINOL 2.5 MG CAPSULE PO SCH ×2 (09:18→14:02)
[2020-03-20] MEDS: PRENATAL VITAMIN W DHA CAPSULE PO SCH (09:18)
[2020-03-20] MEDS: BUTALB/ACETAMINOPHEN/CAFFEINE 1 TAB EACH PO PRN ×3 (09:18→21:21)
[2020-03-20] MEDS: DULOXETINE HCL 30 MG CAPSULE.DR PO SCH ×2 (09:18→21:19)
[2020-03-20] MEDS: LEVETIRACETAM 500 MG TABLET PO SCH ×2 (09:19→21:19)
[2020-03-20] MEDS: ENOXAPARIN SODIUM INJ 40 MG/0.4 ML DISP.SYRIN SUBCUT SCH (09:19)
[2020-03-20] MEDS: FLUTICASONE/VILANTEROL 200-25 MCG/DOSE IH SCH (09:19)
[2020-03-20] MEDS: TRIHEXYPHENIDYL HCL 2 MG TABLET PO SCH ×2 (09:19→21:20)
--- NOTE | 2020-03-20 10:00 | RADIOLOGY REPORT (SQ) ---
EXAM DESCRIPTION: CT CHEST WITH IMAGES COMPLETED DATE/TIME: 03/20/2020 9:36 am REASON FOR STUDY: lung cancer COMPARISON: CT chest 03/12/2014, 12/16/2017, 08/13/2019, 09/27/2019, 10/25/2019, 01/15/2020 TECHNIQUE: CT scan of the chest performed using helical scanning technique with dynamic intravenous contrast injection. Images reviewed with lung, soft tissue and bone windows. Reconstructed coronal and sagittal MPR and MIP images reviewed. All images stored on PACS. All CT scanners at this facility use dose modulation, iterative reconstruction, and/or weight based d osing when appropriate to reduce radiation dose to as low as reasonably achievable (ALARA). [facility]: Dose Right [facility]: CareDose [facility]: Dose Right [facility]: Teradose 4D [facility]: CuPcAkE & other things you bake CONTRAST TYPE AND DOSE: 100 mL IV Omnipaque 350- low osmolar. RENAL FUNCTION: Creatinine 0.7 RADIATION DOSE: CT Rad equipment meets quality standard of care and radiation dose reduction techniq ues were employed. CTDIvol: 8.2 mGy. DLP: 325 mGy-cm. . LIMITATIONS: None. FINDINGS: LUNGS AND PLEURA: Old left lower lobectomy. Lungs are hyperinflated and hyperlucent from obstructive disease. There is bandlike scarring along the anterior aspect of the right upper lobe adjacent to the 2nd 3rd and 4th ribs. This is stable. No pleural effusion. No pneumothorax HILAR AND MEDIASTINAL STRUCTURES: No identified masses or abnormal nodes. HEART AND VASCULAR STRUCTURES: No aneurysm or dissection. No central pulmonary emboli. No pericardi al effusion. Coronary artery stents or calcifications are present HARDWARE: Right-sided permanent central line looped in the superior vena cava, best shown on coronal images 42-47 UPPER ABDOMEN: Post cholecystectomy THYROID AND OTHER SOFT TISSUES: There is a pleural thickening and soft tissue along the anterior righ t 3rd and 4th ribs with rib demineralization and stable pathologic 4th rib fracture. These findings are similar compared to 01/15/2020, best shown on axial images 21-29. BONES: No significant finding. OTHER: No other significant finding. IMPRESSION: Stable right upper chest wall pleural thickening, rib demineralization and pathologic an terior right 4th rib fracture. Old left lower lobectomy Post cholecystectomy TECHNICAL DOCUMENTATION: JOB ID: [id number] Quality ID # [id number]: Final reports with documentation of one or more dose reduction techniques (e.g., Au tomated exposure control, adjustment of the mA and/or kV according to patient size, use of iterative reconstruction technique) [address] [employer] [address] [address]- All Rights Reserved Reading location - IP/workstation name: [email or web address]
--- NOTE | 2020-03-20 17:23 | XCELERA REPORT ---
[address] [address] Transthoracic Echocardiogram Report Name: LAKSHMI ALAMO Age: 64 yrs Gender: Male : 1955 Patient Status: Inpatient Patient Location: [address] [place], [place] [id number] Study Date: 03/19/2020 05:34 PM Height: 66 in Weight: 159 lb BSA: 1.8 m2 Procedure: A two-dimensional transthoracic echocardiogram with color flow and Doppler was performed. Study Quality: Good. Reason For Study: CHF History: CHF. Ordering Physician: AYDEE SAUCEDA Performed By: Zoila Villalobos Interpretation Summary The left ventricle is normal in size. There is normal left ventricular wall thickness. LV EF is 65% Left ventricular systolic function is normal. Doppler measurements suggest impaired left ventricular relaxation, which is associated with grade I/IV or mild diastolic dysfunction The left ventricular wall motion is normal. There is no thrombus. No ASD,VSD,or PFO seen. The right atrium is normal. The left atrial size is normal. There is no evidence of mitral valve prolapse. There is no vegetation seen on the mitral valve. There is no mitral valve stenosis. There is a trace amount of mitral regurgitation There is no aortic valvular vegetation. There is no aortic valve stenosis There is no LVOT obstruction. No aortic regurgitation is present. There is no tricuspid stenosis. There is a trace amount of tricuspid regurgitation Tricuspid regurgitation jet envelope not well defined to measure RV systolic pressure accurately. There is no pulmonic valvular stenosis. There is no pulmonic valvular regurgitation. The aortic root is normal size. The inferior vena cava appeared normal and decreased > 50% with respiration (RAP 5-10 mmHg) There is no pericardial effusion. MMode/2D Measurements & Calculations RVDd: 2.8 cm LVIDd: 5.3 cm FS: 36.2 % Ao root diam: 2.9 cm IVSd: 0.94 cm LVIDs: 3.4 cm EDV(Teich): 137.1 ml Ao root area: 6.6 cm2 LVPWd: 0.99 cm ESV(Teich): 47.5 ml LA dimension: 3.9 cm EF(Teich): 65.4 % Doppler Measurements & Calculations MV E max juan antonio: MV P1/2t max juan antonio: Ao V2 max: LV V1 max P.6 cm/sec 95.6 cm/sec 152.0 cm/sec 6.3 mmHg MV A max juan antonio: MV P1/2t: 85.4 msec Ao max PG: LV V1 max: 80.2 cm/sec MVA(P1/2t): 2.6 cm2 9.2 mmHg 125.1 cm/sec MV E/A: 0.86 MV dec slope: 327.7 cm/sec2 MV dec time: 0.21 sec PA V2 max: MV P1/2t-pr_phl: 99.7 cm/sec 85.4 msec PA max P.0 mmHg Left Ventricle The left ventricle is normal in size. There is normal left ventricular wall thickness. LV EF is 65%. Left ventricular systolic function is normal. Doppler measurements suggest impaired left ventricular relaxation, which is associated with grade I/IV or mild diastolic dysfunction. The left ventricular wall motion is normal. There is no thrombus. No ASD,VSD,or PFO seen. Right Ventricle The right ventricle is normal in size and function. Atria The right atrium is normal. The left atrial size is normal. Mitral Valve There is no evidence of mitral valve prolapse. There is no vegetation seen on the mitral valve. There is no mitral valve stenosis. There is a trace amount of mitral regurgitation. Aortic Valve There is no aortic valvular vegetation. There is no aortic valve stenosis. There is no LVOT obstruction. No aortic regurgitation is present. Tricuspid Valve There is no tricuspid stenosis. There is a trace amount of tricuspid regurgitation. Tricuspid regurgitation jet envelope not well defined to measure RV systolic pressure accurately. Pulmonic Valve There is no pulmonic valvular stenosis. There is no pulmonic valvular regurgitation. Great Vessels The aortic root is normal size. The inferior vena cava appeared normal and decreased > 50% with respiration (RAP 5-10 mmHg). Effusions There is no pericardial effusion. : AYDEE SAUCEDA Lakshmi
[2020-03-20] MEDS: FINASTERIDE 5 MG TABLET PO SCH (17:26)
[2020-03-20] MEDS: TAMSULOSIN HCL 0.4 MG CAP.SR.24H PO SCH (17:26)
[2020-03-20] MEDS: CETIRIZINE 5 MG TABLET PO SCH (17:26)
[2020-03-20] MEDS ORDERED: DIPHENOXYLATE HCL/ATROP SULF 2.5-0.025 MG TABLET PO PRN (19:31)
[2020-03-20] MEDS ORDERED: (PENDING PHARMACY ID) (Albuterol Sulfate 2 PUFF) IH PRN (19:31)
[2020-03-20] MEDS ORDERED: ONDANSETRON 4 MG TAB.RAPDIS PO PRN (19:31)
--- NOTE | 2020-03-20 19:41 | PDOC PROGRESS REPORT ---
Subjective Progress Note for:: 03/20/20 Subjective:: Patient seen by the bedside, he said he feels better Reason For Visit: CHF,LUNG CANCER Physical Exam Vital Signs: Temp Pulse Resp BP Pulse Ox 97.5 F 108 H 18 124/63 96 03/20/20 08:43 03/20/20 14:00 03/20/20 09:58 03/20/20 08:43 03/20/20 09:58 Intake & Output 03/19/20 03/20/20 03/21/20 06:59 06:59 06:59 Intake Total 500 1051 Output Total 2050 1230 Balance -1550 -179 Weight 71.9 kg General appearance: PRESENT: no acute distress Eye exam: PRESENT: PERRLA Respiratory exam: PRESENT: decreased breath sounds Cardiovascular exam: PRESENT: +S1, +S2 GI/Abdominal exam: PRESENT: soft Extremities exam: PRESENT: pedal edema Neurological exam: PRESENT: alert, CN II-XII grossly intact Results Laboratory Results: 03/19/20 14:37 03/19/20 14:37 03/19/20 03/19/20 03/19/20 14:37 14:37 22:09 Creatine Kinase 63 53 L CK-MB (CK-2) 1.58 Troponin I 0.014 NT-Pro-B Natriuret Pep 501 H 03/19/20 03/20/20 03/20/20 22:09 06:14 06:14 Creatine Kinase 50 L CK-MB (CK-2) 1.26 1.15 Troponin I < 0.012 < 0.012 NT-Pro-B Natriuret Pep Impressions: Chest X-Ray 03/19/20 00:00 IMPRESSION: Chronic findings as detailed above. There is no acute cardiopulmon brook process. Venous Doppler Study 03/19/20 19:46 IMPRESSION: No DVT in the bilateral lower extremities. Chest CT 03/20/20 00:00 IMPRESSION: Stable right upper chest wall pleural thickening, rib demineralization and pathologic anterior right 4th rib fracture. Old left lower lobectomy Post cholecystectomy Assessment & Plan - Diagnosis (1) Acute exacerbation of chronic obstructive pulmonary disease (COPD) Is this a current diagnosis for this admission?: Yes Plan: Continue IV Solu-Medrol, continue bronchodilators (2) Pulmonary hypertension Is this a current diagnosis for this admission?: Yes Plan: Patient with less lower extremity edema, reduce Lasix infusion to 1 mg/h (3) Nicotine dependence, cigarettes, uncomplicated Is this a current diagnosis for this admission?: Yes Plan: Start nicotine patch (4) Stage 4 lung cancer Qualifiers: Laterality: unspecified laterality Qualified Code(s): C34.90 - Malignant neoplasm of unspecified part of unspecified bronchus or lung Is this a current diagnosis for this admission?: Yes - Time Time Spent with patient: 25-34 minutes Level of Care: IMCU Smoking Cessation Education: over 10 minutes Medications reviewed and adjusted accordingly: Yes
[2020-03-20] MEDS ORDERED: MAGNESIUM OXIDE 500 MG PO SCH (19:45)
[2020-03-20] MEDS ORDERED: (PENDING PHARMACY ID) (Tiotropium Bromide [Spiriva Handihaler 5 Cap/Kit (18 Mcg/Cap)] 1 CA IH SCH (19:45)
[2020-03-20] MEDS ORDERED: ALBUTEROL SULFATE HFA (90 MCG/PUFF) 200 PUFF/8.5 GM MDI IH PRN (19:59)
[2020-03-20] MEDS: ATORVASTATIN CALCIUM 20 MG TABLET PO SCH (21:19)
[2020-03-20] MEDS: PANTOPRAZOLE SODIUM 20 MG TABLET.DR PO SCH (21:19)
[2020-03-20] MEDS: ASPIRIN 81 MG TABLET, ENT COATED PO SCH (21:19)
[2020-03-20] MEDS: FLUTICASONE NASAL SPRAY 50 MCG/SPRY 120 SPRAY/16 GM NAREB SCH (21:20)
[2020-03-20] MEDS: FOLIC ACID 1 MG TABLET PO SCH (21:20)
[2020-03-20] MEDS: MONTELUKAST SODIUM 10 MG TABLET PO SCH (21:20)
[2020-03-20] MEDS: OLANZAPINE 5 MG TABLET PO SCH (21:20)
[2020-03-20] MEDS: NORMAL SALINE 250 ML with FUROSEMIDE 250 MG IV PRN ×2 (21:27)
[2020-03-20] MEDS: PHARMACY COMMUNICATION ORDER MC SCH (21:28)
[2020-03-21] MEDS: METHYLPREDNISOLONE INJ 125 MG/2 ML SDV IV SCH ×3 (05:51→22:02)
[2020-03-21] MEDS: DRONABINOL 2.5 MG CAPSULE PO SCH ×2 (06:12→12:55)
[2020-03-21] MEDS: FLUTICASONE/VILANTEROL 200-25 MCG/DOSE IH SCH (09:53)
[2020-03-21] MEDS: FLUTICASONE NASAL SPRAY 50 MCG/SPRY 120 SPRAY/16 GM NAREB SCH (09:54)
[2020-03-21] MEDS: UMECLIDINIUM BROMIDE 62.5 MCG/DOSE IH SCH (09:54)
[2020-03-21] MEDS: BUTALB/ACETAMINOPHEN/CAFFEINE 1 TAB EACH PO PRN ×2 (09:55→15:34)
[2020-03-21] MEDS: MAGNESIUM OXIDE 400 MG TABLET PO SCH ×2 (09:55→18:26)
[2020-03-21] MEDS: ENOXAPARIN SODIUM INJ 40 MG/0.4 ML DISP.SYRIN SUBCUT SCH ×2 (09:55→12:30)
[2020-03-21] MEDS: DULOXETINE HCL 30 MG CAPSULE.DR PO SCH ×2 (09:55→22:02)
[2020-03-21] MEDS: TRIHEXYPHENIDYL HCL 2 MG TABLET PO SCH ×2 (09:56→22:02)
[2020-03-21] MEDS: LEVETIRACETAM 500 MG TABLET PO SCH ×2 (09:56→22:02)
[2020-03-21] MEDS: NICOTINE 21 MG/24 HR PATCH.TD24 TD SCH (09:56)
[2020-03-21] MEDS: PRENATAL VITAMIN W DHA CAPSULE PO SCH (09:57)
[2020-03-21 10:20] LABS: HEMATOCRIT 38.2 % (37.9-51.0); MEAN CORPUSCULAR HEMOGLOBIN 32.8 pg (27.0-33.4); MEAN CORPUSCULAR VOLUME 97 fl (80-97); PLATELET COUNT 299 10^3/uL (150-450); RED BLOOD COUNT 3.96 10^6/uL (4.35-5.55); RED CELL DISTRIBUTION WIDTH 14.2 % (11.5-14.0); WHITE BLOOD COUNT 10.7 10^3/uL (4.0-10.5)
[2020-03-21 10:34] LABS: ALBUMIN 3.2 g/dL (3.5-5.0); ALKALINE PHOSPHATASE 75 U/L (38-126); ANION GAP 10 (5-19); ASPARTATE AMINO TRANSFERASE 24 U/L (17-59); BILIRUBIN,DIRECT 0.1 mg/dL (0.0-0.4); BILIRUBIN,TOTAL 0.3 mg/dL (0.2-1.3); BLOOD UREA NITROGEN 12 mg/dL (7-20); CALCIUM 8.4 mg/dL (8.4-10.2); CARBON DIOXIDE 29 mmol/L (22-30); CHLORIDE 94 mmol/L (98-107); GLUCOSE 252 mg/dL (75-110); POTASSIUM 3.4 mmol/L (3.6-5.0); TOTAL PROTEIN 5.7 g/dL (6.3-8.2)
[2020-03-21 10:35] LABS: ABSOLUTE LYMPHOCYTES# (MANUAL) 0.3 10^3/uL (0.5-4.7); ABSOLUTE MONOCYTES # (MANUAL) 0.3 10^3/uL (0.1-1.4); BASOPHILS % (MANUAL) 0 % (0-2); EOSINOPHILS % (MANUAL) 0 % (0-6); LYMPHOCYTES % (MANUAL) 3 % (13-45); MONOCYTES % (MANUAL) 3 % (3-13); SEGMENTED NEUTROPHILS % (MAN) 94 % (42-78); TOTAL CELLS COUNTED 100
[2020-03-21 10:36] LABS: ANISOCYTOSIS SLIGHT; PLATELET COMMENT ADEQUATE; RBC MORPHOLOGY COMMENT NORMO-CYTIC/CHROMIC
[2020-03-21] MEDS: NORMAL SALINE 250 ML with FUROSEMIDE 250 MG IV PRN ×2 (18:25)
[2020-03-21] MEDS: PHARMACY COMMUNICATION ORDER MC SCH (18:25)
[2020-03-21] MEDS: FINASTERIDE 5 MG TABLET PO SCH (18:26)
[2020-03-21] MEDS: TAMSULOSIN HCL 0.4 MG CAP.SR.24H PO SCH (18:26)
[2020-03-21] MEDS: CETIRIZINE 5 MG TABLET PO SCH (18:26)
[2020-03-21] MEDS ORDERED: BUTALB/ACETAMINOPHEN/CAFFEINE 1 TAB EACH PO ONE ×2 (19:00→20:00)
[2020-03-21] MEDS: FOLIC ACID 1 MG TABLET PO SCH (22:02)
[2020-03-21] MEDS: MONTELUKAST SODIUM 10 MG TABLET PO SCH (22:02)
[2020-03-21] MEDS: OLANZAPINE 5 MG TABLET PO SCH (22:02)
[2020-03-21] MEDS: PANTOPRAZOLE SODIUM 20 MG TABLET.DR PO SCH (22:02)
[2020-03-21] MEDS: ASPIRIN 81 MG TABLET, ENT COATED PO SCH (22:02)
[2020-03-21] MEDS: ATORVASTATIN CALCIUM 20 MG TABLET PO SCH (22:02)
--- NOTE | 2020-03-21 22:41 | PDOC PROGRESS REPORT ---
Subjective Progress Note for:: 03/21/20 Subjective:: Patient seen by the bedside, he continues to improve on present regimen Reason For Visit: CHF,LUNG CANCER Physical Exam Vital Signs: Temp Pulse Resp BP Pulse Ox 97.9 F 94 16 116/56 L 95 03/21/20 15:57 03/21/20 20:53 03/21/20 20:53 03/21/20 15:57 03/21/20 20:53 Intake & Output 03/20/20 03/21/20 03/22/20 06:59 06:59 06:59 Intake Total 500 1918 826 Output Total 2050 3080 1025 Balance -1550 -1162 -199 Weight 71.9 kg 69.6 kg General appearance: PRESENT: no acute distress Eye exam: PRESENT: PERRLA Respiratory exam: PRESENT: clear to auscultation todd Cardiovascular exam: PRESENT: +S1, +S2 GI/Abdominal exam: PRESENT: soft Neurological exam: PRESENT: alert Results Laboratory Results: 03/21/20 09:14 03/21/20 09:14 03/21/20 03/21/20 09:14 09:14 WBC 10.7 H RBC 3.96 L Hgb 13.0 L Hct 38.2 MCV 97 MCH 32.8 MCHC 34.0 RDW 14.2 H Plt Count 299 Seg Neutrophils % Not Reportable Sodium 133.1 L Potassium 3.4 L Chloride 94 L Carbon Dioxide 29 Anion Gap 10 BUN 12 Creatinine 0.66 Est GFR ( Amer) > 60 Glucose 252 H Calcium 8.4 Total Bilirubin 0.3 AST 24 Alkaline Phosphatase 75 Total Protein 5.7 L Albumin 3.2 L 03/19/20 03/19/20 03/19/20 14:37 14:37 22:09 Creatine Kinase 63 53 L CK-MB (CK-2) 1.58 Troponin I 0.014 NT-Pro-B Natriuret Pep 501 H 03/19/20 03/20/20 03/20/20 22:09 06:14 06:14 Creatine Kinase 50 L CK-MB (CK-2) 1.26 1.15 Troponin I < 0.012 < 0.012 NT-Pro-B Natriuret Pep Impressions: Chest X-Ray 03/19/20 00:00 IMPRESSION: Chronic findings as detailed above. There is no acute cardiopulmonary process. Venous Doppler Study 03/19/20 19:46 IMPRESSION: No DVT in the bilateral lower extremities. Chest CT 03/20/20 00:00 IMPRESSION: Stable right upper chest wall pleural thickening, rib demineralization and pathologic anterior right 4th rib fracture. Old left lower lobectomy Post cholecystectomy Assessment & Plan - Diagnosis (1) Acute exacerbation of chronic obstructive pulmonary disease (COPD) Is this a current diagnosis for this admission?: Yes Plan: Continue IV Solu-Medrol, continue bronchodilators (2) Pulmonary hypertension Is this a current diagnosis for this admission?: Yes Plan: Patient with less lower extremity edema, reduce Lasix infusion to 1 mg/h (3) Nicotine dependence, cigarettes, uncomplicated Is this a current diagnosis for this admission?: Yes Plan: continue nicotine patch (4) Stage 4 lung cancer Qualifiers: Laterality: unspecified laterality Qualified Code(s): C34.90 - Malignant neoplasm of unspecified part of unspecified bronchus or lung Is this a current diagnosis for this admission?: Yes - Time Time Spent with patient: 25-34 minutes Level of Care: IMCU
[2020-03-22] MEDS: METHYLPREDNISOLONE INJ 125 MG/2 ML SDV IV SCH ×2 (06:10→13:05)
[2020-03-22] MEDS: BUTALB/ACETAMINOPHEN/CAFFEINE 1 TAB EACH PO PRN ×2 (06:10→10:06)
[2020-03-22] MEDS: DRONABINOL 2.5 MG CAPSULE PO SCH ×2 (10:00→13:05)
[2020-03-22] MEDS: NICOTINE 21 MG/24 HR PATCH.TD24 TD SCH (10:00)
[2020-03-22] MEDS: UMECLIDINIUM BROMIDE 62.5 MCG/DOSE IH SCH (10:01)
[2020-03-22] MEDS: FLUTICASONE/VILANTEROL 200-25 MCG/DOSE IH SCH (10:01)
[2020-03-22] MEDS: FLUTICASONE NASAL SPRAY 50 MCG/SPRY 120 SPRAY/16 GM NAREB SCH (10:01)
[2020-03-22] MEDS: DULOXETINE HCL 30 MG CAPSULE.DR PO SCH (10:01)
[2020-03-22] MEDS: PRENATAL VITAMIN W DHA CAPSULE PO SCH (10:02)
[2020-03-22] MEDS: TRIHEXYPHENIDYL HCL 2 MG TABLET PO SCH (10:02)
[2020-03-22] MEDS: LEVETIRACETAM 500 MG TABLET PO SCH (10:02)
[2020-03-22] MEDS: MAGNESIUM OXIDE 400 MG TABLET PO SCH ×2 (10:02→17:11)
[2020-03-22] MEDS: ENOXAPARIN SODIUM INJ 40 MG/0.4 ML DISP.SYRIN SUBCUT SCH (10:02)
[2020-03-22] MEDS ORDERED: POTASSIUM CHLORIDE 10 MEQ TABLET.ER PO ONE (15:22)
[2020-03-22 15:56] VITALS: BP 133/62
[2020-03-22 16:32] LABS: HEMATOCRIT 40.2 % (37.9-51.0); HEMOGLOBIN 13.6 g/dL (13.5-17.0); MEAN CORPUSCULAR HGB CONC 33.8 g/dL (32.0-36.0); MEAN CORPUSCULAR VOLUME 98 fl (80-97); RED BLOOD COUNT 4.12 10^6/uL (4.35-5.55); WHITE BLOOD COUNT 9.7 10^3/uL (4.0-10.5)
[2020-03-22 16:51] LABS: ALBUMIN 3.5 g/dL (3.5-5.0); ALKALINE PHOSPHATASE 81 U/L (38-126); ASPARTATE AMINO TRANSFERASE 25 U/L (17-59); BILIRUBIN,TOTAL 0.3 mg/dL (0.2-1.3); BLOOD UREA NITROGEN 18 mg/dL (7-20); CALCIUM 8.8 mg/dL (8.4-10.2); GLUCOSE 125 mg/dL (75-110); POTASSIUM 3.6 mmol/L (3.6-5.0)
[2020-03-22 16:56] LABS: CARBON DIOXIDE 33 mmol/L (22-30); CHLORIDE 96 mmol/L (98-107)
[2020-03-22 16:58] LABS: ANION GAP 4 (5-19)
[2020-03-22 16:59] LABS: ABSOLUTE LYMPHOCYTES# (MANUAL) 0.6 10^3/uL (0.5-4.7); ABSOLUTE MONOCYTES # (MANUAL) 0.5 10^3/uL (0.1-1.4); BASOPHILS % (MANUAL) 0 % (0-2); EOSINOPHILS % (MANUAL) 0 % (0-6); LYMPHOCYTES % (MANUAL) 5 % (13-45); MONOCYTES % (MANUAL) 5 % (3-13); SEGMENTED NEUTROPHILS % (MAN) 86 % (42-78); TOTAL CELLS COUNTED 100
[2020-03-22 17:01] LABS: ANISOCYTOSIS SLIGHT; PLATELET CLUMPS PRESENT; PLATELET COMMENT ADEQUATE; PLATELET COUNT 289 10^3/uL (150-450); TOXIC GRANULATION SLIGHT; TOXIC VACUOLATION PRESENT
[2020-03-22 17:02] LABS: METAMYELOCYTES % (MANUAL) 1 % (0-1); MYELOCYTES % (MANUAL) 1 % (0); PROMYELOCYTES % (MANUAL) 1 % (0)
[2020-03-22] MEDS: CETIRIZINE 5 MG TABLET PO SCH (17:11)
[2020-03-22] MEDS: TAMSULOSIN HCL 0.4 MG CAP.SR.24H PO SCH (17:11)
[2020-03-22] MEDS: FINASTERIDE 5 MG TABLET PO SCH (17:12)
--- NOTE | 2020-03-22 17:14 | PDOC DISCHARGE SUMMARY ---
Impression - Admit/DC Date/PCP Admission Date/Primary Care Provider: 03/19/20 13:39 BARBER COLLADO MD Discharge Date: 03/22/20 - Discharge Diagnosis (1) Acute exacerbation of chronic obstructive pulmonary disease (COPD) Is this a current diagnosis for this admission?: Yes (2) Pulmonary hypertension Is this a current diagnosis for this admission?: Yes (3) Nicotine dependence, cigarettes, uncomplicated Is this a current diagnosis for this admission?: Yes (4) Stage 4 lung cancer Is this a current diagnosis for this admission?: Yes - Additional Information Referrals: BARBER COLLADO MD [Primary Care Provider] - Prescriptions: Prednisone [Deltasone 20 mg Tablet] 40 mg PO DAILY #5 tablet Home Medications: Albuterol Sulfate [Proair HFA Inhalation Aerosol 8.5 gm MDI] 2 puff IH Q4HP PRN 02/01/19 Aspirin [Ecotrin 81 mg EC Tablet] 81 mg PO QHS 02/01/19 Butalb/Acetaminophen/Caffeine [Fioricet (50-325-40 mg) Tablet] 1 tab PO Q4HP PRN 02/01/19 Clopidogrel Bisulfate [Plavix 75 mg Tablet] 75 mg PO QHS 02/01/19 Dexlansoprazole [Dexilant 30 mg Capsule] 30 mg PO QHS 02/01/19 Diclofenac Sodium 1 gm TOP QIDP PRN 02/01/19 Duloxetine HCl [Cymbalta] 60 mg PO Q12 02/01/19 Finasteride [Proscar 5 mg Tablet] 5 mg PO QPM 02/01/19 Fluticasone Propionate [Flonase Nasal Loraine 50 Mcg/Loraine 16 gm] 1 spray NAREB DAILY 02/01/19 Fluticasone/Salmeterol [Advair 250-50 Diskus 14 Dose/Diskus] 1 puff IH Q12 02/01/19 Folic Acid [Folvite 1 mg Tablet] 1 mg PO QHS 02/01/19 Levetiracetam [Keppra 500 mg Tablet] 500 mg PO Q12 02/01/19 Levocetirizine Dihydrochloride [Xyzal] 5 mg PO QPM 02/01/19 Montelukast Sodium [Singulair 10 mg Tablet] 10 mg PO QHS 02/01/19 Olanzapine [Zyprexa] 20 mg PO QHS 02/01/19 Tamsulosin HCl [Flomax 0.4 mg Cap.sr] 0.4 mg PO QPM 02/01/19 Magnesium Oxide [Mag-Oxide] 500 mg PO BID 09/28/19 Ondansetron [Zofran Odt 4 mg Tablet] 8 mg PO TIDP PRN 09/28/19 Dronabinol 5 mg PO BID@07,12 12/11/19 Nitroglycerin [Nitrostat 0.4 mg (1/150 Gr) Tabs 25/Bottle] 1 tab SL Q5MP PRN 12/11/19 Potassium Chloride [Klor-Con M20] 20 meq PO DAILY 12/11/19 Vit/Dha [ Multi + Dha Capsule] 1 cap PO DAILY 12/11/19 Rosuvastatin Calcium 10 mg PO QHS 12/11/19 Diphenoxylate HCl/Atrop Sulf [Lomotil 2.5 mg Tablet] 1 tab PO Q6HP PRN #120 tablet 12/12/19 Promethazine HCl 12.5 mg PO Q6HP PRN #60 tablet 12/12/19 Hydromorphone HCl [Dilaudid] 8 mg PO Q6HP PRN 03/19/20 Megestrol Acetate [Megace 20 mg Tablet] 80 mg PO DAILY 03/19/20 Tiotropium [place] [Spiriva Handihaler 5 Cap/Kit (18 Mcg/Cap)] 1 cap IH DAILY 03/19/20 Trihexyphenidyl HCl [Artane 2 mg Tablet] 2 mg PO Q12 03/19/20 Prednisone [Deltasone 20 mg Tablet] 40 mg PO DAILY #5 tablet 03/22/20 History of Present Illiness History of Present Illness: LAKSHMI ALAMO is a 64 year old male,He has a history of recurrent lung cancer, COPD, a recalcitrant smoker, he continues to smoke despite lung cancer on active chemotherapy, he came to the office today for evaluation of severe bilateral leg swelling, shortness of breath, in the office he was evaluated he has tremendous bilateral edema up to the thighs, he was audibly wheezing bilaterally on auscultation of his lungs and he has JVD because of all these findings I felt patient needed to be admitted to the hospital for treatment.Transthoracic echocardiogram was done the left ventricle is normal wall thickness, estimated ejection fraction 65%, Doppler measurements suggest impaired left ventricular relaxation which is associated with grade 1/4 or mild diastolic dysfunction the pulmonary pressure could not be measured,Because the tricuspid regurgitation jet envelope was not well defined to measure right ventricular systolic pressure accurately Lungs are hyperinflated and hyperlucent from obstructive disease, there is bandlike scarring along the anterior aspect of the right upper lobe adjacent to the second, third, and fourth ribs. Hospital Course Hospital Course: Patient admitted for the management of acute COPD exacerbation, lower extremity edema, he was treated with intravenous Solu-Medrol, bronchodilators. He has history of lung cancer on active chemotherapy, patient unfortunately continues to smoke cigarettes despite recurrent lung cancer .CAT scan of the chest was obtained there was no evidence of lung mass on the CT chest. Because of concern for CHF a 2D echo was done, he has preserved ejection fraction of left ventricle, the EF was more than 60% the Doppler measurement was consistent with grade 1 diastolic dysfunction. Patient improved significantly with treatment with resolution of the audible wheeze that he had on admission, the leg swelling also was resolved. Patient is stable enough for discharge home today. Physical Exam Vital Signs: Temp Pulse Resp BP Pulse Ox 98.2 F 88 18 133/62 H 90 L 03/22/20 14:50 03/22/20 14:50 03/22/20 14:50 03/22/20 14:50 03/22/20 14:50 Intake & Output 03/21/20 03/22/20 03/23/20 06:59 06:59 06:59 Intake Total 1918 1248 501 Output Total 3080 2650 900 Balance -1162 -1402 -399 Weight 69.6 kg 69.6 kg General appearance: PRESENT: no acute distress Eye exam: PRESENT: PERRLA Respiratory exam: PRESENT: clear to auscultation todd Cardiovascular exam: PRESENT: +S1, +S2 GI/Abdominal exam: PRESENT: soft Neurological exam: PRESENT: alert, CN II-XII grossly intact Results Laboratory Results: WBC 9.7 10^3/uL (4.0-10.5) 03/22/20 16:15 RBC 4.12 10^6/uL (4.35-5.55) L 03/22/20 16:15 Hgb 13.6 g/dL (13.5-17.0) 03/22/20 16:15 Hct 40.2 % (37.9-51.0) 03/22/20 16:15 MCV 98 fl (80-97) H 03/22/20 16:15 MCH 33.0 pg (27.0-33.4) 03/22/20 16:15 MCHC 33.8 g/dL (32.0-36.0) 03/22/20 16:15 RDW 14.0 % (11.5-14.0) 03/22/20 16:15 Plt Count 289 10^3/uL (150-450) 03/22/20 16:15 Lymph % (Auto) Not Reportable 03/22/20 16:15 [place] % (Auto) Not Reportable 03/22/20 16:15 Eos % (Auto) Not Reportable 03/22/20 16:15 Baso % (Auto) Not Reportable 03/22/20 16:15 Absolute Neuts (auto) Not Reportable 03/22/20 16:15 Absolute Lymphs (auto) Not Reportable 03/22/20 16:15 Absolute Monos (auto) Not Reportable 03/22/20 16:15 Absolute Eos (auto) Not Reportable 03/22/20 16:15 Absolute Basos (auto) Not Reportable 03/22/20 16:15 Total Counted 100 03/22/20 16:15 Seg Neutrophils % Not Reportable 03/22/20 16:15 Seg Neuts % (Manual) 86 % (42-78) H 03/22/20 16:15 Lymphocytes % (Manual) 5 % (13-45) L 03/22/20 16:15 Atypical Lymphs % 1 % (0) 03/22/20 16:15 Monocytes % (Manual) 5 % (3-13) 03/22/20 16:15 Eosinophils % (Manual) 0 % (0-6) 03/22/20 16:15 Basophils % (Manual) 0 % (0-2) 03/22/20 16:15 Metamyelocytes % 1 % (0-1) 03/22/20 16:15 Myelocytes % 1 % (0) H 03/22/20 16:15 Promyelocytes % 1 % (0) H 03/22/20 16:15 Abs Neuts (Manual) 8.6 10^3/uL (1.7-8.2) H 03/22/20 16:15 Abs Lymphs (Manual) 0.6 10^3/uL (0.5-4.7) 03/22/20 16:15 Abs Monocytes (Manual) 0.5 10^3/uL (0.1-1.4) 03/22/20 16:15 Absolute Eos (Manual) 0.0 10^3/uL (0.0-0.6) 03/22/20 16:15 Abs Basophils (Manual) 0.0 10^3/uL (0.0-0.2) 03/22/20 16:15 Toxic Granulation SLIGHT 03/22/20 16:15 Toxic Vacuolation PRESENT 03/22/20 16:15 Clumped Platelets PRESENT 03/22/20 16:15 Platelet Comment ADEQUATE 03/22/20 16:15 Anisocytosis SLIGHT 03/22/20 16:15 RBC Morph Comment NORMO-CYTIC/CHROMIC 03/21/20 09:14 Sodium 132.6 mmol/L (137-145) L 03/22/20 16:15 Potassium 3.6 mmol/L (3.6-5.0) 03/22/20 16:15 Chloride 96 mmol/L (98-107) L 03/22/20 16:15 Carbon Dioxide 33 mmol/L (22-30) H 03/22/20 16:15 Anion Gap 4 (5-19) L 03/22/20 16:15 BUN 18 mg/dL (7-20) 03/22/20 16:15 Creatinine 0.77 mg/dL (0.52-1.25) 03/22/20 16:15 Est GFR ( Amer) > 60 (>60) 03/22/20 16:15 Est GFR (MDRD) Non-Af > 60 (>60) 03/22/20 16:15 Glucose 125 mg/dL (75-110) H 03/22/20 16:15 Calcium 8.8 mg/dL (8.4-10.2) 03/22/20 16:15 Total Bilirubin 0.3 mg/dL (0.2-1.3) 03/22/20 16:15 Direct Bilirubin 0.0 mg/dL (0.0-0.4) 03/22/20 16:15 Neonat Total Bilirubin Not Reportable 03/22/20 16:15 Neonat Direct Bilirubin Not Reportable 03/22/20 16:15 Neonat Indirect Bili Not Reportable 03/22/20 16:15 AST 25 U/L (17-59) 03/22/20 16:15 ALT 20 U/L (<50) 03/22/20 16:15 Alkaline Phosphatase 81 U/L (38-126) 03/22/20 16:15 Creatine Kinase 50 U/L (55-170) L 03/20/20 06:14 CK-MB (CK-2) 1.15 ng/mL (<4.55) 03/20/20 06:14 Troponin I < 0.012 ng/mL 03/20/20 06:14 NT-Pro-B Natriuret Pep 501 pg/mL (<125) H 03/19/20 14:37 Total Protein 6.0 g/dL (6.3-8.2) L 03/22/20 16:15 Albumin 3.5 g/dL (3.5-5.0) 03/22/20 16:15 Urine Color YELLOW 03/19/20 18:10 Urine Appearance CLEAR 03/19/20 18:10 Urine pH 7.0 (5.0-9.0) 03/19/20 18:10 Ur Specific [place] 1.003 03/19/20 18:10 Urine Protein NEGATIVE mg/dL (NEGATIVE) 03/19/20 18:10 Urine Glucose (UA) NEGATIVE mg/dL (NEGATIVE) 03/19/20 18:10 Urine Ketones NEGATIVE mg/dL (NEGATIVE) 03/19/20 18:10 Urine Blood NEGATIVE (NEGATIVE) 03/19/20 18:10 Urine Nitrite NEGATIVE (NEGATIVE) 03/19/20 18:10 Urine Bilirubin NEGATIVE (NEGATIVE) 03/19/20 18:10 Urine Urobilinogen NEGATIVE mg/dL (<2.0) 03/19/20 18:10 Ur Leukocyte Esterase NEGATIVE (NEGATIVE) 03/19/20 18:10 Urine Mucus (Auto) RARE /LPF 03/19/20 18:10 Urine Ascorbic Acid NEGATIVE (NEGATIVE) 03/19/20 18:10 03/19/20 03/19/20 03/20/20 14:37 22:09 06:14 CK-MB (CK-2) 1.58 1.26 1.15 Troponin I 0.014 < 0.012 < 0.012 NT-Pro-B Natriuret Pep 501 H Impressions: Chest X-Ray 03/19/20 00:00 IMPRESSION: Chronic findings as detailed above. There is no acute cardiopulmonary process. Venous Doppler Study 03/19/20 19:46 IMPRESSION: No DVT in the bilateral lower extremities. Chest CT 03/20/20 00:00 IMPRESSION: Stable right upper chest wall pleural thickening, rib demineralization and pathologic anterior right 4th rib fracture. Old left lower lobectomy Post cholecystectomy Stroke Is this a Stroke Patient?: No Acute Heart Failure - Is this a Heart Failure Patient?: No
[2020-03-24 09:34] LABS: PATH REVIEW PATHOLOGIST REVIEWED
== END 2020-03-22 17:34 | disposition home or self-care (01) | DRG 191 ==
LOC: 3W 13:39
PROVIDERS: ADMIT Internal Medicine; ATTEND Internal Medicine
DX: J44.1 Chronic obstructive pulmonary disease with (acute) exacerbation (principal); C34.92 Malignant neoplasm of unspecified part of left bronchus or lung; I27.20 Pulmonary hypertension, unspecified; I25.10 Atherosclerotic heart disease of native coronary artery without angina pectoris; Z79.899 Other long term (current) drug therapy; E78.5 Hyperlipidemia, unspecified; I10 Essential (primary) hypertension; I73.9 Peripheral vascular disease, unspecified; M19.90 Unspecified osteoarthritis, unspecified site; F32.9 Major depressive disorder, single episode, unspecified; Z90.49 Acquired absence of other specified parts of digestive tract; F17.210 Nicotine dependence, cigarettes, uncomplicated; I25.2 Old myocardial infarction
CPT/HCPCS: 36415; 71045; 71260; 80048; 80053; 80076; 81001; 82550; 82553; 83880; 84484; 85025; 93005; 93010; 93306; 93970; A9270-GY; J1650; J1940; J2930; J3490; J7050

== ENCOUNTER 2020-05-24 01:33 | Emergency (ER) | payer MEDICARE ==
[2020-05-24 03:09] LABS: ABSOLUTE BASOPHILS # (AUTO) 0.1 10^3/uL (0.0-0.2); ABSOLUTE EOSINOPHILS # (AUTO) 0.2 10^3/uL (0.0-0.6); ABSOLUTE LYMPHOCYTES (AUTO) 1.3 10^3/uL (0.5-4.7); ABSOLUTE MONOCYTES (AUTO) 1.1 10^3/uL (0.1-1.4); ABSOLUTE NEUT (AUTO) 7.2 10^3/uL (1.7-8.2); BASOPHILS % (AUTO) 0.7 % (0-2); EOSINOPHILS % (AUTO) 2.5 % (0-6); HEMATOCRIT 37.8 % (37.9-51.0); HEMOGLOBIN 12.8 g/dL (13.5-17.0); LYMPHOCYTES % (AUTO) 13.5 % (13-45); MEAN CORPUSCULAR HEMOGLOBIN 32.5 pg (27.0-33.4); MEAN CORPUSCULAR HGB CONC 33.9 g/dL (32.0-36.0); MEAN CORPUSCULAR VOLUME 96 fl (80-97); MONOCYTES % (AUTO) 10.9 % (3-13); PLATELET COUNT 304 10^3/uL (150-450); RED BLOOD COUNT 3.94 10^6/uL (4.35-5.55); SEGMENTED NEUTROPHILS % (AUTO) 72.4 % (42-78); TOTAL CELLS COUNTED % (AUTO) 100 %; WHITE BLOOD COUNT 9.9 10^3/uL (4.0-10.5)
[2020-05-24 03:54] LABS: ALBUMIN 3.4 g/dL (3.5-5.0); ALKALINE PHOSPHATASE 85 U/L (38-126); ANION GAP 7 (5-19); ASPARTATE AMINO TRANSFERASE 22 U/L (17-59); BILIRUBIN,TOTAL 0.3 mg/dL (0.2-1.3); BLOOD UREA NITROGEN 2 mg/dL (7-20); CARBON DIOXIDE 30 mmol/L (22-30); CHLORIDE 94 mmol/L (98-107); GLUCOSE 95 mg/dL (75-110); POTASSIUM 3.4 mmol/L (3.6-5.0); TOTAL PROTEIN 6.2 g/dL (6.3-8.2)
[2020-05-24] MEDS ORDERED: NORMAL SALINE 1000 ML 1,000 ML IV ONE (05:50)
[2020-05-24] MEDS ORDERED: ONDANSETRON HCL INJ/PF 4 MG/2 ML SDV IV ONE (05:50)
--- NOTE | 2020-05-24 05:51 | ER Document Report ---
ED General - General Chief Complaint: Vomiting Stated Complaint: VOMITING BLOOD Time Seen by Provider: 05/24/20 05:03 Primary Care Provider: BARBER COLLADO MD [Primary Care Provider] - Follow up as needed AYDEE SAUCEDA MD [ACTIVE STAFF] - Follow up as needed Mode of Arrival: Medic Information source: Patient, Relative - Spouse Notes: 64-year-old male patient with history of lung cancer presenting to the emergency department with 's report that he vomited blood 6 times yesterday. She also reports patient has had increased malaise and generalized weakness. Denies any unilateral weakness. Denies any diarrhea, fever, chills. She states that she thinks his cancer is getting worse. TRAVEL OUTSIDE OF THE [place] IN LAST 30 DAYS: No - Related Data Allergies/Adverse Reactions: Penicillins Allergy (Verified 12/11/19 10:03) Past Medical History - General Information source: Patient, Relative - Spouse - Social History Smoking Status: Current Every Day Smoker Chew tobacco use (# tins/day): No Frequency of alcohol use: None Drug Abuse: None Family History: Other - Unable to obtain due to patient's condition, spouse unaware. - Past Medical History Cardiac Medical History: Reports: Hx Coronary Artery Disease, Hx Heart Attack - x3, most recent 1997, Hx Hypercholesterolemia, Hx Hypertension, Hx Peripheral Vascular Disease Pulmonary Medical History: Reports: Hx Bronchitis, Hx COPD, Hx Pneumonia, Hx Sleep Apnea Denies: Hx Asthma, Hx Tuberculosis Neurological Medical History: Reports: Hx Migraine, Hx Seizures - brain injury. Denies: Hx Cerebrovascular Accident Endocrine Medical History: Denies: Hx Hyperthyroidism, Hx Hypothyroidism Renal/ Medical History: Reports: Hx Benign Prostatic Hyperplasia. Denies: Hx Peritoneal Dialysis Malignancy Medical History: Reports Hx Lung Cancer Musculoskeletal Medical History: Reports Hx Arthritis Psychiatric Medical History: Reports: Hx Anxiety, Hx Depression Denies: Hx Bipolar Disorder, Hx Post Traumatic Stress Disorder Past Surgical History: Reports: Hx Cardiac Catheterization - Stent 2, Hx Cardiac Surgery, Hx Cholecystectomy. Denies: Hx Pacemaker - Immunizations Immunizations up to date: Yes Hx Diphtheria, Pertussis, Tetanus Vaccination: Yes Hx Pneumococcal Vaccination: 09/20/11 Review of Systems - Review of Systems Constitutional: Malaise, Weakness - Generalized EENT: No symptoms reported Cardiovascular: No symptoms reported Respiratory: No symptoms reported Gastrointestinal: Nausea, Vomiting, Blood in vomit Genitourinary: No symptoms reported Male Genitourinary: No symptoms reported Musculoskeletal: No symptoms reported Skin: No symptoms reported Hematologic/Lymphatic: No symptoms reported Neurological/Psychological: No symptoms reported Physical Exam - Vital signs Vitals: Resp Pulse Ox 19 95 05/24/20 01:40 05/24/20 01:40 - Notes Notes: PHYSICAL EXAMINATION: GENERAL: Cachectic. HEAD: Atraumatic, normocephalic. EYES: Pupils equal round and reactive to light, extraocular movements intact, sclera anicteric, conjunctiva are normal. ENT: Nares patent, oropharynx clear without exudates. Moist mucous membranes. NECK: Normal range of motion, supple without lymphadenopathy LUNGS: Breath sounds clear to auscultation bilaterally and equal. No wheezes rales or rhonchi. HEART: Regular rate and rhythm without murmurs ABDOMEN: Soft, nontender, nondistended abdomen. No guarding, no rebound. No masses appreciated. Musculoskeletal: Normal range of motion, no pitting or edema. No cyanosis. NEUROLOGICAL: Cranial nerves grossly intact. Normal speech. Normal sensory, motor exams PSYCH: Normal mood, normal affect. SKIN: Warm, Dry, normal turgor, no rashes or lesions noted. Course - Re-evaluation Re-evalutation: 05/24/20 08:27 Called and spoke with Dr. Sauceda. Reviewed patient's labs, CTs and we both feel comfortable with the patient being discharged home. He has been in the emergency department for 7 hours and has had no episodes of emesis. He will follow-up in the office on Tuesday, return sooner if vomiting returns. - Vital Signs Vital signs: Temp Pulse Resp BP Pulse Ox 97.7 F 18 152/72 H 95 05/24/20 08:01 05/24/20 07:00 05/24/20 06:01 05/24/20 07:00 - Laboratory Result Diagrams: 05/24/20 01:52 05/24/20 01:52 Laboratory results interpreted by me: 05/24/20 05/24/20 05/24/20 01:52 01:52 01:52 RBC 3.94 L Hgb 12.8 L Hct 37.8 L RDW 15.0 H Sodium 131.2 L Potassium 3.4 L Chloride 94 L BUN 2 L Total Protein 6.2 L Albumin 3.4 L Lipase < 10.0 L Discharge - Discharge Clinical Impression: Generalized weakness, Malaise Hematemesis Qualifiers: Nausea presence: unspecified Qualified Code(s): K92.0 - Hematemesis Condition: Stable Disposition: HOME, SELF-CARE Additional Instructions: Your blood counts in the emergency department today were reassuring. The CAT scans of your chest abdomen and pelvis did not show any acute findings today. I did call and speak with your primary care provider, Dr. Sauceda and we feel comfortable at this point sending you home. I will send you home with 2 different prescriptions for nausea. Please take them as prescribed. Please follow-up with Dr. Sauceda in the office on Tuesday. If you develop any additional symptoms or you start vomiting blood again please return to the emergency department immediately. Prescriptions: Promethazine HCl [Phenergan 25 mg Tablet] 25 - 50 mg PO ASDIR PRN #15 tablet PRN Reason: Ondansetron [Zofran Odt 4 mg Tablet] 1 - 2 tab PO Q4H PRN #15 tab.rapdis PRN Reason: For Nausea/Vomiting Referrals: BARBER COLLADO MD [Primary Care Provider] - Follow up as needed AYDEE SAUCEDA MD [ACTIVE STAFF] - Follow up as needed
--- NOTE | 2020-05-24 07:45 | RADIOLOGY REPORT (SQ) ---
CT chest, abdomen and pelvis with contrast on 05/24/2020 at 6:46 AM CLINICAL INDICATION: Generalized abdominal pain, vomiting blood, history of lung cancer TECHNIQUE: Multiple axial images are obtained throughout the chest, abdomen and pelvis following the administration of IV contrast. This exam was performed according to our departmental dose-optimization program, which includes automated exposure control, adjustment of the mA and/or kV according to patient size and/or use of iterative reconstruction technique. Total DLP is 982.89 mGy*cm. COMPARISON: Chest CT from 03/20/[address] abdomen and pelvis from 12/11/2019 FINDINGS: CHEST: The patient is again noted to be status post left lower lobectomy. Emphysematous changes of the lungs are noted. There is stable pleural thickening in the right lateral upper chest and right anterior upper chest. There is stable right apical scarring. Stable peripheral atelectasis or scarring is noted in the left lower lung as well. No acute pulmonary opacity is noted. There is no thoracic aortic aneurysm or dissection. There is no thoracic adenopathy. There is no pleural or pericardial effusion. Chronic right anterior rib deformities are again noted. No acute bony abnormality of the thorax is noted. ABDOMEN: The patient is status post cholecystectomy. Vascular calcifications are noted. The solid abdominal organs are unremarkable. There is no abdominal adenopathy. There is no free fluid or free air within the abdomen. Increased stool is noted in the colon suggesting constipation. The abdominal portion of the GI tract is otherwise unremarkable. There is a small umbilical hernia containing only fat. Pelvis: There is no free fluid in the pelvis. There is no pelvic adenopathy. Pelvic portion of the GI tract is otherwise unremarkable. No acute bony abnormality is noted. Degenerative changes are noted in the spine. IMPRESSION: 1. Increased stool in the colon consistent with constipation. 2. Emphysema with stable appearance of the chest.
[2020-05-24] MEDS ORDERED: PANTOPRAZOLE SODIUM 40 MG VIAL IV ONE (08:25)
[2020-05-24 09:21] VITALS: BP 143/70
== END 2020-05-24 09:23 | disposition home or self-care (01) ==
LOC: ER 01:33
DX: K92.0 Hematemesis (principal); R53.1 Weakness; R53.81 Other malaise; I25.10 Atherosclerotic heart disease of native coronary artery without angina pectoris; I10 Essential (primary) hypertension; I25.2 Old myocardial infarction; J44.9 Chronic obstructive pulmonary disease, unspecified; F17.200 Nicotine dependence, unspecified, uncomplicated; Z85.118 Personal history of other malignant neoplasm of bronchus and lung; Z95.5 Presence of coronary angioplasty implant and graft; Z88.0 Allergy status to penicillin
CPT/HCPCS: 99285; 96361; 96374; 96375; 36415; 83690; 85025; 80053; 71260; 74177; C9113; J2405; J7030

== ENCOUNTER → 2020-07-11 | Outpatient (CLI) | payer MEDICARE ==
--- NOTE | 2020-07-11 14:15 | RADIOLOGY REPORT (SQ) ---
EXAM DESCRIPTION: CT CHEST WITH IMAGES COMPLETED DATE/TIME: 07/11/2020 9:37 am REASON FOR STUDY: C34.2 MALIGNANT NEOPLASM OF MIDDLE LOBE, BRONCHUS OR LUNG C34.2 MALIGNANT NEOPLAS M OF MIDDLE LOBE, BRONCHUS OR LUNG COMPARISON: 05/24/2020 TECHNIQUE: CT scan of the chest performed using helical scanning technique with dynamic intravenous contrast injection. Images reviewed with lung, soft tissue and bone windows. Reconstructed coronal and sagittal MPR and MIP images reviewed. All images stored on PACS. All CT scanners at this facility use dose modulation, iterative reconstruction, and/or weight based d osing when appropriate to reduce radiation dose to as low as reasonably achievable (ALARA). [facility]: Dose Right [facility]: CareDose [facility]: Dose Right [facility]: Teradose 4D [facility]: [employer] CONTRAST TYPE AND DOSE: contrast/concentration: Isovue 350.00 mmol/ml; Total Contrast Delivered: 79. 0 ml; Total Saline Delivered: 30.4 ml RENAL FUNCTION: Creatinine 0.7 RADIATION DOSE: CT Rad equipment meets quality standard of care and radiation dose reduction techniq ues were employed. CTDIvol: 5.9 mGy. DLP: 238 mGy-cm. . LIMITATIONS: None. FINDINGS: LUNGS AND PLEURA: Status post left lower lobectomy. Emphysematous change with irregular r ight upper lobe pleuroparenchymal change, similar to prior exam. More focal nodular opacity within t he right upper lobe measures 8.5 mm (series 4, image 48), stable. No new discrete nodules or masses. Additional multifocal areas of subpleural cystic change and scarring bilaterally. No pleural effus ion or pneumothorax. HILAR AND MEDIASTINAL STRUCTURES: Stable right paratracheal soft tissue. Stable shotty mediastinal n odes without new discrete adenopathy. HEART AND VASCULAR STRUCTURES: Normal heart size. No aneurysm. Scattered coronary atherosclerosis. No pericardial effusion. HARDWARE: Right approach PICC cold over right subclavian vein. UPPER ABDOMEN: No acute findings. Prior cholecystectomy. THYROID AND OTHER SOFT TISSUES: No masses. No adenopathy. BONES: No acute bony abnormality. Irregular mixed sclerotic appearance of the 2nd through 4th right anterior ribs, likely treatment related. No new discrete lytic or blastic osseous lesions. OTHER: No other significant finding. IMPRESSION: 1. Emphysematous change with irregular pleuroparenchymal consolidation with along the a nterior right upper lobe, grossly similar in distribution from prior. No definite evidence of new in trathoracic disease. 2. Additional chronic findings as above. TECHNICAL DOCUMENTATION: JOB ID: [id number] Quality ID # [id number]: Final reports with documentation of one or more dose reduction techniques (e.g., Au tomated exposure control, adjustment of the mA and/or kV according to patient size, use of iterative reconstruction technique) 2010 [employer]- All Rights Reserved Reading location - IP/workstation name: [email or web address]
== END ==
LOC: RAD 09:14
PROVIDERS: ATTEND Internal Medicine
DX: C34.2 Malignant neoplasm of middle lobe, bronchus or lung (principal)
CPT/HCPCS: 71260; 82565

== ENCOUNTER 2020-08-08 11:59 | Emergency (ER) | payer MEDICARE ==
--- NOTE | 2020-08-08 14:52 | ER Document Report ---
ED Respiratory Problem - General Chief Complaint: Shortness Of Breath Stated Complaint: BREATHING DIFFICULTY Time Seen by Provider: 08/08/20 14:08 Primary Care Provider: BARBER COLLADO MD [Primary Care Provider] - Follow up in 1 week Mode of Arrival: Ambulatory Information source: Patient Notes: Patient presents complaining of low oxygen saturation at his oncologist office earlier today. Patient was advised that he should come here and get started on antibiotics. Patient is currently being treated for stage IV lung cancer with chemotherapy every 3 weeks. Patient states he is already previously gone through radiation treatment. Patient denies any cough at this time. Patient denies any fever, nausea or vomiting. Patient states he has right-sided chest discomfort but he has had this chronic pain for the past year that has been attributed to his lung cancer and treatment. Patient does continue to smoke 1- 1/2 packs of cigarettes a day TRAVEL OUTSIDE OF THE [place] IN LAST 30 DAYS: No - HPI Patient complains to provider of: COPD, Cough Onset: This morning Quality of pain: Achy Pain Level: 1 Context: Hx COPD, Malignancy, Smoker Chest pain/discomfort: Pain Associated symptoms: Chest pain/discomfort. denies: Wheezing Similar symptoms previously: Yes Recently seen / treated by doctor: Yes - Related Data Allergies/Adverse Reactions: Penicillins Allergy (Verified 12/11/19 10:03) Past Medical History - General Information source: Patient - Social History Smoking Status: Current Every Day Smoker Chew tobacco use (# tins/day): No Frequency of alcohol use: None Drug Abuse: None Occupation: None Lives with: Family Family History: Other - Unable to obtain due to patient's condition, spouse unaware. Patient has homicidal ideation: No - Past Medical History Cardiac Medical History: Reports: Hx Coronary Artery Disease, Hx Heart Attack - x3, most recent 1997, Hx Hypercholesterolemia, Hx Hypertension, Hx Peripheral Vascular Disease Pulmonary Medical History: Reports: Hx Bronchitis, Hx COPD, Hx Pneumonia, Hx Sleep Apnea Denies: Hx Asthma, Hx Tuberculosis Neurological Medical History: Reports: Hx Migraine, Hx Seizures - brain injury. Denies: Hx Cerebrovascular Accident Endocrine Medical History: Denies: Hx Hyperthyroidism, Hx Hypothyroidism Renal/ Medical History: Reports: Hx Benign Prostatic Hyperplasia. Denies: Hx Peritoneal Dialysis Malignancy Medical History: Reports Hx Lung Cancer Musculoskeletal Medical History: Reports Hx Arthritis Psychiatric Medical History: Reports: Hx Anxiety, Hx Depression Denies: Hx Bipolar Disorder, Hx Post Traumatic Stress Disorder Past Surgical History: Reports: Hx Cardiac Catheterization - Stent 2, Hx Cardiac Surgery, Hx Cholecystectomy. Denies: Hx Pacemaker - Immunizations Immunizations up to date: Yes Hx Diphtheria, Pertussis, Tetanus Vaccination: Yes Hx Pneumococcal Vaccination: 09/20/11 Review of Systems - Review of Systems Constitutional: No symptoms reported. denies: Fever EENT: No symptoms reported Cardiovascular: Chest pain - Chronic chest pain Respiratory: Cough, Other - Hypoxia. denies: Short of breath Gastrointestinal: No symptoms reported. denies: Nausea, Vomiting Genitourinary: No symptoms reported Male Genitourinary: No symptoms reported Musculoskeletal: No symptoms reported. denies: Back pain Skin: No symptoms reported Hematologic/Lymphatic: No symptoms reported Neurological/Psychological: No symptoms reported Physical Exam - Vital signs Vitals: Temp 97.9 F 08/08/20 12:22 - General General appearance: Appears well, Alert In distress: None - HEENT Head: Normocephalic, Atraumatic Eyes: Normal Conjunctiva: Normal Nasal: Normal Mouth/Lips: Normal Neck: Normal, Supple - Respiratory Respiratory status: No respiratory distress Chest status: Nontender Breath sounds: Nonproductive cough Chest palpation: Normal - Cardiovascular Rhythm: Regular Heart sounds: S1 appreciated, S2 appreciated - Abdominal Inspection: Normal Distension: No distension Bowel sounds: Normal Tenderness: Nontender Organomegaly: No organomegaly - Back Back: Normal, Nontender. No: CVA tenderness - Extremities General upper extremity: Normal inspection, Normal strength General lower extremity: Normal inspection, Normal strength - Neurological Neuro grossly intact: Yes Cognition: Normal Iris Coma Scale Eye Opening: Spontaneous Iris Coma Scale Verbal: Oriented Arthur Coma Scale Motor: Obeys Commands Iris Coma Scale Total: 15 - Psychological Associated symptoms: Normal affect, Normal mood - Skin Skin Temperature: Warm Skin Moisture: Dry Skin Color: Normal Course - Re-evaluation Re-evalutation: 08/08/20 16:44 And his room air sat was in the upper 80s, oxygen applied at 2 L, sat presently 90-94 08/08/20 18:00 Patient resting comfortably, patient denies any complaints at this time. Patient denies any chest discomfort or any dyspnea. Patient awaiting CTA at this time. 08/08/20 20:[address], heart rate 120s and oxygen saturation 92 to 99% with mild tachypnea with a respiratory rate of 26 with ambulation. When patient returned to room and was able to rest respiratory rate came down to 19, oxygen saturation was 95 and heart rate decreased to 99. Consulted with Dr. Collado regarding patient's presentation and his diagnostic e valuation here today as patient was initially sent here from Dr. Collado's office. Dr. Collado advises placing patient on doxycycline 100 mg twice a day. He does recommend follow-up in the office after patient's Covid test has been resulted. 08/08/20 20:59 Patient's respirations unlabored, patient's room air saturation 95% at this time. CTA reviewed, no concern for any pneumonia, pneumothorax or PE. Suspect likely COPD exacerbation at this time. The patient was evaluated during the global Covid 19 pandemic, and that diagnosis was suspected/considered upon their initial presentation. Their evaluation, treatment and testing was consistent with current guidelines for patients who present with complaints or symptoms that may be related to Covid 19. Patient presents with upper respiratory symptoms worrisome for possible Covid 19. Good return precautions have been discussed with patient, patient verbalized understanding and is agreeable with discharge plan of care at this time. 08/08/20 23:40 - Vital Signs Vital signs: Temp Pulse Resp BP Pulse Ox 98.6 F 100 16 125/74 91 L 08/08/20 22:04 08/08/20 13:08 08/08/20 22:04 08/08/20 22:04 08/08/20 22:04 - Laboratory Result Diagrams: 08/08/20 15:55 08/08/20 15:55 Laboratory results interpreted by me: 08/08/20 08/08/20 08/08/20 15:34 15:55 15:55 WBC 17.6 H RBC 3.99 L Hgb 13.2 L RDW 14.6 H Seg Neuts % (Manual) 89 H Lymphocytes % (Manual) 7 L Abs Neuts (Manual) 15.7 H ABG pH 7.46 H ABG pO2 49.8 L ABG HCO3 31.2 H ABG Total CO2 32.6 H ABG O2 Saturation 87.0 L Sodium 132.3 L Chloride 93 L Carbon Dioxide 31 H BUN 23 H Glucose 117 H Calcium 10.7 H Labs- All tests 24 hr 08/08/20 08/08/2008/08/20 15:34 15:55 15:55 WBC 17.6 H RBC 3.99 L Hgb 13.2 L Hct 37.9 MCV 95 MCH 32.9 MCHC 34.7 RDW 14.6 H Plt Count 384 Lymph % (Auto) Not Reportable Bledsoe % (Auto) Not Reportable Eos % (Auto) Not Reportable Baso % (Auto) Not Reportable Absolute Neuts (auto) Not Reportable Absolute Lymphs (auto) Not Reportable Absolute Monos (auto) Not Reportable Absolute Eos (auto) Not Reportable Absolute Basos (auto) Not Reportable Total Counted 100 Seg Neutrophils % Not Reportable Seg Neuts % (Manual) 89 H Lymphocytes % (Manual) 7 L Monocytes % (Manual) 4 Eosinophils % (Manual) 0 Basophils % (Manual) 0 Abs Neuts (Manual) 15.7 H Abs Lymphs (Manual) 1.2 Abs Monocytes (Manual) 0.7 Absolute Eos (Manual) 0.0 Abs Basophils (Manual) 0.0 Hypersegmented Neuts PRESENT Platelet Comment ADEQUATE Anisocytosis SLIGHT Tear Drop Cells SLIGHT Schistocytes SLIGHT Carbonic Acid 1.35 HCO3/H2CO3 Ratio 23:1 ABG pH 7.46 H ABG pCO2 44.9 ABG pO2 49.8 L ABG HCO3 31.2 H ABG Total CO2 32.6 H ABG O2 Saturation 87.0 L ABG Base Excess 6.5 FiO2 ROOM AIR Sodium 132.3 L Potassium 4.6 Chloride 93 L Carbon Dioxide 31 H Anion Gap 8 BUN 23 H Creatinine 0.65 Est GFR ( Amer) > 60 Est GFR (MDRD) Non-Af > 60 Glucose 117 H Calcium 10.7 H Total Bilirubin 0.2 Direct Bilirubin 0.1 Neonat Total Bilirubin Not Reportable Neonat Direct Bilirubin Not Reportable Neonat Indirect Bili Not Reportable AST 21 ALT 23 Alkaline Phosphatase 66 Troponin I NT-Pro-B Natriuret Pep Total Protein 6.6 Albumin 4.0 COVID-19 Source Influenza A (Rapid) Influenza B (Rapid) 08/08/20 08/08/20 08/08/20 15:55 17:10 17:10 WBC RBC Hgb Hct MCV MCH MCHC RDW Plt Count Lymph % (Auto) Bledsoe % (Auto) Eos % (Auto) Baso % (Auto) Absolute Neuts (auto) Absolute Lymphs (auto) Absolute Monos (auto) Absolute Eos (auto) Absolute Basos (auto) Total Counted Seg Neutrophils % Seg Neuts % (Manual) Lymphocytes % (Manual) Monocytes % (Manual) Eosinophils % (Manual) Basophils % (Manual) Abs Neuts (Manual) Abs Lymphs (Manual) Abs Monocytes (Manual) Absolute Eos (Manual) Abs Basophils (Manual) Hypersegmented Neuts Platelet Comment Anisocytosis Tear Drop Cells Schistocytes Carbonic Acid HCO3/H2CO3 Ratio ABG pH ABG pCO2 ABG pO2 ABG HCO3 ABG Total CO2 ABG O2 Saturation ABG Base Excess FiO2 Sodium Potassium Chloride Carbon Dioxide Anion Gap BUN Creatinine Est GFR ( Amer) Est GFR (MDRD) Non-Af Glucose Calcium Total Bilirubin Direct Bilirubin Neonat Total Bilirubin Neonat Direct Bilirubin Neonat Indirect Bili AST ALT Alkaline Phosphatase Troponin I 0.014 NT-Pro-B Natriuret Pep 113 Total Protein Albumin COVID-19 Source See comment Influenza A (Rapid) NEGATIVE Influenza B (Rapid) NEGATIVE 08/08/20 18:40 WBC RBC Hgb Hct MCV MCH MCHC RDW Plt Count Lymph % (Auto) B[place]so[place] % (Auto) Eos % (Auto) Baso % (Auto) Absolute Neuts (auto) Absolute Lymphs (auto) Absolute Monos (auto) Absolute Eos (auto) Absolute Basos (auto) Total Counted Seg Neutrophils % Seg Neuts % (Manual) Lymphocytes % (Manual) Monocytes % (Manual) Eosinophils % (Manual) Basophils % (Manual) Abs Neuts (Manual) Abs Lymphs (Manual) Abs Monocytes (Manual) Absolute Eos (Manual) Abs Basophils (Manual) Hypersegmented Neuts Platelet Comment Anisocytosis Tear Drop Cells Schistocytes Carbonic Acid HCO3/H2CO3 Ratio ABG pH ABG pCO2 ABG pO2 ABG HCO3 ABG Total CO2 ABG O2 Saturation ABG Base Excess FiO2 Sodium Potassium Chloride Carbon Dioxide Anion Gap BUN Creatinine Est GFR ( Amer) Est GFR (MDRD) Non-Af Glucose Calcium Total Bilirubin Direct Bilirubin Neonat Total Bilirubin Neonat Direct Bilirubin Neonat Indirect Bili AST ALT Alkaline Phosphatase Troponin I 0.017 NT-Pro-B Natriuret Pep Total Protein Albumin COVID-19 Source Influenza A (Rapid) Influenza B (Rapid) - Diagnostic Test Radiology reviewed: Reports reviewed - EKG Interpretation by Me EKG shows normal: Sinus rhythm [place]/QRS: RBBB When compared to previous EKG there are: No significant change Additional EKG results interpreted by me: 08/08/20 20:58 Patient with sinus rhythm with a rate of 90, patient with a right bundle branch block, QTC 441, no acute ischemic changes Discharge - Discharge Clinical Impression: COPD with acute exacerbation, Nicotine dependence, cigarettes, uncomplicated, Encounter for screening laboratory testing for COVID-19 virus Lung cancer Qualifiers: Laterality: unspecified laterality Lung location: unspecified part of lung Qualified Code(s): C34.90 - Malignant neoplasm of unspecified part of unspecified bronchus or lung Condition: Stable Disposition: HOME, SELF-CARE Instructions: COVID-19 Guidance for Persons Under Investigation, Chronic Obstructive Lung Disease ([facility]), Doxycycline ([facility]) Additional Instructions: Return immediately for any new or worsening symptoms Followup with your primary care provider, call tomorrow to make a followup appointment Home quarantine as instructed until your Covid results are back Follow-up with Dr. Collado's office for your Covid test has been resulted Prescriptions: Doxycycline Hyclate 100 mg PO BID #20 tablet. Referrals: BARBER COLLADO MD [Primary Care Provider] - Follow up in 1 week
[2020-08-08] MEDS ORDERED: IPRATROPIUM/ALBUTEROL 0.5-2.5 MG/3 ML AMPUL NEB ONE (15:13)
--- NOTE | 2020-08-08 15:26 | RADIOLOGY REPORT (SQ) ---
EXAM DESCRIPTION: CHEST SINGLE VIEW IMAGES COMPLETED DATE/TIME: 08/08/2020 3:19 pm REASON FOR STUDY: low pulse ox, cp COMPARISON: 03/19/2020, CT chest dated 07/11/2020 NUMBER OF VIEWS: One view. TECHNIQUE: Single frontal radiographic image of the chest acquired. LIMITATIONS: None. FINDINGS: LUNGS AND PLEURA: Stable appearance. MEDIASTINUM AND HILAR STRUCTURES: Stable heart size and mediastinal structures. HEART AND VASCULAR STRUCTURES: Stable appearance. BONES: No acute findings. HARDWARE: PICC line remains in place. OTHER: No other significant finding. IMPRESSION: Chronic interstitial lung disease. No acute findings. Right-sided PICC line remains in place. TECHNICAL DOCUMENTATION: JOB ID: [id number] 2010 [employer]- All Rights Reserved Reading location - IP/workstation name: [email or web address]
[2020-08-08 16:05] LABS: ARTERIAL BLOOD BASE EXCESS 6.5 mmol/L; ARTERIAL BLOOD H2CO3 1.35 mmol/L (1.05-1.35); ARTERIAL BLOOD HCO3 31.2 mmol/L (20-24); ARTERIAL BLOOD PCO2 44.9 mmHg (35-45); ARTERIAL BLOOD PH 7.46 (7.35-7.45); ARTERIAL BLOOD PO2 49.8 mmHg (80-100); ARTERIAL BLOOD TOTAL CO2 32.6 mmol/L (23-27)
[2020-08-08 16:06] LABS: ARTERIAL BLOOD FIO2 ROOM AIR
[2020-08-08 16:26] LABS: HEMATOCRIT 37.9 % (37.9-51.0); HEMOGLOBIN 13.2 g/dL (13.5-17.0); MEAN CORPUSCULAR HEMOGLOBIN 32.9 pg (27.0-33.4); MEAN CORPUSCULAR HGB CONC 34.7 g/dL (32.0-36.0); MEAN CORPUSCULAR VOLUME 95 fl (80-97); PLATELET COUNT 384 10^3/uL (150-450); RED BLOOD COUNT 3.99 10^6/uL (4.35-5.55); RED CELL DISTRIBUTION WIDTH 14.6 % (11.5-14.0); WHITE BLOOD COUNT 17.6 10^3/uL (4.0-10.5)
[2020-08-08 16:46] LABS: ALKALINE PHOSPHATASE 66 U/L (38-126); ANION GAP 8 (5-19); ASPARTATE AMINO TRANSFERASE 21 U/L (17-59); BILIRUBIN,DIRECT 0.1 mg/dL (0.0-0.4); BILIRUBIN,TOTAL 0.2 mg/dL (0.2-1.3); BLOOD UREA NITROGEN 23 mg/dL (7-20); CALCIUM 10.7 mg/dL (8.4-10.2); CARBON DIOXIDE 31 mmol/L (22-30); CHLORIDE 93 mmol/L (98-107); GLUCOSE 117 mg/dL (75-110); POTASSIUM 4.6 mmol/L (3.6-5.0); TOTAL PROTEIN 6.6 g/dL (6.3-8.2)
[2020-08-08 16:52] LABS: TROPONIN I 0.014 ng/mL
[2020-08-08 16:55] LABS: ABSOLUTE LYMPHOCYTES# (MANUAL) 1.2 10^3/uL (0.5-4.7); ABSOLUTE MONOCYTES # (MANUAL) 0.7 10^3/uL (0.1-1.4); BASOPHILS % (MANUAL) 0 % (0-2); EOSINOPHILS % (MANUAL) 0 % (0-6); LYMPHOCYTES % (MANUAL) 7 % (13-45); MONOCYTES % (MANUAL) 4 % (3-13); SEGMENTED NEUTROPHILS % (MAN) 89 % (42-78); TOTAL CELLS COUNTED 100
[2020-08-08] MEDS ORDERED: NORMAL SALINE 1000 ML 1,000 ML IV ONE (16:55)
[2020-08-08 16:56] LABS: HYPERSEGMENTED NEUTROPHILS PRESENT
[2020-08-08 16:57] LABS: PLATELET COMMENT ADEQUATE
[2020-08-08 16:59] LABS: SCHISTOCYTES SLIGHT; TEAR DROP CELLS SLIGHT
[2020-08-08 17:00] LABS: ANISOCYTOSIS SLIGHT
[2020-08-08 17:56] LABS: A TYPE INFLUENZA AG NEGATIVE (NEGATIVE); B INFLUENZA AG NEGATIVE (NEGATIVE)
--- NOTE | 2020-08-08 18:15 | EKG REPORT ---
SEVERITY:- DEFECTIVE ECG - SINUS OR ECTOPIC ATRIAL RHYTHM RIGHT BUNDLE BRANCH BLOCK CONSIDER HYPERKALEMIA DEFECTIVE EKG LEAD II. : Confirmed by: Jimmy Valentine MD 08-Aug-2020 18:14:24
--- NOTE | 2020-08-08 19:17 | RADIOLOGY REPORT (SQ) ---
EXAM DESCRIPTION: CTA CHEST IMAGES COMPLETED DATE/TIME: 08/08/2020 7:03 pm REASON FOR STUDY: hypoxia, hx lung ca COMPARISON: 07/11/2020 TECHNIQUE: CT scan of the chest performed using helical scanning technique with dynamic intravenous contrast injection. Images reviewed with lung, soft tissue and bone windows. Reconstructed coronal and sagittal MPR images reviewed. Additional 3 dimensional post-processing performed to develop Maximal Intensity Projection images (CA P). All images stored on PACS. All CT scanners at this facility use dose modulation, iterative reconstruction, and/or weight based d osing when appropriate to reduce radiation dose to as low as reasonably achievable (ALARA). [facility]: Dose Right [facility]: CareDose [facility]: Dose Right [facility]: Teradose 4D [facility]: Submittable CONTRAST TYPE AND DOSE: contrast/concentration: Isovue 350.00 mmol/ml; Total Contrast Delivered: 75. 0 ml; Total Saline Delivered: 75.0 ml Contrast bolus adequate for pulmonary arteries and aorta. RENAL FUNCTION: BUN 23 creatinine 0.65 RADIATION DOSE: CT Rad equipment meets quality standard of care and radiation dose reduction techniq ues were employed. CTDIvol: 9.9 - 14.4 mGy. DLP: 583 mGy-cm. . LIMITATIONS: None. FINDINGS: LUNGS AND PLEURA: Chronic pulmonary emphysema and pulmonary fibrosis. No acute pulmonary infiltrate. No pleural effusion. AORTA AND GREAT VESSELS: No aneurysm. No dissection. HEART: No pericardial effusion. No significant coronary artery calcifications. PULMONARY ARTERIES: No emboli visualized in the main pulmonary arteries or the segmental branches. HILAR AND MEDIASTINAL STRUCTURES: No identified masses or abnormal nodes. HARDWARE: None in the chest. UPPER ABDOMEN: No significant findings. Limited exam. THYROID AND OTHER SOFT TISSUES: No masses. No adenopathy. BONES: No acute or significant finding. 3D MIPS: Confirm above findings. OTHER: No other significant finding. IMPRESSION: There is no pulmonary embolus. There is no aortic aneurysm or dissection. Pulmonary em physema and pulmonary fibrosis. COMMENT: Quality ID # [id number]: Final reports with documentation of one or more dose reduction techniques (e.g., Automated exposure control, adjustment of the mA and/or kV according to patient size, use of iterative reconstruction technique) TECHNICAL DOCUMENTATION: JOB ID: [id number] 2010 [employer]- All Rights Reserved Reading location - IP/workstation name: [email or web address]
[2020-08-08] MEDS ORDERED: DOXYCYCLINE HYCLATE 100 MG TABLET PO ONE (21:07)
[2020-08-08 22:14] VITALS: BP 125/74
== END 2020-08-08 22:25 | disposition home or self-care (01) ==
LOC: ER 11:59
DX: J43.9 Emphysema, unspecified (principal); C34.90 Malignant neoplasm of unspecified part of unspecified bronchus or lung; J84.10 Pulmonary fibrosis, unspecified; I45.10 Unspecified right bundle-branch block; F17.210 Nicotine dependence, cigarettes, uncomplicated; I25.10 Atherosclerotic heart disease of native coronary artery without angina pectoris; I10 Essential (primary) hypertension; I25.2 Old myocardial infarction; Z95.5 Presence of coronary angioplasty implant and graft; Z79.899 Other long term (current) drug therapy; Z92.3 Personal history of irradiation; Z20.828 Contact with and (suspected) exposure to other viral communicable diseases
CPT/HCPCS: 93005; 94640; 99285; 96360; 36415; 82803; 85025; 80053; 84484; 87804; 83880; 71045; 71275; 93010; U0003; A9270; J7030; C9803; 87635